=== PATIENT | female | born 1940 | race Caucasian/White ===

== ENCOUNTER 2016-11-07 08:58 | Inpatient (IN) ==
[~2016-11-07 08:58] MED LIST: ACETAMINOPHEN 500 MG TABLET PO ONE; CLINDAMYCIN PB 900 MG/50 ML BAG IV ONE; DEXAMETHASONE 4 MG/ML INJECTION IVP ONE; EPINEPHrine 0.25 MG, BUPIVACAINE 0.25% PF 30 ML, MORPHINE SULFATE 15 MG, KETOROLAC INJ ... OPSITE ONE; FAMOTIDINE PB 20 MG/50 ML BAG IV ONE; LIDOCAINE 1% (10mg/ml) 10mL MDV SQ ONE; MELOXICAM 15 MG TABLET PO ONE; METOCLOPRAMIDE 10mg/2ml INJECTION IVP ONE; NOZIN NASAL SWAB NAS ONE; ONDANSETRON 4 MG/2 ML INJECTION IVP ONE; TRANEXAMIC ACID 1,000 MG in NS 100 ML IV ONE; VANCOMYCIN 1,000 MG INJECTION ONE
[2016-11-07 09:12] VITALS: BMI 24.3
[2016-11-07] MEDS ORDERED: SALINE FLUSH 10ml SYRINGE IVF PRN (09:19)
[2016-11-07] MEDS: LR 1,000 ML IV SCH ×3 (09:25→12:29)
--- NOTE | 2016-11-07 09:36 | Anesthesia Preoperative Report ---
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 Proposed Procedure: right knee arthroplasty NPO Since Date: 11/06/16 NPO Since Time: 23:00 Allergies/Adverse Reactions: Allergies Allergy/AdvReac Type Severity Reaction Status Date / Time amoxicillin Allergy Unknown RASH,HIVES Verified 11/07/16 09:24 - Vital Signs Vital Signs: Temperature 97.8 F 11/07/16 09:12 Pulse Rate 61 11/07/16 09:29 Respiratory Rate 15 11/07/16 09:12 Blood Pressure 186/94 H 11/07/16 09:12 Pulse Oximetry 95 11/07/16 09:12 Oxygen Delivery Method Room Air Height and Weight: Height 1.7 m Weight 70.4 kg Body Mass Index 24.3 - Medications Inpatient Medications: Current Medications Lactated Ringer's (Lactated Ringers) 1,000 mls @ 50 mls/hr IV .Q20H KENN Last Admin: 11/07/16 09:25 Dose: 50 mls/hr Sodium Chloride (Iv Flush) 10 - 80 ml IVF PRN PRN PRN Reason: [place] Home Medications: Home Medications Medication Instructions Recorded Confirmed Type Albuterol Sulfate [Ventolin Hfa] 2 puff INH Q4-6H PRN #0 06/14/15 10/30/16 History Azelastine HCl 2 spray NS DAILY #0 06/14/15 10/30/16 History Fluticasone Nasal [place] [Flonase] 2 spray NS DAILY #0 06/14/15 11/07/16 History APAP/Diphenhydramine 500/25 1 tab PO HS 10/30/16 11/07/16 History [Tylenol Pm] DiphenhydrAMINE [Benadryl] 1 cap PO Q6H PRN 10/30/16 11/07/16 History Omeprazole [Prilosec] 1 cap PO ACB 10/30/16 11/07/16 History Melatonin/Pyridoxine HCl (B6) 1 - 2 tab PO HS PRN 11/06/16 11/06/16 History [Melatonin 10 mg Tablet] - Surgical History HEENT Surgeries: Reports: Eye Surgery (cataract surgery OU), Tonsillectomy, Other (Sinus surgery) GI Surgery/Treatments: Reports: Colonoscopy Musculoskeletal Surgery/Tx: Reports: Knee Arthroscopy, Total Knee Replacement ( left) Reproductive Surgery/Treatment: Reports: Hysterectomy Anesthesia Reactions: None Hx Family Anesthesia Reaction: No - Social History Smoking Status: Never smoker - Pertinent Findings EKG Rhythm: Normal Sinus Rhythm - Physical Exam Respiratory Exam: Present: lungs clear, bilateral breath sounds equal Cardiovascular Exam: Present: regular rate and rhythm, no murmur - Airway Assessment Mallampati Score: II TMD: 3 Fingerbreadths Neck Extension: good Overall Assessment: no airway concerns - ASA ASA Score: 2 - Plan Anesthesia: General Inhalation Gases Regional/Trunk Block: Spinal Peripheral Nerve Block: Saphenous-Right - Discussion Discussion: Discussed risks/options/alternatives of anesthesia and questions answered. Patient consents. Nursing pain assessment noted. Attestation Statement: Prior to the delivery of any anesthetic medication, I examined the patient, developed the plan, obtained the patient's consent and discussed the risk and benefits of the procedure with the patient/guardian.
[2016-11-07] MEDS ORDERED: VANCOMYCIN 1,000 MG INJECTION IAR ONE (09:37)
[2016-11-07] MEDS ORDERED: FentaNYL 100 MCG/2 ML INJECTION ONE (10:33)
[2016-11-07] MEDS ORDERED: MIDAZOLAM 2mg/2ml INJECTION ONE (10:34)
[2016-11-07] MEDS ORDERED: KETAMINE 500 MG/10 ML INJECTION ONE (10:45)
[2016-11-07] MEDS ORDERED: PROPOFOL 20 ML ONE (10:45)
--- NOTE | 2016-11-07 12:05 | Operative Note ---
- Procedure Date of Admission: 11/07/16 Side: right Preoperative Diagnosis: knee primary DJD Postoperative Diagnosis: Same as preoperative diagnosis. Operation: Procedures Total knee replacement (10/06/13) Operation: total knee arthroplasty Surgeon: Dk Dugan MD Palletizer: ROSI Crain Complications: None. Regional/Trunk Block: Spinal Peripheral Nerve Block: Saphenous-Right Estimated Blood Loss: See Anesthesia Record. Fluids: Please see Anesthesia Record. Description of Procedure: Mrs. Montalvo and the right knee were identified and marked in the preoperative holding area. She was brought back to the operating suite and placed supine on the operating table. Spinal anesthetic was administered. The operative lower extremity was prepped and draped in a sterile fashion. Timeout was performed. She had a fixed varus deformity. An anterior midline incision followed by a sub- vastus arthrotomy was performed. The tourniquet was not used until cementing. Hemostasis was obtained with electrocautery. The patella was resurfaced to a size 32. A distal femoral osteotomy was then performed in 5 of valgus using intramedullary guide. The femur was sized at a for and rotation set using the epicondylar axis. Distal femoral cuts were performed with a 4-in-1 cutting block. A proximal tibial cut was then made perpendicular to its long axis using an extramedullary guide. At this point remaining meniscus and osteophytes were removed and joint cocktail was injected throughout soft tissue. A medial release was performed. Trial components were placed with a 9 mm spacer. This allowed for full extension and flexion and the patella tracked well. The leg was then exsanguinated and the tourniquet inflated to 250 mmHg. The tibia was then stamped at a size 3 at the proper rotation. The bone was then prepared for cementing and [place] [employer] components were cemented into place and allowed to cure in extension. The tourniquet was then let down and hemostasis obtained with electrocautery. Betadine solution was used during the curing period for 3 minutes. 1 g of vancomycin powder was placed into the joint before the capsulotomy was repaired with #1 Vicryl. I then left my health care legal assistant close the subcutaneous tissue and skin with 2-0 Vicryl and Monocryl. Dermabond was used on the skin. The drapes were then removed and she was taken to recovery room under the care of anesthesia.
[2016-11-07] MEDS ORDERED: ROPIVACAINE 0.5% (5mg/ml) 30ml INJ ONE (12:06)
--- NOTE | 2016-11-07 12:19 | History & Physical Update ---
- History and Physical Update Date: 11/07/16 Update: I evaluated this patient and found no changes in the history and clinical exam findings. The treatment plan and recommendations are also unchanged from the previous documentation.
--- NOTE | 2016-11-07 12:41 | Anesthesia Procedure Note ---
Peripheral Nerve Blockade - Procedure Physician: Clement Dugan MD Date: 11/07/16 Surgical Procedure: right knee arthroplasty Discussion: Discussed risks/options/alternatives of anesthesia and questions answered. Patient consents. Nursing pain assessment noted. Block Start: 12:30 Block Stop: 12:35 Blocked Employed: Adductor Canal Indication: Post-Operative Pain Approach: Right Side Confirmed Position: Supine Patient: Consent, Risks/Benefits Discussed, Informed IV Sedation: No Initial Vital Signs: Temperature 97.8 F 11/07/16 09:12 Temperature Source Oral 11/07/16 09:12 Pulse Rate 65 11/07/16 09:12 Respiratory Rate 15 11/07/16 09:12 Blood Pressure 186/94 H 11/07/16 09:12 Blood Pressure Mean 124 11/07/16 09:12 Blood Pressure Position Sitting 11/07/16 09:12 Pulse Oximetry 95 11/07/16 09:12 Oxygen Delivery Method 11/07/16 09:12 Post Vital Signs: Temperature 97.8 F 11/07/16 09:12 Pulse Rate 61 11/07/16 09:29 Respiratory Rate 15 11/07/16 09:12 Blood Pressure 186/94 H 11/07/16 09:12 Pulse Oximetry 95 11/07/16 09:12 Oxygen Delivery Method Room Air Initial Pain Pain Score: 0 Post Block Pain Score: 0 Prep: Chlorhexadine/ETOH Ultrasound Used?: Yes - Injectate Ropivacaine (%): 0.5 Ropivacaine (mL): 20 Was Epi 1:200,000 Used?: No Injection: Injection made incrementally with constant monitoring and aspiration every ml
--- NOTE | 2016-11-07 12:42 | Anesthesia Postoperative Note ---
- Date and Time Date: 11/07/16 Time: 12:40 - Status Patient Participated in Evaluation: Patient Participated in Person Vital Signs: Temperature 97.8 F 11/07/16 09:12 Pulse Rate 61 11/07/16 09:29 Respiratory Rate 15 11/07/16 09:12 Blood Pressure 186/94 H 11/07/16 09:12 Pulse Oximetry 95 11/07/16 09:12 Oxygen Delivery Method Room Air Respiratory Function: Airway Patent Cardiovascular Function: Regular Pulse EKG Rhythm: Normal Sinus Rhythm Pain Intensity: 0 Hydration: IV Infusing Complications During Recover: None Apparent - Follow-Up Instructions Instructions: Per Surgeon
[2016-11-07] MEDS ORDERED: DiphenhydrAMINE 50 MG/ML INJECTION IVP PRN (13:15)
[2016-11-07] MEDS ORDERED: ONDANSETRON 4 MG/2 ML INJECTION IVP PRN (13:15)
[2016-11-07] MEDS ORDERED: NOZIN NASAL SWAB NAS ONE (13:15)
[2016-11-07] MEDS ORDERED: NAPROXEN 220 MG TABLET PO PRN (13:15)
[2016-11-07] MEDS ORDERED: ALBUTEROL 2.5mg/3ml (0.083%) NEB AEROSOL PRN (13:15)
[2016-11-07] MEDS ORDERED: LORazepam 1 MG TABLET PO PRN (13:15)
[2016-11-07] MEDS ORDERED: DiphenhydrAMINE 25 MG CAPSULE PO PRN (13:15)
--- NOTE | 2016-11-07 13:16 | XRay Report ---
Indication: postoperative image PROCEDURE: XR knee RT 2V: Encounter: Initial Comparison: None Findings: Postoperative changes of right total knee replacement are seen. There is expected postoperative subcutaneous gas. No evidence of hardware failure or acute fracture. No retained radiopaque surgical instruments or sponges. Overlying material causing artifact. Impression: New right total knee prosthesis without evidence of immediate complication. .
[2016-11-07] MEDS: NS 1,000 ML IV SCH (13:40)
[2016-11-07] MEDS: NOZIN NASAL SWAB NAS SCH ×2 (14:10→22:26)
[2016-11-07] MEDS: ACETAMINOPHEN 325 MG TABLET PO SCH ×3 (14:10→22:10)
[2016-11-07] MEDS: TRAMADOL 50 MG TABLET PO PRN (15:03)
[2016-11-07] MEDS: CLINDAMYCIN PB 900 MG/50 ML BAG IV SCH ×2 (16:19→22:26)
[2016-11-07] MEDS ORDERED: AZELASTINE 0.1% NASAL SPRAY EA NOSTRIL SCH (21:00)
[2016-11-07 21:03] VITALS: TEMP 97.6
[2016-11-07] MEDS ORDERED: SENNOSIDES 8.6 MG TABLET PO SCH (22:00)
[2016-11-07] MEDS: DOCUSATE SODIUM 100 MG CAPSULE PO SCH (22:13)
[2016-11-07] MEDS: ASPIRIN *EC* 325 MG TABLET PO SCH (22:14)
[2016-11-08] MEDS: NS 1,000 ML IV SCH (01:29)
[2016-11-08] MEDS: CLINDAMYCIN PB 900 MG/50 ML BAG IV SCH (04:13)
[2016-11-08 04:25] VITALS: RESP 16
[2016-11-08] MEDS: NOZIN NASAL SWAB NAS SCH (06:17)
[2016-11-08] MEDS ORDERED: OMEPRAZOLE 20 MG CAPSULE PO SCH (06:30)
[2016-11-08 07:50] VITALS: BP 152/71; PULSE 65; O2SAT 94
--- NOTE | 2016-11-08 08:17 | Orthopedic Progress Note ---
Date: Subjective/Severity of Illness: Daniela is doing great. She has minimal complaints. Night went okay. She is ready to get up with PT. No CV / Resp complaints. Orthopedic Objective PO Vital signs: Temperature 97.6 F 11/08/16 07:49 Pulse Rate 65 11/08/16 07:49 Respiratory Rate 16 11/08/16 07:49 Blood Pressure 152/71 H 11/08/16 07:49 Pulse Oximetry 94 11/08/16 07:49 Oxygen Delivery Method Room Air Height and Weight: Height 5 ft 7 in Weight 155 lb 3.287 oz Body Mass Index 24.3 - Constitutional General Appearance: Present: alert, cooperative, no acute distress - Respiratory Exam Present: non-labored - Extremities Exam Extremities: Present: pulses intact. Absent: calf tenderness - Surgical Site Incision: Mepilex dressing intact, no drainage - Neurological Exam Present: no deficits - Psychiatric Exam Present: alert, normal affect - Labs Result Diagrams: 11/08/16 04:42 11/08/16 04:42 Abnormal lab results 11/08/16 11/08/16 Range/Units 04:42 04:42 WBC 12.3 H (4.5-11.0) T/MM3 RBC 3.89 L (4.00-5.20) M/MM3 Creatinine 0.6 L (0.7-1.2) MG/DL Glucose 112 H (65-110) MG/DL H & H 11/08/16 Range/Units 04:42 Hgb 12.1 (12-16) GM/DL Hct 36.3 (36-46) % Orthopedic Assessment and Plan (1) Primary osteoarthritis of right knee Status: Acute Assessment and Plan: Current anti-coagulation protocol for VTE prophylaxis. SCD's. PT/OT services to improve independent function. Discharge Planning per Case Management. Hospital Course Summary Disclaimer: The visit summary below is not to be considered part of the above Progress Note.
--- NOTE | 2016-11-08 08:51 | Discharge Summary ---
Orthopedic Discharge Info Date of admission: 11/07/16 08:58 Anticipated date of discharge: 11/08/16 Primary care physician: Patt Farah MD Attending Physician: Clement Dugan MD Consults: 11/07/16 09:10 Consult to Anesthesiology [CONS] Routine Consulting Provider: ROSI Bland Reason For Exam: Preoperative Assessment 11/07/16 13:15 Case Management Consult [CONS] Routine Reason For Exam: Discharge Planning DME-Walker [CONS] Routine Height: 5 ft 7 in Weight: 155 lb 3.287 oz Comment: change dressing in 2 weeks Total Joint Outpatient Therapy [CONS] Routine Comment: change dressing in 2 weeks - Discharge Diagnosis (1) Primary osteoarthritis of right knee Status: Acute - Procedures Procedures: Procedures Lt Total knee replacement (10/06/13) Rt Total knee replacement (11/07/16) - Laboratory Result Diagrams: 11/08/16 04:42 11/08/16 04:42 Laboratory: Abnormal lab results 11/08/16 11/08/16 Range/Units 04:42 04:42 WBC 12.3 H (4.5-11.0) T/MM3 RBC 3.89 L (4.00-5.20) M/MM3 Creatinine 0.6 L (0.7-1.2) MG/DL Glucose 112 H (65-110) MG/DL H & H 11/08/16 Range/Units 04:42 Hgb 12.1 (12-16) GM/DL Hct 36.3 (36-46) % Orthopedic Discharge HPI - HPI Comments This patient was admitted for elective surgical tx of end stage degenerative joint disease that failed to respond to conservative treatment. Further details of this is found in the admission H&P. Orthopedic Hospital Course Hospital course: 11/08/16 08:48 After appropriate preoperative clearance and signing of operative consent, the patient was given IV antibiotics, according to orthopedic protocol. The patient was taken to the operating room and underwent elective right total knee arthroplasty. Following surgery, antibiotics were discontinued less than 24 hours according to joint protocol. Aspirin was initiated and SCDs added for DVT prevention. The dressing was clean, dry, and intact. Pain control was obtained via multimodal approach. Bowel motivation addressed with scheduled and PRN medications. Early mobilization was initiated through PT services. Discharge arrangements made by a collaborative effort between the patient and Case Management. Follow-up is scheduled in 2-3 weeks. Discharge instructions given by orthopedic providers and nursing staff at discharge. Discharge condition was good. Ongoing care required?: No Discharge Plan - Med Rec/Dispo Referrals/Follow Up: Clement Dugan MD [Physician] - 11/29/16 9:00 am Additional Instructions: [facility] ON 11/10/2016 AT 11:30AM FOR PHYSICAL THERAPY EVAL WITH EDUARDO. PHONE [phone] Prescriptions: New Acetaminophen [Tylenol] 650 mg PO QID tablet Milk of Magnesia [Mom] 30 ml PO DAILY udc Naproxen [Aleve] 440 mg PO BID PRN tablet PRN Reason: Pain PEG 3350 17gm PACKET [Miralax] 17 gm PO DAILY packet Aspirin *EC* [Ecotrin] 325 mg PO BID #84 tablet Tramadol [Ultram] 50 - 100 mg PO Q6H PRN #50 tablet PRN Reason: Pain Continue Azelastine HCl 2 spray NS DAILY #0 Albuterol Sulfate [Ventolin Hfa] 2 puff INH Q4-6H PRN #0 PRN Reason: Wheezing DiphenhydrAMINE [Benadryl] 1 cap PO Q6H PRN PRN Reason: Allergy Symptoms APAP/Diphenhydramine 500/25 [Tylenol Pm] 1 tab PO HS Omeprazole [Prilosec] 1 cap PO ACB Melatonin/Pyridoxine HCl (B6) [Melatonin 10 mg Tablet] 1 - 2 tab PO HS PRN PRN Reason: Sleep Fluticasone Nasal [place] [Flonase] 2 spray NS DAILY #0 - Disposition 01 Discharged Home, Self-Care
[2016-11-08] MEDS ORDERED: POLYETHYL GLYCOL 3350 17gm PACKET PO SCH (09:00)
[2016-11-08] MEDS ORDERED: FLUTICASONE NASAL SPRAY 50mcg EA NOSTRIL SCH (09:00)
[2016-11-08] MEDS: ACETAMINOPHEN 325 MG TABLET PO SCH (09:38)
[2016-11-08] MEDS: DOCUSATE SODIUM 100 MG CAPSULE PO SCH (09:38)
[2016-11-08] MEDS: ASPIRIN *EC* 325 MG TABLET PO SCH (09:38)
[2016-11-08] MEDS: TRAMADOL 50 MG TABLET PO PRN (09:44)
[2016-11-08] MEDS ORDERED: SENNOSIDES 8.6 MG TABLET PO PRN (12:21)
[2016-11-09] MEDS ORDERED: BISACODYL 10 MG SUPPOSITORY RECTALLY SCH (20:00)
== END 2016-11-08 14:30 | disposition home or self-care (01) | DRG 470 ==
LOC: SRG 08:58
PROVIDERS: ADMIT Orthopaedic Surgery; ATTEND Orthopaedic Surgery

== ENCOUNTER 2017-09-14 21:08 | Inpatient (IN) ==
[2017-09-14] MEDS ORDERED: NS 1,000 ML IV ONE ×2 (21:29→22:24)
--- NOTE | 2017-09-14 21:32 | Emergency Department Report ---
General Adult HPI - General Chief complaint: Weakness Stated complaint: weak aches not eating Time Seen by Provider: 09/14/17 21:29 - History of Present Illness HPI narrative: 77-year-old female with progressive weakness over the last 2-3 days. She was seen yesterday in clinic and told she most likely had a viral URI. Today she is continued to worsen. She did have a fever earlier today, but has taken Tylenol and now is afebrile. She feels like her heart is beating quickly and feels like she is lightheaded when she stands. No injury or other illness noted. - Related Data Home Medications Medication Instructions Recorded Confirmed Albuterol Sulfate [Ventolin Hfa] 2 puff INH Q4-6H PRN #0 06/14/15 09/14/17 Azelastine HCl 2 spray NS DAILY #0 06/14/15 09/14/17 Fluticasone Nasal [place] [Flonase] 2 spray NS DAILY #0 06/14/15 09/14/17 DiphenhydrAMINE [Benadryl] 1 cap PO Q6H PRN 10/30/16 09/14/17 Omeprazole [Prilosec] 1 cap PO ACB 10/30/16 09/14/17 Melatonin/Pyridoxine HCl (B6) 1 - 2 tab PO HS PRN 11/06/16 09/14/17 [Melatonin 10 mg Tablet] Previous Rx's Medication Instructions Recorded Acetaminophen [Tylenol] 650 mg PO QID tab 11/08/16 Aspirin *EC* [Ecotrin] 325 mg PO BID #84 tab 11/08/16 Allergies Allergy/AdvReac Type Severity Reaction Status Date / Time amoxicillin Allergy Unknown RASH,HIVES Verified 09/14/17 21:23 Review of Systems All systems: reviewed and negative except as stated PFSH Patient Stated Medical History Transient Ischemic Attacks ( Yes: patient states about 4-5 years ago, no TIA) deficits Sleep Apnea No Other Respiratory Yes: Seasonal allergies Gastroesophageal Reflux Yes Disease Hx Incontinence Yes Hx Urinary Tract Infection Yes Osteoarthritis Yes Clinic Medical History (Last Reviewed 12/18/16 @ 11:46 by ROSI Campo) Osteoarthritis (Acute Medical) Cataract (Chronic Medical) GERD (gastroesophageal reflux disease) (Chronic Medical) TIA (transient ischemic attack) (Resolved Medical) Surgical History: Rt TKA 7-11-17, Lt TKA, Sinus surg, hysterectomy Family History: Family History (Last Reviewed 12/18/16 @ 11:46 by ROSI Campo) Mother Congestive heart failure Arthritis Father Stroke Arthritis Paternal Grandmother Stomach cancer Paternal Grandfather Heart attack - Social History Smoking status: Never smoker Substance use type: does not use Alcohol intake frequency: does not drink Household members: spouse Current occupational status: retired Current residence: Apartment/Private Home Physical Exam - Limitations Limitations: no limitations - General General appearance: alert - Normal Exams: Head:: Normocephalic without trauma Neurological:: Patient is alert, and oriented, cranial nerves, motor/sensory/ cerebellar, exams w/o gross deficits, to observation Psychiatric:: Patient exhibits, appropriate attention, emotion and affect Course Vital Signs Pulse Rate 94 09/14/17 21:18 Pulse Oximetry 93 09/14/17 21:18 Temperature 98.7 F 09/16/17 13:00 Pulse Rate 101 H 09/16/17 12:00 Respiratory Rate 20 09/16/17 13:30 Blood Pressure 137/95 H 09/16/17 13:00 Pulse Oximetry 94 09/16/17 13:30 Medical Decision Making - Lab Data Result diagrams: 09/16/17 04:17 09/16/17 04:17 Lab Results 09/14/17 09/14/17 09/14/17 Range/Units 21:36 21:36 23:45 WBC 8.4 (4.5-11.0) T/MM3 RBC 5.19 (4.00-5.20) M/MM3 Hgb 16.1 H (12-16) GM/DL Hct 46.7 H (36-46) % MCV 90.0 (80-100) UM3 MCH 31.0 (26-34) UUG MCHC 34.5 (31-37) GM/DL RDW Std Deviation 45.3 (36.9-50.2) FL Plt Count 140 (130-400) T/MM3 MPV 11.2 (9.4-12.4) UM3 Immature Gran % (Auto) Not performed Neut % (Auto) Not performed Lymph % (Auto) Not performed [place] % (Auto) Not performed Eos % (Auto) Not performed Baso % (Auto) Not performed Neut # (Auto) Not performed Lymph # (Auto) Not performed [place] # (Auto) Not performed Eos # (Auto) Not performed Baso # (Auto) Not performed Abs Immat Gran (auto) Not performed Neutrophils % (Manual) 86.0 H (33-66) % Band Neutrophils % 3.0 (0-6) % Lymphocytes % (Manual) 8.0 L (23-45) % Monocytes % (Manual) 3.0 (0-9.0) % Eosinophils % (Manual) (0-4) % Neutrophils # (Manual) 7.2 (1.8-7.7) T/MM3 Band Neutrophils # 0.3 T/MM3 Lymphocytes # (Manual) 0.7 L (1-4.8) T/MM3 Monocytes # (Manual) 0.3 (0-0.8) T/MM3 Eosinophils # (Manual) (0-0.5) T/MM3 RBC Morph Comment Normal Turbidity < 20 (0-20) Sodium 138 (134-144) MEQ/L Potassium 3.7 (3.6-5) MEQ/L Chloride 99 (98-107) MEQ/L Carbon Dioxide 19 L (22-30) MEQ/L Anion Gap 20 H (5-15) meq/L BUN 29.0 H (7-17) MG/DL Creatinine 1.3 H (0.7-1.2) mg/dL GFR Calculation 40 BUN/Creatinine Ratio 22 (6-26) RATIO Glucose 127 H (65-110) MG/DL Calculated Osmolality 274 (261-280) MOSM/KG Calcium 8.5 (8.4-10.2) MG/DL Total Bilirubin 0.60 (0.20-1.30) MG/DL Icterus Index < 2 (0-7) AST 39 H (14-36) U/L ALT 33 (1-35) U/L Alkaline Phosphatase 79 (38-126) U/L Troponin I 0.835 H (0-0.12) ng/ml Total Protein 6.8 (6.3-8.2) g/dL Albumin 4.0 (3.5-5.0) g/dL Globulin 2.8 (2.4-3.6) G/DL Albumin/Globulin Ratio 1.4 (1.1-2.2) RATIO Plasma Lactate 1.3 (0.6-2.2) MMOL/L Specimen Hemolysis < 15 (0-25) Ur Collection Type Urine, void-cc/notcc Urine Color Yellow (YELLOW) Urine Clarity Sl cloudy Urine pH 6.0 (5.0-8.0) Ur Specific [place] 1.025 (1.015-1.025) Urine Protein 1+ A (NEGATIVE) Urine Glucose (UA) Negative (NEGATIVE) Urine Ketones Trace A (NEGATIVE) Urine Occult Blood 1+ A (NEGATIVE) Urine Nitrate Positive A (NEGATIVE) Urine Bilirubin 1+ A (NEGATIVE) Urine Urobilinogen 0.2 (NORMAL) EU/DL Ur Leukocyte Esterase Trace A (NEGATIVE) Urine RBC 3-5 H (0-3) /HPF Urine WBC 20-30 H (0-5) /HPF Urine Bacteria 2+ H (NEGATIVE) Hyaline Casts 1-3 /LPF Granular Casts 0-1 Ur Culture Indicated? Cult reflexed &setup 09/15/17 09/15/17 09/15/17 Range/Units 00:12 05:13 10:08 WBC (4.5-11.0) T/MM3 RBC (4.00-5.20) M/MM3 Hgb (12-16) GM/DL Hct (36-46) % MCV (80-100) UM3 MCH (26-34) UUG MCHC (31-37) GM/DL RDW Std Deviation (36.9-50.2) FL Plt Count (130-400) T/MM3 MPV (9.4-12.4) UM3 Immature Gran % (Auto) Neut % (Auto) Lymph % (Auto) [place] % (Auto) Eos % (Auto) Baso % (Auto) Neut # (Auto) Lymph # (Auto) [place] # (Auto) Eos # (Auto) Baso # (Auto) Abs Immat Gran (auto) Neutrophils % (Manual) (33-66) % Band Neutrophils % (0-6) % Lymphocytes % (Manual) (23-45) % Monocytes % (Manual) (0-9.0) % Eosinophils % (Manual) (0-4) % Neutrophils # (Manual) (1.8-7.7) T/MM3 Band Neutrophils # T/MM3 Lymphocytes # (Manual) (1-4.8) T/MM3 Monocytes # (Manual) (0-0.8) T/MM3 Eosinophils # (Manual) (0-0.5) T/MM3 RBC Morph Comment Turbidity < 20 (0-20) Sodium 138 (134-144) MEQ/L Potassium 3.7 (3.6-5) MEQ/L Chloride 107 D (98-107) MEQ/L Carbon Dioxide 17 L (22-30) MEQ/L Anion Gap 14 (5-15) meq/L BUN 27.0 H (7-17) MG/DL Creatinine 0.9 D (0.7-1.2) mg/dL GFR Calculation 61 BUN/Creatinine Ratio 30 H (6-26) RATIO Glucose 114 H (65-110) MG/DL Calculated Osmolality 272 (261-280) MOSM/KG Calcium 7.9 L (8.4-10.2) MG/DL Total Bilirubin (0.20-1.30) MG/DL Icterus Index < 2 (0-7) AST (14-36) U/L ALT (1-35) U/L Alkaline Phosphatase (38-126) U/L Troponin I 0.792 H 0.424 H (0-0.12) ng/ml Total Protein (6.3-8.2) g/dL Albumin (3.5-5.0) g/dL Globulin (2.4-3.6) G/DL Albumin/Globulin Ratio (1.1-2.2) RATIO Plasma Lactate 1.1 (0.6-2.2) MMOL/L Specimen Hemolysis < 15 < 15 < 15 (0-25) Ur Collection Type Urine Color (YELLOW) Urine Clarity Urine pH (5.0-8.0) Ur Specific [place] (1.015-1.025) Urine Protein (NEGATIVE) Urine Glucose (UA) (NEGATIVE) Urine Ketones (NEGATIVE) Urine Occult Blood (NEGATIVE) Urine Nitrate (NEGATIVE) Urine Bilirubin (NEGATIVE) Urine Urobilinogen (NORMAL) EU/DL Ur Leukocyte Esterase (NEGATIVE) Urine RBC (0-3) /HPF Urine WBC (0-5) /HPF Urine Bacteria (NEGATIVE) Hyaline Casts /LPF Granular Casts Ur Culture Indicated? 09/15/17 Range/Units 10:09 WBC 8.1 (4.5-11.0) T/MM3 RBC 4.40 (4.00-5.20) M/MM3 Hgb 13.7 D (12-16) GM/DL Hct 40.2 D (36-46) % MCV 91.4 (80-100) UM3 MCH 31.1 (26-34) UUG MCHC 34.1 (31-37) GM/DL RDW Std Deviation 46.7 (36.9-50.2) FL Plt Count 130 (130-400) T/MM3 MPV 11.1 (9.4-12.4) UM3 Immature Gran % (Auto) Not performed Neut % (Auto) Not performed Lymph % (Auto) Not performed [place] % (Auto) Not performed Eos % (Auto) Not performed Baso % (Auto) Not performed Neut # (Auto) Not performed Lymph # (Auto) Not performed [place] # (Auto) Not performed Eos # (Auto) Not performed Baso # (Auto) Not performed Abs Immat Gran (auto) Not performed Neutrophils % (Manual) 74.0 H (33-66) % Band Neutrophils % 4.0 (0-6) % Lymphocytes % (Manual) 12.0 L (23-45) % Monocytes % (Manual) 3.0 (0-9.0) % Eosinophils % (Manual) 7.0 H (0-4) % Neutrophils # (Manual) 6.0 (1.8-7.7) T/MM3 Band Neutrophils # 0.3 T/MM3 Lymphocytes # (Manual) 1.0 (1-4.8) T/MM3 Monocytes # (Manual) 0.2 (0-0.8) T/MM3 Eosinophils # (Manual) 0.6 H (0-0.5) T/MM3 RBC Morph Comment Normal Turbidity (0-20) Sodium (134-144) MEQ/L Potassium (3.6-5) MEQ/L Chloride (98-107) MEQ/L Carbon Dioxide (22-30) MEQ/L Anion Gap (5-15) meq/L BUN (7-17) MG/DL Creatinine (0.7-1.2) mg/dL GFR Calculation BUN/Creatinine Ratio (6-26) RATIO Glucose (65-110) MG/DL Calculated Osmolality (261-280) MOSM/KG Calcium (8.4-10.2) MG/DL Total Bilirubin (0.20-1.30) MG/DL Icterus Index (0-7) AST (14-36) U/L ALT (1-35) U/L Alkaline Phosphatase (38-126) U/L Troponin I (0-0.12) ng/ml Total Protein (6.3-8.2) g/dL Albumin (3.5-5.0) g/dL Globulin (2.4-3.6) G/DL Albumin/Globulin Ratio (1.1-2.2) RATIO Plasma Lactate (0.6-2.2) MMOL/L Specimen Hemolysis (0-25) Ur Collection Type Urine Color (YELLOW) Urine Clarity Urine pH (5.0-8.0) Ur Specific [place] (1.015-1.025) Urine Protein (NEGATIVE) Urine Glucose (UA) (NEGATIVE) Urine Ketones (NEGATIVE) Urine Occult Blood (NEGATIVE) Urine Nitrate (NEGATIVE) Urine Bilirubin (NEGATIVE) Urine Urobilinogen (NORMAL) EU/DL Ur Leukocyte Esterase (NEGATIVE) Urine RBC (0-3) /HPF Urine WBC (0-5) /HPF Urine Bacteria (NEGATIVE) Hyaline Casts /LPF Granular Casts Ur Culture Indicated? Disposition Clinical Impression: Dehydration Disposition: 02 To [facility] Acute Care Condition: Stable
[2017-09-14] MEDS: SALINE FLUSH 10ml SYRINGE IVF PRN (21:35)
--- OUTSIDE RECORDS SUMMARY | 2017-09-14 21:49 | External Medical Summary | Summary of Care ---
:1940 Author Name Feng Vaughan M.D. Address [address] [place], [place] [id number] Care Team Providers Name Role Phone Feng Vaughan M.D. Unavailable Unavailable Patt Farah Primary Care Provider Unavailable Unavailable Unavailable Unavailable Functional Status Functional Status Health Issues Name Dates Details Functional status health issues are not documented Status: Cognitive Status Health Issues Name Dates Details Cognitive status health issues are not documented Status: Problems Name Dates Details Actinic keratosis (702.0, L57.0) Status: Active Fatigue (780.79, R53.83) Status: Active Hypertension (401.9, I10) Status: Active Hypothyroidism (244.9, E03.9) Status: Active BPPV (benign paroxysmal positional vertigo), right (386.11, H81.11) Status: Active Acute sinusitis (461.9, J01.90) Status: Active Sinus congestion (478.19, R09.81) Status: Active Chronic sinusitis (473.9, J32.9) Status: Active Laryngopharyngeal reflux (LPR) (478.79, J38.7) Status: Active GERD (gastroesophageal reflux disease) (530.81, K21.9) Status: Active Medications Name Dates Details Ventolin HFA 108 (90 Base) MCG/ACT Inhalation Aerosol Solution INHALE 1 TO 2 PUFFS EVERY 4 TO 6 HOURS NEEDED. Refills: 0 Feng Vaughan M.D. Started 04-May-2015 ActiveFluticasone Propionate 50 MCG/ACT Nasal Suspension 2 squirts ea nostril once daily Quantity: 1 Refills: 3 Feng Vaughan M.D. Started 03-Jun-2015 [id number] GM Bottle Azelastine HCl - 0.1 % Nasal Solution INSTILL 2 SPRAYS IN EACH NOSTRIL ONCE DAILY Quantity: 1 Refills: 0 Feng Vaughan M.D. Started 03-Jun-2015 [id number] ML Bottle Carafate 1 GM Oral Tablet Refills: 0 Feng Vaughan M.D. Started 31-Aug-2015 ActiveOmeprazole 40 MG Oral Capsule Delayed Release TAKE 1 CAPSULE TWICE DAILY. Quantity: 60 Refills: 3 Feng Vaughan M.D. Started 31-Aug-2015 Active Allergies and Adverse Reactions Name Dates Details Amoxicillin CAPS Reaction: Hives (Severe) Status: Active Past Medical History Name Dates Details History of BPPV (benign paroxysmal positional vertigo), right (386.11, H81.11) Status: Resolved Procedures Procedure Dates Details History of Hysterectomy History of Tonsillectomy With Adenoidectomy History of Sinus Surgery Procedures not documented Immunization Name Dates Details Tdap (Adacel) Administered on:07-Dec-2004 Pneumo (Pneumovax) Administered on:Aug-2012 Fluzone Quadrivalent 0.5 ML Intramuscular Suspension Administered on:2014 Family History Mother Name Dates Details Family history of congestive heart failure (V17.49, Z82.49) Status: Active Social History Name Dates Details Smoking StatusNever smoker Vital Signs Date Test Result Details 31-Aug-2015 10:42 BP Systolic 139 mm[Hg] Status: BP Diastolic 84 mm[Hg] Status: Temperature 97.9 f Status: Heart Rate 59 /min Status: Results Date Description Value Details Results not documented Plan of Care Planned Observations Name Dates Details Planned Goals not documented Goal Planned Encounters Appointment; Provider: Feng Vaughan On 10:30 Instructions Instructions not documented Encounters Appointment; Feng Vaughan On 31-Aug-2015 Encounter Diagnosis: Problem not documented 10:45 Appointment; Feng Vaughan On 01-Jun-2015 Encounter Diagnosis: Problem not documented 10:30 Appointment; Feng Vaughan On 04-May-2015 Encounter Diagnosis: Problem not documented 09:30
--- OUTSIDE RECORDS SUMMARY | 2017-09-14 21:49 | External Medical Summary | Summary of Care ---
:1940 Author Name Feng Vaughan M.D. Address [address], [place] [id number] Care Team Providers Name Role Phone Feng [...] Active Chronic sinusitis (473.9, J32.9) Status: Active GERD (gastroesophageal reflux disease) (530.81, K21.9) Status: Active Medications Name Dates Details Cephalexin 500 MG Oral Capsule TAKE 1 CAPSULE 3 TIMES DAILY UNTIL GONE. Refills: 0 Feng Vaughan M.D. Started 04-May-2015 ActiveVentolin HFA 108 (90 Base) MCG/ACT Inhalation Aerosol Solution INHALE 1 TO 2 PUFFS EVERY 4 TO 6 HOURS NEEDED. Refills: 0 Feng Vaughan M.D. Started 04-May-2015 ActiveDymista 137-50 MCG/ACT Nasal Suspension instill one squirt each nostril twice daily Quantity: 1 Refills: 3 Feng Vaughan M.D. Started 01-Jun-2015 [id number] GM Bottle Allergies and Adverse Reactions Name Dates Details [...] smoker Vital Signs Date Test Result Details 01-Jun-2015 10:57 Temperature 98.6 f Status: Heart Rate 74 /min Status: Weight 148 lb Status: Body Mass Index Calculated 23.18 kg/m2 Status: Body Surface Area Calculated 1.78 m2 Status: 04-May-2015 09:08 BP Systolic 118 mm[Hg] Status: BP Diastolic 79 mm[Hg] Status: Temperature 98.2 f Status: Heart Rate 73 /min Status: Height 67 in Status: Weight 148.5 lb Status: Body Mass Index Calculated 23.26 kg/m2 Status: Body Surface Area Calculated 1.78 m2 Status: Results Date Description Value Details Results not documented Plan of Care Planned Observations Name Dates Details Planned Goals not documented Goal Planned Encounters Appointment; Provider: Feng Vaughan On 31-Aug-2015 10:45 Instructions Instructions not documented Encounters Appointment; Feng Vaughan On 01-Jun-2015 Encounter Diagnosis: Problem not documented 10:30 Appointment; Feng Vaughan On 04-May-2015 Encounter Diagnosis: Problem not documented 09:30
--- OUTSIDE RECORDS SUMMARY | 2017-09-14 21:49 | External Medical Summary | Summary of Care ---
:1940 Author Name Feng Vaughan M.D. Address [address] [place], [place] [id number] Care Team Providers Name Role Phone Feng [...] Refills: 3 Feng Vaughan M.D. Started 03-Jun-2015 [id number] GM Bottle Azelastine HCl - 0.1 % Nasal Solution INSTILL 2 SPRAYS IN EACH NOSTRIL ONCE DAILY Quantity: 1 Refills: 0 Feng Vaughan M.D. Started 03-Jun-2015 [id number] ML Bottle Carafate 1 GM Oral Tablet [...] smoker Vital Signs Date Test Result Details 10:32 BP Systolic 139 mm[Hg] Status: BP Diastolic 78 mm[Hg] Status: Temperature 97.9 f Status: Heart Rate 55 /min Status: Results Date Description Value Details Results not documented Plan of Care Planned Observations Name Dates Details Planned Goals not documented Goal Instructions Instructions not documented Encounters Appointment; Feng Vaughan On Encounter Diagnosis: Problem not documented 10:30 Appointment; Feng Vaughan On 31-Aug-2015 Encounter Diagnosis: Problem not documented 10:45 Appointment; Feng Vaughan On 01-Jun-2015 Encounter Diagnosis: Problem not documented 10:30 Appointment; Feng Vaughan On 04-May-2015 Encounter Diagnosis: Problem not documented 09:30
--- OUTSIDE RECORDS SUMMARY | 2017-09-14 21:49 | External Medical Summary | Summary of Care ---
:1940 Author Name Feng Vaughan M.D. Address [address] [place], [place] [id number] Care Team Providers Name Role Phone Feng Vaughan M.D. Unavailable Unavailable Patt Farah Primary Care Provider Unavailable Unavailable Unavailable Unavailable Functional Status Functional Status Health Issues Name Dates Details Functional status health issues are not documented Status: Cognitive Status Health Issues Name Dates Details Cognitive status health issues are not documented Status: Problems Name Dates Details Actinic keratosis (702.0, L57.0) Status: Active Sinus congestion (478.19, R09.81) Status: Active Fatigue (780.79, R53.83) Status: Active Hypertension (401.9, I10) Status: Active GERD (gastroesophageal reflux disease) (530.81, K21.9) Status: Active Hypothyroidism (244.9, E03.9) Status: Active Medications Name Dates Details Cephalexin 500 MG Oral Capsule TAKE 1 CAPSULE 3 TIMES DAILY UNTIL GONE. Refills: 0 Feng Vaughan M.D. Started 04-May-2015 ActiveVentolin HFA 108 (90 Base) MCG/ACT Inhalation Aerosol Solution INHALE 1 TO 2 PUFFS EVERY 4 TO 6 HOURS NEEDED. Refills: 0 Feng Vaughan M.D. Started 04-May-2015 ActiveAfrin 12 Hour 0.05 % Nasal Solution USE DIRECTED. Refills: 0 Feng Vaughan M.D. Started 04-May-2015 ActiveFlonase Allergy Relief 50 MCG/ACT Nasal Suspension USE 1 SPRAY IN EACH NOSTRIL ONCE DAILY. Refills: 0 Feng Vaughan M.D. Started 04-May-2015 Active Allergies and Adverse Reactions Name Dates Details Amoxicillin CAPS Reaction: Hives (Severe) Status: Active Procedures Procedure Dates Details History of Hysterectomy [...] smoker Vital Signs Date Test Result Details 04-May-2015 09:08 BP Systolic 118 mm[Hg] Status: [...] not documented Encounters Appointment; Feng Vaughan On 04-May-2015 Encounter Diagnosis: Problem not documented 09:30
--- OUTSIDE RECORDS SUMMARY | 2017-09-14 21:49 | External Medical Summary | Summary of Care ---
:1940 Author Name Feng Vaughan M.D. Address [address] [place], [place] [id number] Care Team Providers Name Role Phone Feng [...] Active Sinus congestion (478.19, R09.81) Status: Active Medications Name Dates Details Cephalexin [...] Refills: 0 Feng Vaughan M.D. Started 04-May-2015 ActivePredniSONE 10 MG Oral Tablet Take 4 pills for 3 days, then 3 pills for 3 days, then 2 pills for 3 days, then 1 pill for 3 days then stop Quantity: 30 Refills: 0 Feng Vaughan M.D. Started 04-May-2015 Ended 16-May-2015 Active Allergies and Adverse Reactions Name Dates [...]
[2017-09-14] MEDS ORDERED: IOHEXOL 350mg/ml 75ml INJECTION ONE (22:44)
[2017-09-14] MEDS ORDERED: SALINE FLUSH 10ml SYRINGE ONE (22:45)
[2017-09-15] MEDS ORDERED: CEFTRIAXONE (ER USE ONLY) 1 GM in NS 100 ML IV ONE
[2017-09-15] MEDS: NS 1,000 ML IV SCH ×5 (00:42→23:06)
[2017-09-15] MEDS ORDERED: ONDANSETRON 4 MG/2 ML INJECTION IVP PRN (02:11)
[2017-09-15 02:22] VITALS: BMI 24.0
--- NOTE | 2017-09-15 03:45 | History & Physical Report ---
History of Present Illness Date: 09/15/17 Chief complaint: Weakness HPI: 77 yo F with PMH of GERD and Knee replacement in 2017 presented to the ED with reports of increased weakness of the past 2-3 days. She reports it started on Sunday with generalized body aches and weakness, it progressively got worse. She also reports SOA and increased use of her albuterol inhaler. She was seen yesterday in clinic and told she most likely had a viral URI. Her symptoms continued to get worse so she came to the ED. She did have a fever earlier today , but has taken Tylenol and now is afebrile. She feels like her heart is beating quickly and feels like she is lightheaded when she stands. No injury or other illness noted. She was found to have a UTI and be dehydrated in the ED. She had a critical troponin, and EKG was NSR. Cardiology consulted, thought secondary to URI and dehydration. Recommended admission for fluids and monitoring. Review of Systems All systems PM: 10-point ROS was reviewed, no additional remarkable complaints except Past Medical History Medical History: Medical History (Last Reviewed 12/18/16 @ 11:46 by ROSI Campo) Osteoarthritis Cataract GERD (gastroesophageal reflux disease) TIA (transient ischemic attack) Surgical History: Rt TKA 11-07-16, Lt TKA, Sinus surg, hysterectomy Family History: Family History (Last Reviewed 12/18/16 @ 11:46 by ROSI Campo) Mother Congestive heart failure Arthritis Father Stroke Arthritis Paternal Grandmother Stomach cancer Paternal Grandfather Heart attack Family History: As Above - Social History Smoking status: Never smoker Medications Home Medications Medication Instructions Recorded Confirmed Type Albuterol Sulfate [Ventolin Hfa] 2 puff INH Q4-6H PRN #0 06/14/15 09/14/17 History Azelastine HCl 2 spray NS DAILY #0 06/14/15 09/14/17 History Fluticasone Nasal [place] [Flonase] 2 spray NS DAILY #0 06/14/15 09/14/17 History DiphenhydrAMINE [Benadryl] 1 cap PO Q6H PRN 10/30/16 09/14/17 History Omeprazole [Prilosec] 1 cap PO ACB 10/30/16 09/14/17 History Melatonin/Pyridoxine HCl (B6) 1 - 2 tab PO HS PRN 11/06/16 09/14/17 History [Melatonin 10 mg Tablet] Acetaminophen [Tylenol] 650 mg PO QID tab 11/08/16 09/14/17 Rx Aspirin *EC* [Ecotrin] 325 mg PO BID #84 tab 11/08/16 09/14/17 Rx Allergies Allergy/AdvReac Type Severity Reaction Status Date / Time amoxicillin Allergy Unknown RASH,HIVES Verified 09/14/17 21:23 Exam Vital Signs: Temperature 98.4 F 09/14/17 21:20 Pulse Rate 81 09/15/17 03:00 Respiratory Rate 27 H 09/15/17 03:00 Blood Pressure 94/62 09/15/17 03:00 Pulse Oximetry 93 09/15/17 03:00 Telemetry Rhythm: Sinus Rhythm Height/Weight/BMI: Height 1.7 m Weight 69.5 kg Body Mass Index 24.0 - Constitutional Present: no acute distress - Routine Respiratory Exam Present: CTA bilaterally. Absent: wheezes - Routine Cardiovascular Exam Present: RRR. Absent: murmur - Routine Abdominal Exam Present: soft, normoactive bowel sounds, non distended. Absent: tenderness - Routine Extremities Exam Present: normal capillary refill - Routine Neurological Exam Present: alert, oriented X3 - Routine Psychiatric Exam Present: normal affect Results - Labs CBC & Chem 7: 09/14/17 21:36 09/14/17 21:36 Assessment and Plan (1) UTI (urinary tract infection) Current visit: Yes Status: Acute (2) NSTEMI (non-ST elevated myocardial infarction) Current visit: Yes Status: Acute (3) Dehydration Current visit: Yes Status: Acute Assessment and Plan: Patient admitted. Given IV ceftriaxone for her UTI, started on aggressive IVF with NS at 150 cc/hr. virginie has type 2 NSTEMI due to stress of dehydration and UTI. Monitor on tele overnight, repeat troponin at 04:00. DVT Prophylaxis: SCD's Resuscitation Status: Full Code - Physician Narrative Narrative: Date: 09/15/17 Time: 0341 Hospital Course Summary Disclaimer: The visit summary below is not to be considered part of the above Progress Note.
[2017-09-15] MEDS: ACETAMINOPHEN 325 MG TABLET PO PRN ×3 (07:45→19:03)
[2017-09-15] MEDS ORDERED: MENTHOL COUGH DROPS (RICOLA) MM PRN (10:33)
[2017-09-15] MEDS: CEFTRIAXONE 1 G in NS 100 ML IV SCH (11:44)
[2017-09-15] MEDS: MAG-AL + SIM ORAL LIQUID 30ml PO PRN ×2 (13:31→22:14)
--- NOTE | 2017-09-15 17:02 | Cardiology Consult Note ---
<SoniAmanda Jen - Last Filed: 09/15/17 17:14> History of Present Illness Consult date: 09/15/17 Chief complaint: elevated troponin History of present illness: Patient is a 77yo female with history of TIA, GERD, osteoarthritis, and recent URI that complains of falling sick after water aerobics on Sunday09-10-17 with all over body aches, fatigue, non productive cough, and fever. Denies cardiac chest pain, n/v, diaphoresis, syncope, shortness of air, or palpitations. Troponin on admission 0.8, ECG negative for ischemic changes, SBP 80-90's, and positive for UTI. No other significant physical findings or lab abnormalities noted. Review of Systems - Constitutional Constitutional: Present: fatigue, weakness - Cardiovascular Cardiovascular: Absent: chest pain, palpitations, syncope, dyspnea on exertion, orthopnea, edema, heart murmur Vascular: Absent: pedal edema - Respiratory Respiratory: Present: cough. Absent: dyspnea, wheezing, pain on inspiration - Gastrointestinal Gastrointestinal: Absent: abdominal pain, dyspepsia, nausea, vomiting - Musculoskeletal Musculoskeletal: Present: myalgias. Absent: abnormal gait, joint swelling - Integumentary/Breasts Integumentary: Absent: non-healing lesions, swelling, wounds - Neurological Neurological: Absent: abnormal speech, loss of vision, restless legs - Psychiatric Psychiatric: Absent: abnormal sleep pattern, anxiety, depression - Endocrine Endocrine: Absent: heat intolerance, palpitations [facility] Clinic Medical History (Last Reviewed 12/18/16 @ 11:46 by ROSI Campo) Osteoarthritis (Acute Medical) Cataract (Chronic Medical) GERD (gastroesophageal reflux disease) (Chronic Medical) TIA (transient ischemic attack) (Resolved Medical) Surgical History: Rt TKA 11-07-16, Lt TKA, Sinus surg, hysterectomy Family History: Family History (Last Reviewed 12/18/16 @ 11:46 by ROSI Campo) Mother Congestive heart failure Arthritis Father Stroke Arthritis Paternal Grandmother Stomach cancer Paternal Grandfather Heart attack - Social History Smoking status: Never smoker Substance use type: does not use Alcohol intake frequency: does not drink Household members: spouse Current occupational status: retired Current residence: Apartment/Private Home Medications Home Medications Medication Instructions Recorded Confirmed Type Albuterol Sulfate [Ventolin Hfa] 2 puff INH Q4-6H PRN #0 06/14/15 09/21/17 History Azelastine HCl 2 spray NS DAILY #0 06/14/15 09/21/17 History Fluticasone Nasal [place] [Flonase] 2 spray NS DAILY #0 06/14/15 09/21/17 History DiphenhydrAMINE [Benadryl] 1 cap PO Q6H PRN 10/30/16 09/21/17 History Omeprazole [Prilosec] 1 cap PO ACB 10/30/16 09/21/17 History Melatonin/Pyridoxine HCl (B6) 1 - 2 tab PO HS PRN 11/06/16 09/21/17 History [Melatonin 10 mg Tablet] Acetaminophen [Tylenol] 650 mg PO QID tab 11/08/16 09/21/17 Rx Allergies Allergy/AdvReac Type Severity Reaction Status Date / Time amoxicillin Allergy Unknown RASH,HIVES Verified 09/14/17 21:23 Exam Vital signs: Temperature 97.6 F 09/15/17 11:39 Pulse Rate 83 09/15/17 16:00 Respiratory Rate 22 09/15/17 16:00 Blood Pressure 119/69 09/15/17 16:00 Pulse Oximetry 94 09/15/17 16:00 - Constitutional mild distress - Routine HEENT Exam Head: Present: normocephalic Eye: Present: EOMI ENT: Present: mucous membranes moist - Routine Neck Exam Present: JVD. Absent: carotid bruit - Routine Respiratory Exam Present: CTA bilaterally. Absent: dyspnea, wheezes - Routine Cardiovascular Exam Present: RRR, S1, S2 - Routine Abdominal Exam Present: soft, normoactive bowel sounds - Routine Extremities Exam Absent: cyanosis, clubbing, edema - Routine Skin Exam Present: intact, dry - Routine Neurological Exam Present: alert, oriented X3 - Routine Psychiatric Exam Present: normal affect Results 09/15/17 10:09 09/15/17 10:08 Intake and Output 09/15/17 09/15/17 09/15/17 06:59 14:59 22:59 Intake Total 1095.0 / 1302.5 Output Total 300 / 300 Balance 795.0 / 1002.5 Intake: IV 1095.0 / 1302.5 Ceftriaxone 1 g In Ns 100 ml @ 100 / 100 200 mls/hr IV Q24H [facility] Rx#: [id number] Ns 1,000 ml @ 150 mls/hr IV . 995.0 / 1202.5 Q6H40M [facility] Rx#:[id number] Output: Urine 300 / 300 Other: Urine Color Dark Yellow Size of Bowel Movement Small # Bowel Movements 1 - Imaging and Cardiology Echo: pending - EKG Interpretation EKG: sinus rhythm EKG interpretations - Dysrhythmias Sinus rhythms and dysrhythmias: sinus rhythm Assessment and Plan - Assessment and Plan (1) NSTEMI (non-ST elevated myocardial infarction) Start date: 09/14/17 Status: Acute Likely r/t acute infection Echo pending Trop peak at 0.8, no ischemia noted on ECG No complaints of chest pain Thank you for the consult. Will continue to follow with you (2) Hypotension Start date: 09/14/17 Status: Acute Fluid bolus as needed Consider pressor support to keep MAP <65 (3) UTI (urinary tract infection) Start date: 09/14/17 Status: Acute ABX per attending Hospital Course Summary Disclaimer: The visit summary below is not to be considered part of the above Progress Note. <Fernando Brady - Last Filed: 09/25/17 11:35> [facility] Patient Stated Medical History Sleep Apnea No Clinic Medical History (Last Reviewed 09/22/17 @ 20:05 by Adela Downs MD ) Osteoarthritis (Acute Medical) Cataract (Chronic Medical) GERD (gastroesophageal reflux disease) (Chronic Medical) TIA (transient ischemic attack) (Resolved Medical) Family History: Family History (Last Reviewed 12/18/16 @ 11:46 by ROSI Campo) Mother Congestive heart failure Arthritis Father Stroke Arthritis Paternal Grandmother Stomach cancer Paternal Grandfather Heart attack Exam Vital signs: Temperature 97.8 F 09/21/17 12:00 Pulse Rate 80 09/21/17 12:00 Respiratory Rate 12 09/21/17 12:00 Blood Pressure 148/83 H 09/21/17 12:00 Pulse Oximetry 94 09/21/17 12:00 Results 09/21/17 04:31 09/21/17 04:31 Assessment and Plan - Attestation Attestation Narrative: 09/25/17 11:35 Recommendation After examining the patient I agree with the above assessment. I am involved in the formulation of the patient's plan of care. - Assessment and Plan (1) UTI (urinary tract infection) Status: Resolved (2) NSTEMI (non-ST elevated myocardial infarction) Status: Resolved (3) Hypotension Status: Acute Hospital Course Summary Disclaimer: The visit summary below is not to be considered part of the above Progress Note.
[2017-09-15] MEDS: HYDROCODONE/APAP 5mg/325mg TABLET PO PRN (22:15)
[2017-09-15] MEDS: ALBUTEROL 2.5mg/3ml (0.083%) NEB AEROSOL PRN (22:49)
[2017-09-16] MEDS: HYDROCODONE/APAP 5mg/325mg TABLET PO PRN ×3 (03:29→23:23)
[2017-09-16] MEDS: MAG-AL + SIM ORAL LIQUID 30ml PO PRN ×3 (03:29→17:33)
[2017-09-16] MEDS: NS 1,000 ML IV SCH ×2 (05:47→21:15)
[2017-09-16] MEDS: ALBUTEROL 2.5mg/3ml (0.083%) NEB AEROSOL PRN ×3 (05:56→17:53)
[2017-09-16] MEDS: ACETAMINOPHEN 325 MG TABLET PO PRN (08:39)
--- NOTE | 2017-09-16 10:27 | Progress Note ---
- Date 09/16/17 Subjective: F/U: Severe sepsis secondary to UTI, UTI with E coli, Type II NSTEMI secondary to sepsis Feeling slightly better. Still very weak, tired, and achy. No appetite-will take sips but not able to have much intake. Mild nausea. Ab discomfort decreasing. Passing flatus. Breathing fair-did have Neb treatment which helped breathing. No chest pressure or pain. Not feeling increase swelling to arms or legs. Objective Vital signs: Temperature 98.4 F 09/16/17 07:56 Pulse Rate 89 09/16/17 07:56 Respiratory Rate 18 09/16/17 07:56 Blood Pressure 126/69 09/16/17 07:56 Pulse Oximetry 94 09/16/17 07:56 Height/Weight/BMI: Weight 73.5 kg - Constitutional Present: well nourished, well developed, average body habitus, cooperative, other (Appear tire and weak) - Routine HEENT Exam Head: Present: normocephalic, atraumatic Eye: Present: EOMI, PERRL, normal accommodation. Absent: conjunctival icterus ENT: Present: mucous membranes moist - Routine Respiratory Exam Present: decreased breath sounds, distant breath sounds. Absent: respiratory distress, wheezes, crackles - Routine Cardiovascular Exam Present: no murmur, tachycardia (Regular ) - Routine Abdominal Exam Present: soft, non distended, non tender. Absent: normoactive bowel sounds ( decreased), guarding - Routine Extremities Exam Present: no edema, pulses intact. Absent: cyanosis, clubbing Comments: SCD in place - Routine Musculoskeletal Exam Musculoskeletal: Present: no clubbing or cyanosis - Routine Skin Exam Present: dry, warm - Routine Neurological Exam Present: alert, oriented X3, CN II-XII intact, moving all extremities, vision grossly intact, hearing grossly intact, normal speech. Absent: motor deficit, altered mental status - Routine Psychiatric Exam Present: normal affect, normal thought process, cooperative. Absent: anxious, agitated Results - Labs CBC & Chem 7: 09/16/17 04:17 09/16/17 04:17 Assessment and Plan (1) Severe sepsis Current visit: Yes Status: Acute (2) UTI (urinary tract infection) Current visit: Yes Status: Acute (3) NSTEMI (non-ST elevated myocardial infarction) Current visit: Yes Status: Acute (4) Dehydration Current visit: Yes Status: Acute Assessment and Plan: Assessment Severe sepsis secondary to UTI Manifestations: encephalopathy, elevated troponin, acute kidney injury UTI - E coli NSTEMI - suspect Type II secondary to sepsis Acute Kidney injury - baseline creatinine 0.6 Metabolic acidosis Dehydration - hemoconcentration noted on presentation Encephalopathy - resolved Generalized debility secondary to acute illness Asthma/Allergies OA GERD Plan Urine culture growing E coli - will continue ceftriaxone and continue to check C /S. Continue with IVF of NS at 100c/hr as oral drive decreased. Creatinine improving with IVF - YURIY resolving. Advance diet at able - still with decreased oral drive. Cardiology ordered ECHO due to NSTEMI - results pending. As medically improving, will transfer to medical floor on tele for continuation of care. Recheck CBC in am secondary to resolving sepsis. Check BMP in am due to IVF use. Case discussed with CCU nursing. Time spent with patient care 25 minutes. DVT Prophylaxis: SCD's Resuscitation Status: Full Code - Time spent with patient Time with patient PN: 25 minutes - Physician Narrative Physician: Yuan Lara MD Narrative: Date: 09/16/17 Time: 1023 Hospital Course Summary Disclaimer: The visit summary below is not to be considered part of the above Progress Note. Hospital Course: 09/15/17 Admit to inpatient secondary to severe sepsis secondary to UTI - anticipate greater than 2 midnights of care needed. Ceftriaxone for urinary coverage - checking urine culture/sensitivities. IVF initiated at 150 cc/hr. Will recheck BMP to assess renal function. BP showing improvement from ED. Will decrease IVF to 100cc/hr. Consult with Dr Brady due to elevated troponin - suspect Type II NSTEMI. Tele secondary to NSTEMI. Zofran and Compazine prn nausea. Clear liquid diet due to decreased oral drive, advance as able. SCD for DVT prevention. Monitor lab. Full code as per patient request. Care to return to Dr Farah [place] [facility] [place] 09/16/17 Urine culture growing E coli - will continue ceftriaxone and continue to check C /S. Continue with IVF of NS at 100c/hr as oral drive decreased. Creatinine improving with IVF - YURIY resolving. Advance diet at able - still with decreased oral drive. Cardiology ordered ECHO due to NSTEMI - results pending. As medically improving, will transfer to medical floor on tele for continuation of care.
[2017-09-16] MEDS ORDERED: DiphenhydrAMINE 25 MG CAPSULE PO PRN (10:37)
[2017-09-16] MEDS: CEFTRIAXONE 1 G in NS 100 ML IV SCH (11:22)
--- NOTE | 2017-09-16 12:13 | CT Scan Report ---
Indication: dyspnea, PROCEDURE: CT angio pulm emboli: Encounter: Initial Comparison: None Technique: Axial CT pulmonary angiographic phase images were performed through the chest after the administration of intravenous contrast. Coronal and Sagittal MIP reconstructed images were created and reviewed. Automated Exposure Control and Iterative Reconstruction dose reducing techniques were utilized. Contrast: Omnipaque 350 65 mL Findings: Pulmonary arteries: Exam is diagnostic to the subsegmental pulmonary arterial level. No filling defects identified to suggest a pulmonary embolus. Other findings: Lungs are clear. No pleural effusion or pneumothorax. Central airways are patent. No axillary or mediastinal adenopathy by CT criteria. Heart size is normal. Trace pericardial effusion. The upper abdomen shows no acute findings. Impression: No pulmonary embolus or acute intrathoracic disease process seen. There is a preliminary report by [employer]. .
--- NOTE | 2017-09-16 12:14 | XRay Report ---
INDICATION: weakness PROCEDURE: CHEST 2-VIEWS UPRIGHT (PA & LAT) Encounter: Initial COMPARISON: CTA chest from the same date and chest x-ray dated June 14, 2015 FINDINGS: Small area of atelectasis or scarring in the left base. Lungs are otherwise clear. There is no pleural effusion or pneumothorax. The heart size, mediastinal contours and pulmonary vascularity are within normal limits. There is no significant skeletal abnormality. IMPRESSION: No pneumonia. .
[2017-09-16] MEDS: ACETAMINOPHEN 325 MG TABLET PO SCH ×3 (15:07→21:20)
[2017-09-16] MEDS ORDERED: VANCOMYCIN - PHARMACY CONSULT MC ONE (20:03)
[2017-09-16] MEDS: MORPHINE SULFATE 2mg INJ IVP PRN ×2 (20:30→23:21)
--- NOTE | 2017-09-16 20:30 | Progress Note ---
Progress Note: Nursing staff reported concerns to me at 1900 of pt running a temp up to 101.9 and c/o more wheezing and abdominal pain. Patient c/o neck pain 8/10, headache 7/10, abdominal pain 10/10. She states her abdomen feels "hard and full." She' s only had very small BM's but feels she is passing gas. reports she has only eaten 2 pieces of toast in the past 6 days. SHe has no appetite and will only eat ice chips. SHe has been feeling more wheezy and SOA and wanted another breathing tx w/in 30 min of her previous tx. Exam: slight rales in LLL, conversational dyspnea, mildly tachycardic, diffuse abd pain most prominent in the lower abdomen, no guarding, no meningeal signs. She meets sepsis criteria with SIRS (temp and tachycardia and tachypnea and suspected source of infection in the abdomen. Her liver enzymes were elevated today.) Sepsis w-u initiated - BCx2, lactate, CBC, BMP/liver, repeat UA, CT abd/pelvis for abd pain. CXR for increased wheezing/SOA. (CTA chest neg on admission.) EKG and troponin added as nurse reported pt c/o some CP with her SOA. (Had NSTEMI on admission. Cardiology is on board.) DC Rocephin and start vanc and cefipime (allergy to amoxicillin so no Zosyn.) Case discussed with Dr Acosta and nursing.
[2017-09-16] MEDS: ASPIRIN *EC* 325 MG TABLET PO SCH (21:19)
[2017-09-16] MEDS: ALBUTEROL/IPRATROPIUM 2.5mg-0.5mg/3ml NEB AEROSOL SCH (21:45)
[2017-09-16] MEDS: CEFEPIME 1 GM in NS 100 ML IV SCH (22:15)
[2017-09-16] MEDS: ENOXAPARIN 80 MG/0.8 ML INJECTION SQ SCH (23:40)
[2017-09-16] MEDS: LORazepam 0.5 MG TABLET PO PRN (23:56)
[2017-09-17] MEDS: NS 1,000 ML IV SCH ×5 (01:06→15:44)
[2017-09-17] MEDS: CEFEPIME 1 GM in NS 100 ML IV SCH ×2 (03:30→09:09)
[2017-09-17] MEDS: PROCHLORPERAZINE 10 MG/2 ML INJECTION IVP PRN ×2 (04:14→19:44)
[2017-09-17] MEDS: MORPHINE SULFATE 2mg INJ IVP PRN (04:19)
[2017-09-17] MEDS: ALBUTEROL/IPRATROPIUM 2.5mg-0.5mg/3ml NEB AEROSOL SCH ×4 (04:31→20:19)
[2017-09-17] MEDS: OMEPRAZOLE 20 MG CAPSULE PO SCH (06:49)
--- NOTE | 2017-09-17 08:42 | CT Scan Report ---
Indication: abd pain, fever PROCEDURE: CT abdomen pelvis wo con: Encounter: Initial Comparison: None. Findings: There are small bilateral pleural effusions with probably passive dependent atelectasis. Overall heart size is normal. There is a small pericardial effusion or pericardial thickening. The liver and spleen are unremarkable in contour. Gallbladder is mildly distended with some hyperdense debris or sludge. Adrenal glands are normal. The pancreas is uniform in contour. Adrenal glands are symmetric in size without hydronephrosis or perinephric collection. Abdominal aorta is nonaneurysmal with a few scattered calcific atherosclerotic plaques. No retroperitoneal or mesenteric adenopathy. No definite bowel distention or bowel wall thickening. Pelvis: The urinary bladder is not distended. There is moderate edema in the presacral space. There is a small amount of free fluid in the pelvic cul-de-sac. The uterus is surgically absent. No definite bony destructive process. There is moderate degenerative disc disease of the lower lumbar spine with vacuum phenomenon. Impression: Moderate perirectal edema including presacral edema with a small amount of ascites in the pelvic cul-de-sac. A postcontrast CT is recommended if symptoms persist. Hyperdense material in the gallbladder suggesting stones or sludge. .
--- NOTE | 2017-09-17 08:43 | XRay Report ---
Indication: SOA, wheeze PROCEDURE: XR chest 2V: Encounter: Initial Comparison: 09/14/2017 Findings: There are bibasilar somewhat discoid linear changes of atelectasis and/or scarring with possible small bilateral pleural effusions. There is prominence of the cardiac silhouette which may be accentuated by the AP portable technique. No definite mediastinal or hilar adenopathy. The trachea is midline. No subdiaphragmatic free air. No significant tortuosity of the descending thoracic aorta. Impression: Bibasilar nonspecific linear and discoid changes of atelectasis and/or scarring. Follow-up to resolution is recommended. .
[2017-09-17] MEDS: ALBUTEROL/IPRATROPIUM 2.5mg-0.5mg/3ml NEB AEROSOL PRN (08:59)
[2017-09-17] MEDS: ACETAMINOPHEN 325 MG TABLET PO SCH ×4 (09:09→21:21)
[2017-09-17] MEDS: ENOXAPARIN 80 MG/0.8 ML INJECTION SQ SCH (09:09)
[2017-09-17] MEDS: ASPIRIN *EC* 325 MG TABLET PO SCH ×2 (09:10→21:22)
[2017-09-17] MEDS ORDERED: BISACODYL 10 MG SUPPOSITORY RECTALLY PRN (10:20)
--- NOTE | 2017-09-17 10:32 | Progress Note ---
- Date 09/17/17 Subjective: F/U: Severe sepsis secondary to UTI, UTI with E coli, Type II NSTEMI secondary to sepsis Rough. Feels more weak/tired-taxing to move around. Confusion but not with agitation. No appetite, having nausea. Ab feels more full. Feels slightly SOA but not having cough or congestion. Urinating well. Not having muscle cramps. Objective Vital signs: Temperature 99.3 F 09/17/17 04:00 Pulse Rate 92 09/17/17 04:00 Respiratory Rate 28 H 09/17/17 08:59 Blood Pressure 153/89 H 09/17/17 04:00 Pulse Oximetry 95 09/17/17 08:59 Height/Weight/BMI: Weight 73.5 kg - Constitutional Present: mild distress, well nourished, well developed, other (Appears weak. ) - Routine HEENT Exam Head: Present: normocephalic, atraumatic Eye: Present: EOMI, PERRL ENT: Present: mucous membranes moist - Routine Respiratory Exam Present: decreased breath sounds. Absent: respiratory distress, wheezes, crackles - Routine Cardiovascular Exam Present: RRR, no murmur - Routine Abdominal Exam Present: soft, non distended, non tender. Absent: normoactive bowel sounds ( decreased) - Routine Extremities Exam Present: edema (Trace BLE ), pulses intact. Absent: cyanosis, clubbing - Routine Musculoskeletal Exam Musculoskeletal: Present: no clubbing or cyanosis - Routine Skin Exam Present: dry, warm - Routine Neurological Exam Present: CN II-XII intact, moving all extremities, vision grossly intact, hearing grossly intact. Absent: motor deficit - Routine Psychiatric Exam Present: cooperative Comments: Psychomotor slowing Results - Labs CBC & Chem 7: 09/17/17 03:44 09/17/17 03:44 Microbiology Results: Microbiology 09/16/17 20:37 Peripheral/Iv Start Blood Culture - Preliminary Culture Initiated - Results Pending 09/16/17 20:30 Peripheral/Iv Start Blood Culture - Preliminary Culture Initiated - Results Pending Assessment and Plan (1) Severe sepsis Current visit: Yes Status: Acute (2) UTI (urinary tract infection) Current visit: Yes Status: Acute (3) NSTEMI (non-ST elevated myocardial infarction) Current visit: Yes Status: Acute (4) Dehydration Current visit: Yes Status: Acute Assessment and Plan: Assessment Severe sepsis secondary to UTI Manifestations: encephalopathy, elevated troponin, acute kidney injury UTI - E coli NSTEMI - suspect Type II secondary to sepsis Acute Kidney injury - baseline creatinine 0.6 Metabolic acidosis Dehydration - hemoconcentration noted on presentation Encephalopathy - resolved Generalized debility secondary to acute illness Asthma/Allergies OA GERD Plan Urine culture growing E coli - will continue ceftriaxone as showing sensitivity. Cefepime started yesterday evening as pt had temp elevation. Do not feel this will add more than. CT ab/pelvis showing GB sludge - will check US GB. Decrease with IVF of NS to 75cc/hr. Advance diet at able - still with decreased oral drive. PT/OT to help improve functional status. Cardiology ordered ECHO due to NSTEMI - results pending. Recheck CBC in am secondary to resolving sepsis. Check CMP in am due to IVF use. Case discussed with nursing and pt's . Time spent with patient care 25 minutes. DVT Prophylaxis: Lovenox Resuscitation Status: Full Code - Time spent with patient Time with patient PN: 25 minutes - Physician Narrative Physician: Yuan Lara MD Narrative: Date: 09/17/17 Time: 1028 Hospital Course Summary Disclaimer: The visit summary below is not to be considered part of the above Progress Note. Hospital Course: 09/15/17 Admit to inpatient secondary to severe sepsis secondary to UTI - anticipate greater than 2 midnights of care needed. Ceftriaxone for urinary coverage - checking urine culture/sensitivities. IVF initiated at 150 cc/hr. Will recheck BMP to assess renal function. BP showing improvement from ED. Will decrease IVF to 100cc/hr. Consult with Dr Brady due to elevated troponin - suspect Type II NSTEMI. Tele secondary to NSTEMI. Zofran and Compazine prn nausea. Clear liquid diet due to decreased oral drive, advance as able. SCD for DVT prevention. Monitor lab. Full code as per patient request. Care to return to Dr Farah at time of discharge from [facility] [place]. 09/16/17 Urine culture growing E coli - will continue ceftriaxone and continue to check C /S. Continue with IVF of NS at 100c/hr as oral drive decreased. Creatinine improving with IVF - YURIY resolving. Advance diet at able - still with decreased oral drive. Cardiology ordered ECHO due to NSTEMI - results pending. As medically improving, will transfer to medical floor on tele for continuation of care. 09/17/17 Urine culture growing E coli - will continue ceftriaxone as showing sensitivity. Cefepime started yesterday evening as pt had temp elevation. Do not feel this will add more than. CT ab/pelvis showing GB sludge - will check US GB. Decrease with IVF of NS to 75cc/hr. Advance diet at able - still with decreased oral drive. PT/OT to help improve functional status.
[2017-09-17] MEDS: FLUTICASONE NASAL SPRAY 50mcg EA NOSTRIL SCH (10:36)
--- NOTE | 2017-09-17 11:04 | XRay Report ---
Indication: Dyspnea PROCEDURE: XR chest 1V: Encounter: Initial Comparison: 09/16/2017 Findings: There is bibasilar pulmonary opacity with obliteration of the left diaphragm suggesting bibasilar atelectasis and/or pleural effusion. There is prominence of the cardiac silhouette which may be accentuated by the AP portable technique. Trachea is midline. No subdiaphragmatic free air. There is moderate overlying EKG lead artifact. Impression: Bibasilar atelectasis and/or pleural effusion, similar to prior exam. .
--- NOTE | 2017-09-17 13:28 | Pharmacy Consult-Antibiotics ---
Pharmacy Consult-Vancomycin - Laboratory Information WBC 7.3 T/MM3 (4.5-11.0) 09/17/17 03:44 BUN 11.0 MG/DL (7-17) 09/17/17 03:44 Creatinine 0.6 mg/dL (0.7-1.2) L 09/17/17 03:44 Procalcitonin 1.54 NG/ML 09/16/17 20:38 - Consult Information VANCOMYCIN CONSULT: Dx: Severe Sepsis 2ndary to UTI (E. Coli) GISELL is a 77 yo female with PMH of GERD and Knee replacement in 2016 presented to the ED with reports of increased weakness of the past 2-3 days. She reports it started on Sunday with generalized body aches and weakness, it progressively got worse. She also reports SOA and increased use of her albuterol inhaler. She was seen yesterday in clinic and told she most likely had a viral URI. Her symptoms continued to get worse so she came to the ED. She did have a fever earlier today, but has taken Tylenol and now is afebrile. She was found to have a UTI and be dehydrated in the ED. She had a critical troponin , and EKG was NSR. Cardiology consulted, thought secondary to URI and dehydration. Recommended admission for fluids and monitoring. Renal Function: S Cr = 0.6 mg/dl Estimated Cr Cl = 50 mL/min WBC's 7.3 T/mm3 PCT = 1.54 ng/mL (elevated) 24-hr Tmax = 99.4 degrees F Patient was started on Vancomycin 1,250 mg iv every 12 hours, but computer model indicates that the Vancomycin would be best at 1,375 mg iv every 18 hours. The Pharmacy will continue to monitor and adjust regimen to maintain therapeutic levels. Thank you for the Vancomycin Protocol, Ilan Campbell, Pharmacist.
--- NOTE | 2017-09-17 13:59 | Cardiology Progress Note ---
<Gabi Dawn - Last Filed: 09/17/17 13:54> Subjective Principal diagnosis: weakness Interval history: Daniela is seen in follow up for UTI, NSTEMI and hypotension. She is alert in her bed, in no acute distress. She denies chest pain or pressure, dyspnea, palpitations or complaints. Exam Vital signs: Temperature 98.7 F 09/17/17 11:37 Pulse Rate 106 H 09/17/17 11:37 Respiratory Rate 16 09/17/17 11:37 Blood Pressure 115/65 09/17/17 11:37 Pulse Oximetry 93 09/17/17 11:37 Inpatient Medications: Generic Name Dose Route Start Last Admin Trade Name Freq PRN Reason Stop Dose Admin Acetaminophen 325 - 650 mg 09/15/17 07:43 09/16/17 08:39 Tylenol PO 650 mg Q5H PRN Administration Discomfort Acetaminophen 650 mg 09/16/17 13:00 09/17/17 12:48 Tylenol PO 650 mg QID KENN Administration Hydrocodone Bitart/Acetaminophen 1 tab 09/15/17 02:11 09/16/17 23:23 Garber 5/325 PO 1 tab Q6H PRN Administration Pain Al Hydroxide/Mg Hydroxide 30 ml 09/15/17 13:27 09/16/17 17:33 Maalox Plus PO 30 ml Q3H PRN Administration Indigestion Albuterol/Ipratropium 3 ml 09/16/17 21:00 09/17/17 11:04 Duoneb AEROSOL 3 ml RTQID KENN Administration Albuterol/Ipratropium 3 ml 09/17/17 08:53 09/17/17 08:59 Duoneb AEROSOL 3 ml Q4HR PRN Administration Aspirin 325 mg 09/16/17 21:00 09/17/17 09:10 Ecotrin PO 325 mg BID KENN Administration Bisacodyl 10 mg 09/17/17 10:20 09/17/17 10:57 Dulcolax RECTALLY 10 mg DAILY PRN Administration Constipation Diphenhydramine HCl 25 mg 09/16/17 10:37 Benadryl PO Q6H PRN Allergy symptoms Enoxaparin Sodium 70 mg 09/16/17 23:30 09/17/17 09:09 Lovenox SQ 70 mg DAILY KENN Administration Fluticasone Propionate 2 spray 09/17/17 09:00 09/17/17 10:36 Flonase EA NOSTRIL 2 spray DAILY KENN Administration Sodium Chloride 1,000 mls @ 75 mls/hr 09/16/17 22:35 09/17/17 12:54 Normal Saline IV Not Given .[id number] [facility] Ceftriaxone Sodium 1 g/ Sodium 100 mls @ 200 mls/hr 09/17/17 15:00 Chloride IV Q24H [facility] Vancomycin HCl 1,375 mg/ 500 mls @ 250 mls/hr 09/18/17 04:45 Sodium Chloride IV Q18H [facility] Lorazepam 0.25 mg 09/16/17 23:28 09/16/17 23:56 Ativan PO 0.25 mg HS PRN Administration Magnesium Hydroxide 30 ml 09/17/17 10:20 Mom PO DAILY PRN Constipation Melatonin 10 mg 09/16/17 10:38 Melatonin PO HS PRN Sleep Menthol 1 lozenge 09/15/17 10:33 09/15/17 13:19 Ricola Sf MM 1 lozenge PRN PRN Administration Cough Morphine Sulfate 1 - 2 mg 09/15/17 02:11 09/17/17 04:19 Morphine Sulf 2 Mg Inj IVP 2 mg Q2H PRN Administration Pain Omeprazole 20 mg 09/17/17 06:30 09/17/17 06:49 Prilosec PO 20 mg ACB KENN Administration Ondansetron HCl 4 mg 09/15/17 02:11 09/15/17 05:07 Zofran IVP 4 mg Q6H PRN Administration Nausea &/or vomiting Prochlorperazine Edisylate 10 mg 09/15/17 10:33 09/17/17 04:14 Compazine Iv IVP 10 mg Q6H PRN Administration Nausea &/or vomiting Sodium Chloride 10 - 80 ml 09/14/17 21:29 09/14/17 21:35 Iv Flush IVF 10 ml PRN PRN Administration Flushing Discontinued Medications Generic Name Dose Route Start Last Admin Trade Name Freq PRN Reason Stop Dose Admin Albuterol Sulfate 2.5 mg 09/15/17 22:43 09/16/17 17:53 Proventil Neb (0.083%) AEROSOL 2.5 mg Q4H PRN Administration Sodium Chloride 1,000 mls @ 1,000 mls/hr 09/14/17 21:29 09/14/17 22:08 Normal Saline IV 09/14/17 22:28 Infused .Q1H ONE Infusion Sodium Chloride 1,000 mls @ 999.9 mls/hr 09/14/17 22:24 09/14/17 23:00 Normal Saline IV 09/14/17 23:23 Infused .Q1H [facility] Infusion Ceftriaxone Sodium 1 gm/ 100 mls @ 200 mls/hr 09/15/17 00:00 09/15/17 00:32 Sodium Chloride IV 09/15/17 00:29 Infused O ONE Infusion Sodium Chloride 1,000 mls @ 150 mls/hr 09/15/17 00:15 09/15/17 23:00 Normal Saline IV Infused .Q6H40M [facility] Infusion Ceftriaxone Sodium 1 g/ Sodium 100 mls @ 200 mls/hr 09/15/17 12:00 09/16/17 12:00 Chloride IV Infused Q24H [facility] Infusion Sodium Chloride 1,000 mls @ 100 mls/hr 09/15/17 16:15 09/17/17 10:11 Normal Saline IV Not Given .Q10H [facility] Cefepime HCl 1 gm/ Sodium 100 mls @ 200 mls/hr 09/16/17 20:15 09/17/17 10:05 Chloride IV Infused Q6H [facility] In[facility] Vancomycin HCl 1,250 mg/ 250 mls @ 200 mls/hr 09/16/17 20:45 09/17/17 11:32 Sodium Chloride IV Infused Q12H [facility] In[facility] Vancomycin HCl 1 each 09/16/17 20:03 09/16/17 20:30 Pharmacy Consult - Vancomycin 09/16/17 20:04 1 each O ONE Administration - Constitutional no acute distress, well nourished, cooperative - Routine HEENT Exam Head: Present: normocephalic ENT: Present: mucous membranes moist - Routine Neck Exam Absent: JVD, carotid bruit - Routine Chest/Breast/Axilla Exam Chest wall: Absent: tenderness - Routine Respiratory Exam Present: decreased breath sounds. Absent: dyspnea, rales, wheezes - Routine Cardiovascular Exam Present: RRR, no murmur - Routine Abdominal Exam Present: soft, non tender - Routine Extremities Exam Present: edema (trace) - Routine Skin Exam Present: intact, warm, rash - Routine Neurological Exam Present: alert, oriented X3 - Routine Psychiatric Exam Present: normal affect, normal thought process Results 09/17/17 03:44 09/17/17 03:44 Cardiac Enzymes 09/16/17 Range/Units 20:37 AST 27 (14-36) U/L Troponin I 0.141 H D (0-0.12) ng/ml CBC 09/16/17 09/17/17 Range/Units 20:31 03:44 WBC 7.2 7.3 (4.5-11.0) T/MM3 RBC 4.20 4.29 (4.00-5.20) M/MM3 Hgb 12.8 13.2 (12-16) GM/DL Hct 38.6 39.7 (36-46) % Plt Count 133 145 (130-400) T/MM3 Neut # (Auto) 6.0 5.7 (1.8-7.7) T/MM3 Lymph # (Auto) 0.3 L 0.5 L (1-4.8) T/MM3 [place] # (Auto) 0.2 0.2 (0-0.8) T/MM3 Eos # (Auto) 0.5 0.8 H (0-0.5) T/MM3 Baso # (Auto) 0.0 0.0 (0-0.2) T/MM3 Comprehensive Metabolic Panel 09/16/17 09/17/17 Range/Units 20:37 03:44 Sodium 139 141 (134-144) MEQ/L Potassium 3.4 L 3.4 L (3.6-5) MEQ/L Chloride 108 H 106 (98-107) MEQ/L Carbon Dioxide 21 L 24 (22-30) MEQ/L BUN 13.0 11.0 (7-17) MG/DL Creatinine 0.6 L 0.6 L (0.7-1.2) mg/dL Glucose 121 H 101 (65-110) MG/DL Calcium 7.9 L 7.9 L (8.4-10.2) MG/DL Unconjugated Bilirubin 0.00 (0.00-1.1) mg/dL AST 27 (14-36) U/L ALT 58 H (1-35) U/L Alkaline Phosphatase 66 (38-126) U/L Total Protein 5.2 L (6.3-8.2) g/dL Albumin 2.8 L (3.5-5.0) g/dL Intake and Output 09/16/17 09/17/17 09/17/17 22:59 06:59 14:59 Intake Total 350 / 350 100 / 100 350 / 350 Output Total 150 / 150 400 / 400 Balance 200 / 200 100 / 100 -50 / -50 Intake: IV 350 / 350 100 / 100 350 / 350 Cefepime 1 gm In Ns 100 ml @ 100 / 100 100 / 100 100 / 100 200 mls/hr IV Q6H [facility] Rx#: [id number] Vancomycin 1,250 mg In NS 250ml 250 / 250 250 / 250 250 ml @ 200 mls/hr IV Q12H [facility] Rx#:[id number] Output: Urine 150 / 150 400 / 400 Other: Urine Appearance Clear Clear Urine Color Dark Yellow Yellow Stool Color Brown Brown Stool Consistency Soft Soft Formed Size of Bowel Movement Smear Moderate # Bowel Movements 1 - Imaging and Cardiology Imaging & Cardiology Narrative: Date of Exam: 09/17/17 Ordering Provider: Yuan Lara MD Type of Exam(s): XR chest 1V Reason for Exam(s): Dyspnea Indication: Dyspnea PROCEDURE: XR chest 1V: Encounter: Initial Comparison: 09/16/2017 Findings: There is bibasilar pulmonary opacity with obliteration of the left diaphragm suggesting bibasilar atelectasis and/or pleural effusion. There is prominence of the cardiac silhouette which may be accentuated by the AP portable technique. Trachea is midline. No subdiaphragmatic free air. There is moderate overlying EKG lead artifact. Impression: Bibasilar atelectasis and/or pleural effusion, similar to prior exam. 09/17/17 13:57 Assessment and Plan - Assessment and Plan (1) UTI (urinary tract infection) Status: Acute (2) NSTEMI (non-ST elevated myocardial infarction) Status: Acute (3) Hypotension Status: Acute - Assessment and Plan 09/15/17 NSTEMI (non-ST elevated myocardial infarction) Start date: 09/14/17 Current visit: Yes Status: Acute - Likely r/t acute infection - Echo pending - Trop peak at 0.8, no ischemia noted on ECG - No complaints of chest pain Hypotension Start date: 09/14/17 Current visit: Yes Status: Acute - Fluid bolus as needed - Consider pressor support to keep MAP <65 UTI (urinary tract infection) Start date: 09/14/17 Current visit: Yes Status: Acute - ABX per attending Thank you for the consult. Will continue to follow with you 09/17/17 Will plan outpatient stress test when recovers from current illness. Hospital Course Summary Disclaimer: The visit summary below is not to be considered part of the above Progress Note. Hospital Course: 09/15/17 Admit to inpatient secondary to severe sepsis secondary to UTI - anticipate greater than 2 midnights of care needed. Ceftriaxone for urinary coverage - checking urine culture/sensitivities. IVF initiated at 150 cc/hr. Will recheck BMP to assess renal function. BP showing improvement from ED. Will decrease IVF to 100cc/hr. Consult with Dr Brady due to elevated troponin - suspect Type II NSTEMI. Tele secondary to NSTEMI. Zofran and Compazine prn nausea. Clear liquid diet due to decreased oral drive, advance as able. SCD for DVT prevention. Monitor lab. Full code as per patient request. Care to return to Dr Farah at time of discharge from [facility] [place]. 09/16/17 Urine culture growing E coli - will continue ceftriaxone and continue to check C /S. Continue with IVF of NS at 100c/hr as oral drive decreased. Creatinine improving with IVF - YURIY resolving. Advance diet at able - still with decreased oral drive. Cardiology ordered ECHO due to NSTEMI - results pending. As medically improving, will transfer to medical floor on tele for continuation of care. 09/17/17 Urine culture growing E coli - will continue ceftriaxone as showing sensitivity. Cefepime started yesterday evening as pt had temp elevation. Do not feel this will add more than. CT ab/pelvis showing GB sludge - will check US GB. Decrease with IVF of NS to 75cc/hr. Advance diet at able - still with decreased oral drive. PT/OT to help improve functional status. <Fernando Brady - Last Filed: 09/25/17 11:48> Exam Vital signs: Temperature 97.8 F 09/21/17 12:00 Pulse Rate 80 09/21/17 12:00 Respiratory Rate 12 09/21/17 12:00 Blood Pressure 148/83 H 09/21/17 12:00 Pulse Oximetry 94 09/21/17 12:00 Inpatient Medications: Discontinued Medications Generic Name Dose Route Start Last Admin Trade Name Freq PRN Reason Stop Dose Admin Acetaminophen 325 - 650 mg 09/15/17 07:43 09/16/17 08:39 Tylenol PO 650 mg Q5H PRN Administration Discomfort Acetaminophen 650 mg 09/16/17 13:00 09/21/17 09:09 Tylenol PO 650 mg QID KENN Administration Acetaminophen 650 mg 09/18/17 10:13 Tylenol PO Q5H PRN Discomfort Hydrocodone Bitart/Acetaminophen 1 tab 09/15/17 02:11 09/18/17 21:01 Garber 5/325 PO 1 tab Q6H PRN Administration Pain Al Hydroxide/Mg Hydroxide 30 ml 09/15/17 13:27 09/16/17 17:33 Maalox Plus PO 30 ml Q3H PRN Administration Indigestion Albuterol Sulfate 2.5 mg 09/15/17 22:43 09/16/17 17:53 Proventil Neb (0.083%) AEROSOL 2.5 mg Q4H PRN Administration Albuterol/Ipratropium 3 ml 09/16/17 21:00 09/21/17 10:41 Duoneb AEROSOL 3 ml RTQID KENN Administration Albuterol/Ipratropium 3 ml 09/17/17 08:53 09/21/17 04:02 Duoneb AEROSOL 3 ml Q4HR PRN Administration Amiodarone HCl 200 mg 09/20/17 18:15 09/21/17 09:10 Pacerone PO 200 mg DAILY KENN Administration Aspirin 325 mg 09/16/17 21:00 09/21/17 09:10 Ecotrin PO 325 mg BID KENN Administration Bisacodyl 10 mg 09/17/17 10:20 09/17/17 10:57 Dulcolax RECTALLY 10 mg DAILY PRN Administration Constipation Diltiazem HCl 20 mg 09/19/17 10:57 09/19/17 11:36 Cardizem 25 Mg Inj IVP 09/19/17 10:58 20 mg O ONE Administration Diphenhydramine HCl 25 mg 09/16/17 10:37 Benadryl PO Q6H PRN Allergy symptoms Enoxaparin Sodium 70 mg 09/16/17 23:30 09/18/17 11:16 Lovenox SQ 70 mg DAILY KENN Administration Enoxaparin Sodium 80 mg 09/19/17 09:00 09/20/17 08:01 Lovenox SQ 80 mg BID KENN Administration Fluticasone Propionate 2 spray 09/17/17 09:00 09/21/17 09:10 Flonase EA NOSTRIL 2 spray DAILY KENN Administration Furosemide 40 mg 09/20/17 18:15 09/21/17 09:10 Lasix 40 Mg Tab PO 40 mg DAILY KENN Administration Sodium Chloride 1,000 mls @ 1,000 mls/hr 09/14/17 21:29 09/14/17 22:08 Normal Saline IV 09/14/17 22:28 Infused .Q1H ONE Infusion Sodium Chloride 1,000 mls @ 999.9 mls/hr 09/14/17 22:24 09/14/17 23:00 Normal Saline IV 09/14/17 23:23 Infused .Q1H ONE Infusion Ceftriaxone Sodium 1 gm/ 100 mls @ 200 mls/hr 09/15/17 00:00 09/15/17 00:32 Sodium Chloride IV 09/15/17 00:29 Infused O ONE Infusion Sodium Chloride 1,000 mls @ 150 mls/hr 09/15/17 00:15 09/15/17 23:00 Normal Saline IV Infused .Q6H40M [facility] Infusion Ceftriaxone Sodium 1 g/ Sodium 100 mls @ 200 mls/hr 09/15/17 12:00 09/16/17 12:00 Chloride IV Infused Q24H [facility] Infusion Sodium Chloride 1,000 mls @ 100 mls/hr 09/15/17 16:15 09/17/17 10:11 Normal Saline IV Not Given .Q10H [facility] Cefepime HCl 1 gm/ Sodium 100 mls @ 200 mls/hr 09/16/17 20:15 09/17/17 10:05 Chloride IV Infused Q6H [facility] In[facility] Vancomycin HCl 1,250 mg/ 250 mls @ 200 mls/hr 09/16/17 20:45 09/17/17 11:32 Sodium Chloride IV Infused Q12H [facility] Infusion Sodium Chloride 1,000 mls @ 75 mls/hr 09/16/17 22:35 09/18/17 13:35 Normal Saline IV Not Given .[id number] [facility] Ceftriaxone Sodium 1 g/ Sodium 100 mls @ 200 mls/hr 09/17/17 15:00 09/20/17 16:00 Chloride IV Infused Q24H [facility] In[facility] Vancomycin HCl 1,375 mg/ 500 mls @ 250 mls/hr 09/18/17 04:45 09/18/17 06:46 Sodium Chloride IV Infused Q18H [facility] Potassium Chloride 10 meq in 100 mls @ 100 mls/hr 09/18/17 06:21 09/18/17 09: 06 Potassium Chloride Premix IV 09/18/17 07:20 Infused O ONE Infusion Potassium Chloride/Sodium Chloride 1,000 mls @ 75 mls/hr 09/18/17 06:30 09/18 10:56 1/2 Ns With Kcl 20meq Premix IV Infused .[id number] [facility] Infusion Potassium Chloride/Sodium Chloride 1,000 mls @ 50 mls/hr 09/18/17 11:00 09/20 12:07 1/2 Ns With Kcl 20meq Premix IV Infused .Q20H [facility] In[facility] Potassium Chloride 10 meq in 100 mls @ 75 mls/hr 09/19/17 09:04 Potassium Chloride Premix IV 09/19/17 10:23 O ONE Potassium Chloride 10 meq in 100 mls @ 100 mls/hr 09/19/17 09:52 Potassium Chloride Premix IV 09/19/17 12:51 Q1H [facility] Lidocaine HCl 10 mg/ Potassium 100 mls @ 100 mls/hr 09/19/17 10:00 09/19/17 16:03 Chloride 10 meq/ Sodium IV 09/19/17 14:13 Infused Chloride .Q1H [facility] In[facility] Amiodarone HCl 150 mg/ Sodium 103 mls @ 618 mls/hr 09/19/17 10:55 09/19/17 12 :15 Chloride IV 09/19/17 11:04 Infused O ONE Infusion Amiodarone HCl 450 mg/ Sodium 250 mls @ 33.33 mls/hr 09/19/17 11:00 09/19/17 19:53 Chloride IV 09/19/17 17:00 Infused .Q7H31M [facility] Infusion 1 MG/MIN Amiodarone HCl 900 mg/ Sodium 500 mls @ 16.66 mls/hr 09/19/17 11:00 09/20/17 18:19 Chloride IV Infused .Q24H [facility] Infusion 0.5 MG/MIN Amiodarone HCl 150 mg/ Sodium 103 mls @ 618 mls/hr 09/19/17 14:21 09/19/17 15 :53 Chloride IV 09/19/17 14:30 Infused O ONE Infusion Lorazepam 0.25 mg 09/16/17 23:28 09/19/17 21:57 Ativan PO 0.25 mg HS PRN Administration Magnesium Hydroxide 30 ml 09/17/17 10:20 09/21/17 11:24 Mom PO 30 ml DAILY PRN Administration Constipation Magnesium Oxide 400 mg 09/20/17 17:30 09/20/17 17:42 Magox PO 09/20/17 17:31 400 mg O ONE Administration Melatonin 10 mg 09/16/17 10:38 09/19/17 21:56 Melatonin PO 10 mg HS PRN Administration Sleep Menthol 1 lozenge 09/15/17 10:33 09/15/17 13:19 Ricola Sf MM 1 lozenge PRN PRN Administration Cough Metoprolol Tartrate 25 mg 09/19/17 17:30 09/21/17 09:09 Lopressor PO 25 mg BIDWM KENN Administration Morphine Sulfate 1 - 2 mg 09/15/17 02:11 09/17/17 04:19 Morphine Sulf 2 Mg Inj IVP 2 mg Q2H PRN Administration Pain Omeprazole 20 mg 09/17/17 06:30 09/18/17 08:07 Prilosec PO 20 mg ACB KENN Administration Ondansetron HCl 4 mg 09/15/17 02:11 09/15/17 05:07 Zofran IVP 4 mg Q6H PRN Administration Nausea &/or vomiting Pantoprazole Sodium 40 mg 09/18/17 21:00 09/21/17 09:11 Protonix Iv IVP 40 mg BID KENN Administration Pantoprazole Sodium 40 mg 09/21/17 17:00 Protonix Tab PO ACBID KENN Potassium Chloride 20 meq 09/19/17 08:00 K-Dur 20 Meq Tablet PO BIDWM KENN Potassium Chloride 20 meq 09/19/17 08:45 09/19/17 10:12 K-Dur 20 Meq Tablet PO 09/19/17 08:46 20 meq O ONE Administration Potassium Chloride 40 meq 09/19/17 08:51 09/19/17 09:00 K-Dur 20 Meq Tablet PO 40 meq BIDWM KENN Administration Potassium Chloride 40 meq 09/19/17 21:00 09/21/17 09:11 K-Dur 20 Meq Tablet PO 40 meq BID KENN Administration Prochlorperazine Edisylate 10 mg 09/15/17 10:33 09/20/17 01:18 Compazine Iv IVP 10 mg Q6H PRN Administration Nausea &/or vomiting Rivaroxaban 20 mg 09/20/17 17:30 09/20/17 17:42 Xarelto PO 20 mg WS KENN Administration Senna/Docusate Sodium 2 tab 09/21/17 21:00 Senna Plus Tablet PO BID KENN Sodium Chloride 10 - 80 ml 09/14/17 21:29 09/21/17 09:12 Iv Flush IVF 20 ml PRN PRN Administration Flushing Vancomycin HCl 1 each 09/16/17 20:03 09/16/17 20:30 Pharmacy Consult - Vancomycin MC 09/16/17 20:04 1 each O ONE Administration Results 09/21/17 04:31 09/21/17 04:31 Assessment and Plan - Assessment and Plan (1) UTI (urinary tract infection) Status: Resolved (2) NSTEMI (non-ST elevated myocardial infarction) Status: Resolved (3) Hypotension Status: Acute - Attestation Attestation Narrative: 09/25/17 11:48 Recommendation After examining the patient I agree with the above assessment. I am involved in the formulation of the patient's plan of care. Hospital Course Summary Disclaimer: The visit summary below is not to be considered part of the above Progress Note.
[2017-09-17] MEDS: CEFTRIAXONE 1 G in NS 100 ML IV SCH (15:44)
[2017-09-17] MEDS: HYDROCODONE/APAP 5mg/325mg TABLET PO PRN (23:16)
[2017-09-18] MEDS: LORazepam 0.5 MG TABLET PO PRN (00:23)
[2017-09-18] MEDS: MELATONIN 5 MG TABLET PO PRN (00:25)
[2017-09-18] MEDS: ALBUTEROL/IPRATROPIUM 2.5mg-0.5mg/3ml NEB AEROSOL PRN (00:29)
[2017-09-18] MEDS ORDERED: NS IV SCH (04:45)
[2017-09-18] MEDS ORDERED: VANCOMYCIN IV SCH (04:45)
[2017-09-18] MEDS ORDERED: POTASSIUM CHLORIDE PREMIX 10 MEQ/100 ML BAG IV ONE (06:21)
[2017-09-18] MEDS ORDERED: 1/2 NS with KCL 20mEq 1,000 ML IV SCH (06:30)
[2017-09-18] MEDS: ALBUTEROL/IPRATROPIUM 2.5mg-0.5mg/3ml NEB AEROSOL SCH ×4 (06:34→19:09)
[2017-09-18] MEDS: OMEPRAZOLE 20 MG CAPSULE PO SCH (08:07)
--- NOTE | 2017-09-18 09:43 | Ultrasound Report ---
Indication: Gallbladder sludge, ? Inflammation of GB PROCEDURE: US gall bladder: Encounter: Initial Comparison: CT abdomen dated September 16, 2017 Technique: Grayscale and color Doppler sonographic imaging of the right upper quadrant of the abdomen was performed. Findings: Hepatic parenchyma is homogeneous without evidence for focal mass. The gallbladder shows echogenic sludge without shadowing stones. Normal wall thickness. Sonographic Cox sign was negative. Both the intra and extrahepatic biliary system are of normal caliber with the common duct measuring 3 mm in dimension. Visualized portions of the head and body of the pancreas are unremarkable. The right kidney is present without collecting system dilatation. The right kidney measures 11.1 cm in length. Small amount of ascites. Impression: Gallbladder sludge without findings of cholelithiasis or acute cholecystitis. .
[2017-09-18] MEDS: ASPIRIN *EC* 325 MG TABLET PO SCH ×2 (10:04→21:02)
[2017-09-18] MEDS: HYDROCODONE/APAP 5mg/325mg TABLET PO PRN ×2 (10:05→21:01)
[2017-09-18] MEDS: ACETAMINOPHEN 325 MG TABLET PO SCH ×5 (10:06→20:00)
[2017-09-18] MEDS ORDERED: ACETAMINOPHEN 325 MG TABLET PO PRN (10:13)
--- NOTE | 2017-09-18 11:00 | Cardiology Progress Note ---
<Gabi Dawn - Last Filed: 09/19/17 10:23> Subjective Principal diagnosis: weakness Interval history: Daniela is seen in follow up for UTI, NSTEMI and hypotension. She is alert in her bed, in no acute distress. She has a poor appetitie but denies chest pain, dyspnea, palpitations or complaints. Exam Vital signs: Temperature 98.2 F 09/18/17 08:00 Pulse Rate 92 09/18/17 08:00 Respiratory Rate 22 09/18/17 08:00 Blood Pressure 136/83 09/18/17 08:00 Pulse Oximetry 94 09/18/17 08:00 Inpatient Medications: Generic Name Dose Route Start Last Admin Trade Name Freq PRN Reason Stop Dose Admin Acetaminophen 650 mg 09/16/17 13:00 09/18/17 10:07 Tylenol PO Not Given QID KENN Acetaminophen 650 mg 09/18/17 10:13 Tylenol PO Q5H PRN Discomfort Hydrocodone Bitart/Acetaminophen 1 tab 09/15/17 02:11 09/18/17 10:05 Bullard 5/325 PO 1 tab Q6H PRN Administration Pain Al Hydroxide/Mg Hydroxide 30 ml 09/15/17 13:27 09/16/17 17:33 Maalox Plus PO 30 ml Q3H PRN Administration Indigestion Albuterol/Ipratropium 3 ml 09/16/17 21:00 09/18/17 06:34 Duoneb AEROSOL 3 ml RTQID KENN Administration Albuterol/Ipratropium 3 ml 09/17/17 08:53 09/18/17 00:29 Duoneb AEROSOL 3 ml Q4HR PRN Administration Aspirin 325 mg 09/16/17 21:00 09/18/17 10:04 Ecotrin PO 325 mg BID KENN Administration Bisacodyl 10 mg 09/17/17 10:20 09/17/17 10:57 Dulcolax RECTALLY 10 mg DAILY PRN Administration Constipation Diphenhydramine HCl 25 mg 09/16/17 10:37 Benadryl PO Q6H PRN Allergy symptoms Enoxaparin Sodium 70 mg 09/16/17 23:30 09/17/17 09:09 Lovenox SQ 70 mg DAILY KENN Administration Fluticasone Propionate 2 spray 09/17/17 09:00 09/17/17 10:36 Flonase EA NOSTRIL 2 spray DAILY KENN Administration Ceftriaxone Sodium 1 g/ Sodium 100 mls @ 200 mls/hr 09/17/17 15:00 09/17/17 16:18 Chloride IV Infused Q24H KENN Infusion Vancomycin HCl 1,375 mg/ 500 mls @ 250 mls/hr 09/18/17 04:45 09/18/17 06:46 Sodium Chloride IV Infused Q18H KENN Infusion Potassium Chloride/Sodium Chloride 1,000 mls @ 75 mls/hr 09/18/17 06:30 09/18 06:46 1/2 Ns With Kcl 20meq Premix IV 75 mls/hr .[id number] KENN Infusion Lorazepam 0.25 mg 09/16/17 23:28 09/18/17 00:23 Ativan PO 0.25 mg HS PRN Administration Magnesium Hydroxide 30 ml 09/17/17 10:20 Mom PO DAILY PRN Constipation Melatonin 10 mg 09/16/17 10:38 09/18/17 00:25 Melatonin PO 10 mg HS PRN Administration Sleep Menthol 1 lozenge 09/15/17 10:33 09/15/17 13:19 Ricola Sf MM 1 lozenge PRN PRN Administration Cough Morphine Sulfate 1 - 2 mg 09/15/17 02:11 09/17/17 04:19 Morphine Sulf 2 Mg Inj IVP 2 mg Q2H PRN Administration Pain Omeprazole 20 mg 09/17/17 06:30 09/18/17 08:07 Prilosec PO 20 mg ACB KENN Administration Ondansetron HCl 4 mg 09/15/17 02:11 09/15/17 05:07 Zofran IVP 4 mg Q6H PRN Administration Nausea &/or vomiting Prochlorperazine Edisylate 10 mg 09/15/17 10:33 09/17/17 19:44 Compazine Iv IVP 10 mg Q6H PRN Administration Nausea &/or vomiting Sodium Chloride 10 - 80 ml 09/14/17 21:29 09/14/17 21:35 Iv Flush IVF 10 ml PRN PRN Administration Flushing Discontinued Medications Generic Name Dose Route Start Last Admin Trade Name Freq PRN Reason Stop Dose Admin Acetaminophen 325 - 650 mg 09/15/17 07:43 09/16/17 08:39 Tylenol PO 650 mg Q5H PRN Administration Discomfort Albuterol Sulfate 2.5 mg 09/15/17 22:43 09/16/17 17:53 Proventil Neb (0.083%) AEROSOL 2.5 mg Q4H PRN Administration Sodium Chloride 1,000 mls @ 1,000 mls/hr 09/14/17 21:29 09/14/17 22:08 Normal Saline IV 09/14/17 22:28 Infused .Q1H ONE Infusion Sodium Chloride 1,000 mls @ 999.9 mls/hr 09/14/17 22:24 09/14/17 23:00 Normal Saline IV 09/14/17 23:23 Infused .Q1H ONE Infusion Ceftriaxone Sodium 1 gm/ 100 mls @ 200 mls/hr 09/15/17 00:00 09/15/17 00:32 Sodium Chloride IV 09/15/17 00:29 Infused O ONE Infusion Sodium Chloride 1,000 mls @ 150 mls/hr 09/15/17 00:15 09/15/17 23:00 Normal Saline IV Infused .Q6H40M KENN Infusion Ceftriaxone Sodium 1 g/ Sodium 100 mls @ 200 mls/hr 09/15/17 12:00 09/16/17 12:00 Chloride IV Infused Q24H KENN Infusion Sodium Chloride 1,000 mls @ 100 mls/hr 09/15/17 16:15 09/17/17 10:11 Normal Saline IV Not Given .Q10H KENN Cefepime HCl 1 gm/ Sodium 100 mls @ 200 mls/hr 09/16/17 20:15 09/17/17 10:05 Chloride IV Infused Q6H KENN Infusion Vancomycin HCl 1,250 mg/ 250 mls @ 200 mls/hr 09/16/17 20:45 09/17/17 11:32 Sodium Chloride IV Infused Q12H KENN Infusion Sodium Chloride 1,000 mls @ 75 mls/hr 09/16/17 22:35 09/18/17 04:43 Normal Saline IV 0 mls/hr .[id number] KENN Infusion Potassium Chloride 10 meq in 100 mls @ 100 mls/hr 09/18/17 06:21 09/18/17 08: 06 Potassium Chloride Premix IV 09/18/17 07:20 100 mls/hr O ONE Administration Vancomycin HCl 1 each 09/16/17 20:03 09/16/17 20:30 Pharmacy Consult - Vancomycin 09/16/17 20:04 1 each O ONE Administration - Constitutional no acute distress, well nourished, cooperative - Routine HEENT Exam Head: Present: normocephalic ENT: Present: mucous membranes moist - Routine Neck Exam Absent: JVD, carotid bruit - Routine Chest/Breast/Axilla Exam Chest wall: Absent: tenderness - Routine Respiratory Exam Present: decreased breath sounds, CTA bilaterally. Absent: dyspnea - Routine Cardiovascular Exam Present: RRR, no murmur - Routine Abdominal Exam Present: soft, non tender - Routine Extremities Exam Present: no edema - Routine Skin Exam Present: intact, dry, warm - Routine Neurological Exam Present: alert - Routine Psychiatric Exam Present: normal affect Results 09/19/17 04:42 09/19/17 04:42 Cardiac Enzymes 09/18/17 Range/Units 04:42 AST 43 H D (14-36) U/L CBC 09/18/17 Range/Units 04:42 WBC 6.8 (4.5-11.0) T/MM3 RBC 4.03 (4.00-5.20) M/MM3 Hgb 12.3 (12-16) GM/DL Hct 36.5 (36-46) % Plt Count 173 (130-400) T/MM3 Neut # (Auto) 5.4 (1.8-7.7) T/MM3 Lymph # (Auto) 0.4 L (1-4.8) T/MM3 [place] # (Auto) 0.3 (0-0.8) T/MM3 Eos # (Auto) 0.7 H (0-0.5) T/MM3 Baso # (Auto) 0.0 (0-0.2) T/MM3 Comprehensive Metabolic Panel 09/18/17 Range/Units 04:42 Sodium 143 (134-144) MEQ/L Potassium 2.8 L* (3.6-5) MEQ/L Chloride 109 H (98-107) MEQ/L Carbon Dioxide 25 (22-30) MEQ/L BUN 8.0 (7-17) MG/DL Creatinine 0.5 L (0.7-1.2) mg/dL Glucose 118 H (65-110) MG/DL Calcium 7.8 L (8.4-10.2) MG/DL AST 43 H D (14-36) U/L ALT 58 H (1-35) U/L Alkaline Phosphatase 61 (38-126) U/L Total Protein 5.0 L (6.3-8.2) g/dL Albumin 2.6 L (3.5-5.0) g/dL Intake and Output 09/17/17 09/18/17 09/18/17 22:59 06:59 14:59 Intake Total 650 / 650 1473.750 / 1473.750 Output Total 1250 / 1250 Balance -600 / -600 1473.750 / 1473.750 Intake: IV 100 / 100 1473.750 / 1473.750 1/2 NS with KCL 20mEq 1,000 ml 0 / 0 @ 75 mls/hr IV .[id number] KENN Rx# :[id number] Ceftriaxone 1 g In Ns 100 ml @ 100 / 100 200 mls/hr IV Q24H KENN Rx#: [id number] Ns 1,000 ml @ 75 mls/hr IV . 973.75 / 973.75 [id number] KENN Rx#:[id number] Vancomycin 1,375 mg In NS 500ml 500.000 / 500.000 500 ml @ 250 mls/hr IV Q18H KENN Rx#:[id number] Oral 550 / 550 Output: Urine 1250 / 1250 Other: Urine Appearance Clear Urine Color Yellow Urine Odor Normal Stool Color Brown Stool Consistency Soft Loose Size of Bowel Movement Small # Bowel Movements 1 - Imaging and Cardiology Imaging & Cardiology Narrative: Date of Exam: 09/18/17 Ordering Provider: Yuan Lara MD Type of Exam(s): US gall bladder Reason for Exam(s): Gallbladder sludge, ? inflammation of GB Indication: Gallbladder sludge, ? Inflammation of GB PROCEDURE: US gall bladder: Encounter: Initial Comparison: CT abdomen dated September 16, 2017 Technique: Grayscale and color Doppler sonographic imaging of the right upper quadrant of the abdomen was performed. Findings: Hepatic parenchyma is homogeneous without evidence for focal mass. The gallbladder shows echogenic sludge without shadowing stones. Normal wall thickness. Sonographic Cox sign was negative. Both the intra and extrahepatic biliary system are of normal caliber with the common duct measuring 3 mm in dimension. Visualized portions of the head and body of the pancreas are unremarkable. The right kidney is present without collecting system dilatation. The right kidney measures 11.1 cm in length. Small amount of ascites. Impression: Gallbladder sludge without findings of cholelithiasis or acute cholecystitis. 09/18/17 10:58 Assessment and Plan - Assessment and Plan (1) UTI (urinary tract infection) Status: Acute (2) NSTEMI (non-ST elevated myocardial infarction) Status: Acute (3) Hypotension Status: Acute - Assessment and Plan 09/15/17 NSTEMI (non-ST elevated myocardial infarction) Start date: 09/14/17 Current visit: Yes Status: Acute - Likely r/t acute infection - Echo pending - Trop peak at 0.8, no ischemia noted on ECG - No complaints of chest pain Hypotension Start date: 09/14/17 Current visit: Yes Status: Acute - Fluid bolus as needed - Consider pressor support to keep MAP <65 UTI (urinary tract infection) Start date: 09/14/17 Current visit: Yes Status: Acute - ABX per attending Thank you for the consult. Will continue to follow with you 09/17/17 Will plan outpatient stress test when recovers from current illness. - continue to monitor telemetry 09/18/17 K+ 2.8, replaced per hospitalist - Monitor renal and electrolytes - Echo pending Hospital Course Summary Disclaimer: The visit summary below is not to be considered part of the above Progress Note. Hospital Course: 09/15/17 Admit to inpatient secondary to severe sepsis secondary to UTI - anticipate greater than 2 midnights of care needed. Ceftriaxone for urinary coverage - checking urine culture/sensitivities. IVF initiated at 150 cc/hr. Will recheck BMP to assess renal function. BP showing improvement from ED. Will decrease IVF to 100cc/hr. Consult with Dr Brady due to elevated troponin - suspect Type II NSTEMI. Tele secondary to NSTEMI. Zofran and Compazine prn nausea. Clear liquid diet due to decreased oral drive, advance as able. SCD for DVT prevention. Monitor lab. Full code as per patient request. Care to return to Dr Farah at time of discharge from [facility] [place]. 09/16/17 Urine culture growing E coli - will continue ceftriaxone and continue to check C /S. Continue with IVF of NS at 100c/hr as oral drive decreased. Creatinine improving with IVF - YURIY resolving. Advance diet at able - still with decreased oral drive. Cardiology ordered ECHO due to NSTEMI - results pending. As medically improving, will transfer to medical floor on tele for continuation of care. 09/17/17 Urine culture growing E coli - will continue ceftriaxone as showing sensitivity. Cefepime started yesterday evening as pt had temp elevation. Do not feel this will add more than. CT ab/pelvis showing GB sludge - will check US GB. Decrease with IVF of NS to 75cc/hr. Advance diet at able - still with decreased oral drive. PT/OT to help improve functional status. <Fernando Brady - Last Filed: 09/25/17 11:53> Exam Vital signs: Temperature 97.8 F 09/21/17 12:00 Pulse Rate 80 09/21/17 12:00 Respiratory Rate 12 09/21/17 12:00 Blood Pressure 148/83 H 09/21/17 12:00 Pulse Oximetry 94 09/21/17 12:00 Inpatient Medications: Discontinued Medications Generic Name Dose Route Start Last Admin Trade Name Freq PRN Reason Stop Dose Admin Acetaminophen 325 - 650 mg 09/15/17 07:43 09/16/17 08:39 Tylenol PO 650 mg Q5H PRN Administration Discomfort Acetaminophen 650 mg 09/16/17 13:00 09/21/17 09:09 Tylenol PO 650 mg QID KENN Administration Acetaminophen 650 mg 09/18/17 10:13 Tylenol PO Q5H PRN Discomfort Hydrocodone Bitart/Acetaminophen 1 tab 09/15/17 02:11 09/18/17 21:01 Bullard 5/325 PO 1 tab Q6H PRN Administration Pain Al Hydroxide/Mg Hydroxide 30 ml 09/15/17 13:27 09/16/17 17:33 Maalox Plus PO 30 ml Q3H PRN Administration Indigestion Albuterol Sulfate 2.5 mg 09/15/17 22:43 09/16/17 17:53 Proventil Neb (0.083%) AEROSOL 2.5 mg Q4H PRN Administration Albuterol/Ipratropium 3 ml 09/16/17 21:00 09/21/17 10:41 Duoneb AEROSOL 3 ml RTQID KENN Administration Albuterol/Ipratropium 3 ml 09/17/17 08:53 09/21/17 04:02 Duoneb AEROSOL 3 ml Q4HR PRN Administration Amiodarone HCl 200 mg 09/20/17 18:15 09/21/17 09:10 Pacerone PO 200 mg DAILY KENN Administration Aspirin 325 mg 09/16/17 21:00 09/21/17 09:10 Ecotrin PO 325 mg BID KENN Administration Bisacodyl 10 mg 09/17/17 10:20 09/17/17 10:57 Dulcolax RECTALLY 10 mg DAILY PRN Administration Constipation Diltiazem HCl 20 mg 09/19/17 10:57 09/19/17 11:36 Cardizem 25 Mg Inj IVP 09/19/17 10:58 20 mg O ONE Administration Diphenhydramine HCl 25 mg 09/16/17 10:37 Benadryl PO Q6H PRN Allergy symptoms Enoxaparin Sodium 70 mg 09/16/17 23:30 09/18/17 11:16 Lovenox SQ 70 mg DAILY KENN Administration Enoxaparin Sodium 80 mg 09/19/17 09:00 09/20/17 08:01 Lovenox SQ 80 mg BID KENN Administration Fluticasone Propionate 2 spray 09/17/17 09:00 09/21/17 09:10 Flonase EA NOSTRIL 2 spray DAILY KENN Administration Furosemide 40 mg 09/20/17 18:15 09/21/17 09:10 Lasix 40 Mg Tab PO 40 mg DAILY KENN Administration Sodium Chloride 1,000 mls @ 1,000 mls/hr 09/14/17 21:29 09/14/17 22:08 Normal Saline IV 09/14/17 22:28 Infused .Q1H ONE Infusion Sodium Chloride 1,000 mls @ 999.9 mls/hr 09/14/17 22:24 09/14/17 23:00 Normal Saline IV 09/14/17 23:23 Infused .Q1H ONE Infusion Ceftriaxone Sodium 1 gm/ 100 mls @ 200 mls/hr 09/15/17 00:00 09/15/17 00:32 Sodium Chloride IV 09/15/17 00:29 Infused O ONE Infusion Sodium Chloride 1,000 mls @ 150 mls/hr 09/15/17 00:15 09/15/17 23:00 Normal Saline IV Infused .Q6H40M KENN Infusion Ceftriaxone Sodium 1 g/ Sodium 100 mls @ 200 mls/hr 09/15/17 12:00 09/16/17 12:00 Chloride IV Infused Q24H KENN Infusion Sodium Chloride 1,000 mls @ 100 mls/hr 09/15/17 16:15 09/17/17 10:11 Normal Saline IV Not Given .Q10H KENN Cefepime HCl 1 gm/ Sodium 100 mls @ 200 mls/hr 09/16/17 20:15 09/17/17 10:05 Chloride IV Infused Q6H KENN Infusion Vancomycin HCl 1,250 mg/ 250 mls @ 200 mls/hr 09/16/17 20:45 09/17/17 11:32 Sodium Chloride IV Infused Q12H KENN Infusion Sodium Chloride 1,000 mls @ 75 mls/hr 09/16/17 22:35 09/18/17 13:35 Normal Saline IV Not Given .[id number] KENN Ceftriaxone Sodium 1 g/ Sodium 100 mls @ 200 mls/hr 09/17/17 15:00 09/20/17 16:00 Chloride IV Infused Q24H KENN Infusion Vancomycin HCl 1,375 mg/ 500 mls @ 250 mls/hr 09/18/17 04:45 09/18/17 06:46 Sodium Chloride IV Infused Q18H KENN Infusion Potassium Chloride 10 meq in 100 mls @ 100 mls/hr 09/18/17 06:21 09/18/17 09: 06 Potassium Chloride Premix IV 09/18/17 07:20 Infused O ONE Infusion Potassium Chloride/Sodium Chloride 1,000 mls @ 75 mls/hr 09/18/17 06:30 09/18 10:56 1/2 Ns With Kcl 20meq Premix IV Infused .[id number] KENN Infusion Potassium Chloride/Sodium Chloride 1,000 mls @ 50 mls/hr 09/18/17 11:00 09/20 12:07 1/2 Ns With Kcl 20meq Premix IV Infused .Q20H KENN Infusion Potassium Chloride 10 meq in 100 mls @ 75 mls/hr 09/19/17 09:04 Potassium Chloride Premix IV 09/19/17 10:23 O ONE Potassium Chloride 10 meq in 100 mls @ 100 mls/hr 09/19/17 09:52 Potassium Chloride Premix IV 09/19/17 12:51 Q1H KENN Lidocaine HCl 10 mg/ Potassium 100 mls @ 100 mls/hr 09/19/17 10:00 09/19/17 16:03 Chloride 10 meq/ Sodium IV 09/19/17 14:13 Infused Chloride .Q1H KENN Infusion Amiodarone HCl 150 mg/ Sodium 103 mls @ 618 mls/hr 09/19/17 10:55 09/19/17 12 :15 Chloride IV 09/19/17 11:04 Infused O ONE Infusion Amiodarone HCl 450 mg/ Sodium 250 mls @ 33.33 mls/hr 09/19/17 11:00 09/19/17 19:53 Chloride IV 09/19/17 17:00 Infused .Q7H31M KENN Infusion 1 MG/MIN Amiodarone HCl 900 mg/ Sodium 500 mls @ 16.66 mls/hr 09/19/17 11:00 09/20/17 18:19 Chloride IV Infused .Q24H KENN Infusion 0.5 MG/MIN Amiodarone HCl 150 mg/ Sodium 103 mls @ 618 mls/hr 09/19/17 14:21 09/19/17 15 :53 Chloride IV 09/19/17 14:30 Infused O ONE Infusion Lorazepam 0.25 mg 09/16/17 23:28 09/19/17 21:57 Ativan PO 0.25 mg HS PRN Administration Magnesium Hydroxide 30 ml 09/17/17 10:20 09/21/17 11:24 Mom PO 30 ml DAILY PRN Administration Constipation Magnesium Oxide 400 mg 09/20/17 17:30 09/20/17 17:42 Magox PO 09/20/17 17:31 400 mg O ONE Administration Melatonin 10 mg 09/16/17 10:38 09/19/17 21:56 Melatonin PO 10 mg HS PRN Administration Sleep Menthol 1 lozenge 09/15/17 10:33 09/15/17 13:19 Ricola Sf MM 1 lozenge PRN PRN Administration Cough Metoprolol Tartrate 25 mg 09/19/17 17:30 09/21/17 09:09 Lopressor PO 25 mg BIDWM KENN Administration Morphine Sulfate 1 - 2 mg 09/15/17 02:11 09/17/17 04:19 Morphine Sulf 2 Mg Inj IVP 2 mg Q2H PRN Administration Pain Omeprazole 20 mg 09/17/17 06:30 09/18/17 08:07 Prilosec PO 20 mg ACB KENN Administration Ondansetron HCl 4 mg 09/15/17 02:11 09/15/17 05:07 Zofran IVP 4 mg Q6H PRN Administration Nausea &/or vomiting Pantoprazole Sodium 40 mg 09/18/17 21:00 09/21/17 09:11 Protonix Iv IVP 40 mg BID KENN Administration Pantoprazole Sodium 40 mg 09/21/17 17:00 Protonix Tab PO ACBID KENN Potassium Chloride 20 meq 09/19/17 08:00 K-Dur 20 Meq Tablet PO BIDWM KENN Potassium Chloride 20 meq 09/19/17 08:45 09/19/17 10:12 K-Dur 20 Meq Tablet PO 09/19/17 08:46 20 meq O ONE Administration Potassium Chloride 40 meq 09/19/17 08:51 09/19/17 09:00 K-Dur 20 Meq Tablet PO 40 meq BIDWM KENN Administration Potassium Chloride 40 meq 09/19/17 21:00 09/21/17 09:11 K-Dur 20 Meq Tablet PO 40 meq BID KENN Administration Prochlorperazine Edisylate 10 mg 09/15/17 10:33 09/20/17 01:18 Compazine Iv IVP 10 mg Q6H PRN Administration Nausea &/or vomiting Rivaroxaban 20 mg 09/20/17 17:30 09/20/17 17:42 Xarelto PO 20 mg WS KENN Administration Senna/Docusate Sodium 2 tab 09/21/17 21:00 Senna Plus Tablet PO BID KENN Sodium Chloride 10 - 80 ml 09/14/17 21:29 09/21/17 09:12 Iv Flush IVF 20 ml PRN PRN Administration Flushing Vancomycin HCl 1 each 09/16/17 20:03 09/16/17 20:30 Pharmacy Consult - Vancomycin MC 09/16/17 20:04 1 each O ONE Administration Results 09/21/17 04:31 09/21/17 04:31 Assessment and Plan - Assessment and Plan (1) UTI (urinary tract infection) Status: Resolved (2) NSTEMI (non-ST elevated myocardial infarction) Status: Resolved (3) Hypotension Status: Acute - Attestation Attestation Narrative: 09/25/17 11:53 Recommendation After examining the patient I agree with the above assessment. I am involved in the formulation of the patient's plan of care. Hospital Course Summary Disclaimer: The visit summary below is not to be considered part of the above Progress Note.
[2017-09-18] MEDS: ENOXAPARIN 80 MG/0.8 ML INJECTION SQ SCH (11:16)
[2017-09-18] MEDS: 1/2 NS with KCL 20mEq 1,000 ML IV SCH (11:17)
[2017-09-18] MEDS: FLUTICASONE NASAL SPRAY 50mcg EA NOSTRIL SCH (11:22)
[2017-09-18] MEDS: NS 1,000 ML IV SCH (13:35)
--- NOTE | 2017-09-18 13:46 | Progress Note ---
- Date 09/18/17 Subjective: F/U: Severe sepsis secondary to UTI, UTI with E coli, Type II NSTEMI secondary to sepsis Feeling slightly better. Still with mild, diffuse discomfort to abdomen. Oral drive decrease, not taking much liquids in. Less stool output. Bloated to ab. Breathing feels short as hard to take deep breath due to ab fullness. Rare cough. Strength decreased; tiring to get to bathroom. No f/c. Objective Vital signs: Temperature 98.5 F 09/18/17 12:00 Pulse Rate 93 09/18/17 12:00 Respiratory Rate 20 09/18/17 12:00 Blood Pressure 158/67 H 09/18/17 12:00 Pulse Oximetry 96 09/18/17 12:00 Height/Weight/BMI: Weight 73.5 kg - Constitutional Present: mild distress, well nourished, well developed, average body habitus, cooperative, other (Still looks very weak and ill) - Routine HEENT Exam Head: Present: normocephalic, atraumatic Eye: Present: EOMI, PERRL ENT: Present: mucous membranes moist (No thrush) - Routine Respiratory Exam Present: decreased breath sounds. Absent: respiratory distress, rhonchi, wheezes - Routine Cardiovascular Exam Present: RRR, no murmur - Routine Abdominal Exam Present: soft, distended (Slight). Absent: normoactive bowel sounds (Not present), non distended - Routine Extremities Exam Present: no edema, pulses intact. Absent: cyanosis, clubbing Comments: SCD present - Routine Skin Exam Present: intact, dry, warm - Routine Neurological Exam Present: alert, oriented X3, CN II-XII intact, vision grossly intact, hearing grossly intact, normal speech. Absent: motor deficit, altered mental status - Routine Psychiatric Exam Present: normal affect, normal thought process, cooperative Results - Labs CBC & Chem 7: 09/18/17 04:42 09/18/17 04:42 Microbiology Results: Microbiology 09/16/17 20:37 Peripheral/Iv Start Blood Culture - Preliminary No Growth After 1 Day 09/16/17 20:30 Peripheral/Iv Start Blood Culture - Preliminary No Growth After 1 Day Assessment and Plan (1) Severe sepsis Current visit: Yes Status: Acute (2) UTI (urinary tract infection) Current visit: Yes Status: Acute (3) NSTEMI (non-ST elevated myocardial infarction) Current visit: Yes Status: Acute (4) Dehydration Current visit: Yes Status: Acute Assessment and Plan: Assessment Severe sepsis secondary to UTI Manifestations: encephalopathy, elevated troponin, acute kidney injury UTI - E coli NSTEMI - suspect Type II secondary to sepsis Acute Kidney injury - baseline creatinine 0.6 Metabolic acidosis - resolved Dehydration - hemoconcentration noted on presentation Encephalopathy - resolved Generalized debility secondary to acute illness Hypokalemia (Not POA) Asthma/Allergies OA GERD Plan Continue ceftriaxone for urinary coverage. US gallbladder showing sludge, but no inflammation. Will change Protonix to IV BID to help stomach protection. Encourage use of Dulcolax as worry developing ileus. Replace potassium. Encourage activities as able to help strength. Recheck CBC in am secondary to resolving sepsis. Check CMP in am due to IVF use and slight elevation of LFT. Case discussed with CM and pt's son. Time spent with patient care 25 minutes. DVT Prophylaxis: SCD's, Lovenox GI Prophylaxis: Protonix Resuscitation Status: Full Code - Time spent with patient Time with patient PN: 25 minutes - Physician Narrative Physician: Yuan Lara MD Narrative: Date: 09/18/17 Time: 1343 Hospital Course Summary Disclaimer: The visit summary below is not to be considered part of the above Progress Note. Hospital Course: 09/15/17 Admit to inpatient secondary to severe sepsis secondary to UTI - anticipate greater than 2 midnights of care needed. Ceftriaxone for urinary coverage - checking urine culture/sensitivities. IVF initiated at 150 cc/hr. Will recheck BMP to assess renal function. BP showing improvement from ED. Will decrease IVF to 100cc/hr. Consult with Dr Brady due to elevated troponin - suspect Type II NSTEMI. Tele secondary to NSTEMI. Zofran and Compazine prn nausea. Clear liquid diet due to decreased oral drive, advance as able. SCD for DVT prevention. Monitor lab. Full code as per patient request. Care to return to Dr Farah at time of discharge from [facility] [place]. 09/16/17 Urine culture growing E coli - will continue ceftriaxone and continue to check C /S. Continue with IVF of NS at 100c/hr as oral drive decreased. Creatinine improving with IVF - YURIY resolving. Advance diet at able - still with decreased oral drive. Cardiology ordered ECHO due to NSTEMI - results pending. As medically improving, will transfer to medical floor on tele for continuation of care. 09/17/17 Urine culture growing E coli - will continue ceftriaxone as showing sensitivity. Cefepime started yesterday evening as pt had temp elevation. Do not feel this will add more than. CT ab/pelvis showing GB sludge - will check US GB. Decrease with IVF of NS to 75cc/hr. Advance diet at able - still with decreased oral drive. PT/OT to help improve functional status. 09/18/17 Continue ceftriaxone for urinary coverage. US gallbladder showing sludge, but no inflammation. Will change Protonix to IV BID to help stomach protection. Encourage use of Dulcolax as worry developing ileus. Replace potassium. Encourage activities as able to help strength.
[2017-09-18] MEDS: CEFTRIAXONE 1 G in NS 100 ML IV SCH (15:06)
[2017-09-18] MEDS: PANTOPRAZOLE 40 MG INJECTION IVP SCH (21:02)
[2017-09-19] MEDS: ALBUTEROL/IPRATROPIUM 2.5mg-0.5mg/3ml NEB AEROSOL PRN (02:51)
[2017-09-19] MEDS: 1/2 NS with KCL 20mEq 1,000 ML IV SCH ×2 (04:50→15:59)
[2017-09-19] MEDS: ALBUTEROL/IPRATROPIUM 2.5mg-0.5mg/3ml NEB AEROSOL SCH ×4 (08:05→20:05)
[2017-09-19] MEDS: PANTOPRAZOLE 40 MG INJECTION IVP SCH ×2 (09:02→20:42)
[2017-09-19] MEDS: ASPIRIN *EC* 325 MG TABLET PO SCH ×2 (09:02→20:41)
[2017-09-19] MEDS: ACETAMINOPHEN 325 MG TABLET PO SCH ×4 (09:02→20:42)
--- NOTE | 2017-09-19 09:02 | Progress Note ---
- Date 09/19/17 Subjective: Daniela is seen today following call from nursing staff reporting telemetry reveled A-fibrillation 100-130's. Daniela is up in the chair today and initially denies having any symptoms of atrial fibrillation. However, upon further questioning, she reports she has had some substernal chest discomfort that she attributed to her breathing. She also reports that she thought this pain in her chest was related to her urinary tract infection. Mild nausea, remains on clear liquids. Objective Vital signs: Temperature 98.2 F 09/19/17 07:41 Pulse Rate 95 09/19/17 07:41 Respiratory Rate 16 09/19/17 08:05 Blood Pressure 175/92 H 09/19/17 07:44 Pulse Oximetry 96 09/19/17 08:05 Rhythm: Atrial Fibrillation with RVR Height/Weight/BMI: Weight 77.8 kg - Constitutional Present: no acute distress, well nourished, well developed - Routine HEENT Exam Eye: Present: EOMI ENT: Present: mucous membranes moist, dentition normal - Routine Respiratory Exam Present: CTA bilaterally. Absent: wheezes - Routine Cardiovascular Exam Present: S1, S2, irregular rhythm. Absent: murmur - Routine Abdominal Exam Present: soft, normoactive bowel sounds, non distended. Absent: tenderness - Routine Extremities Exam Present: full ROM - Routine Back/Spine/Pelvis Exam Back/Spine: Present: full ROM - Routine Skin Exam Present: intact, dry, warm - Routine Neurological Exam Present: alert, oriented X3, CN II-XII intact - Routine Lymphatic Exam Lymphatic: Absent: adenopathy - Routine Psychiatric Exam Present: normal affect, normal thought process, cooperative Results - Labs CBC & Chem 7: 09/19/17 04:42 09/19/17 16:11 Microbiology Results: Microbiology 09/16/17 20:37 Peripheral/Iv Start Blood Culture - Preliminary No Growth After 2 Days 09/16/17 20:30 Peripheral/Iv Start Blood Culture - Preliminary No Growth After 2 Days Assessment and Plan (1) Severe sepsis Current visit: Yes Status: Acute (2) UTI (urinary tract infection) Current visit: Yes Status: Acute (3) NSTEMI (non-ST elevated myocardial infarction) Current visit: Yes Status: Acute (4) Dehydration Current visit: Yes Status: Acute Assessment and Plan: Assessment Severe sepsis secondary to UTI Manifestations: encephalopathy, elevated troponin, acute kidney injury UTI - E coli New onset A-fib (Not POA) NSTEMI - suspect Type II secondary to sepsis Acute Kidney injury - baseline creatinine 0.6 Metabolic acidosis - resolved Dehydration - hemoconcentration noted on presentation Encephalopathy - resolved Generalized debility secondary to acute illness Hypokalemia (Not POA) Asthma/Allergies Mild pulmonary hypertension OA GERD Plan Obtain Stat EKG and Tronopin given new onset A-fib aggressive potassium placement- 40 Meq BID plus IV K boluses x4 Cardiology team notified of new onset A-fib Continue on Rocephin IV for treatment of E-coli UTI Continue BID Protonix for GI protection. Encourage bowel motivation with Dulcolax. Remains on liquids Po DVT Prophylaxis: SCD's Resuscitation Status: Full Code - Time spent with patient Time with patient PN: 25 minutes - Physician Narrative Physician: Yuan Lara MD Narrative: Date: 09/19/17 Time: 1834 Have independently interviewed and examined pt. Chart reviewed. 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 Care plan developed with my supervision; agree with above. Doing better this evening. While still very weak, is getting appetite back. Able to eat real foods without nausea. Did develop afib with RVR this am. Cardiology attempted cardioversion-returned to NSR, but returned to afib. Amiodarone drip started; planning repeat cardioversion in am. Notes some cough. No chest pain. Leaning towards skilled care to help her recovery. Lungs: decreased, no crackles/wheezes CV: irregularly irregular AB; soft nt MSE: awake alert Gen: looks less tire, more sparkle to eyes. Plan: Continue with ceftriaxone for urinary coverage. With oral drive improving , IVF able to decrease. Potassium replaced oral and IV - recheck showing improvement to 3.8. Encourage diet as able. Recheck lab in am. Anticipate repeat cardioversion tomorrow. Hospital Course Summary Disclaimer: The visit summary below is not to be considered part of the above Progress Note. Hospital Course: 09/15/17 Admit to inpatient secondary to severe sepsis secondary to UTI - anticipate greater than 2 midnights of care needed. Ceftriaxone for urinary coverage - checking urine culture/sensitivities. IVF initiated at 150 cc/hr. Will recheck BMP to assess renal function. BP showing improvement from ED. Will decrease IVF to 100cc/hr. Consult with Dr Brady due to elevated troponin - suspect Type II NSTEMI. Tele secondary to NSTEMI. Zofran and Compazine prn nausea. Clear liquid diet due to decreased oral drive, advance as able. SCD for DVT prevention. Monitor lab. Full code as per patient request. Care to return to Dr Farah at time of discharge from [facility] [place] 09/16/17 Urine culture growing E coli - will continue ceftriaxone and continue to check C /S. Continue with IVF of NS at 100c/hr as oral drive decreased. Creatinine improving with IVF - YURIY resolving. Advance diet at able - still with decreased oral drive. Cardiology ordered ECHO due to NSTEMI - results pending. As medically improving, will transfer to medical floor on tele for continuation of care. 09/17/17 Urine culture growing E coli - will continue ceftriaxone as showing sensitivity. Cefepime started yesterday evening as pt had temp elevation. Do not feel this will add more than ceftriaxone. CT ab/pelvis showing GB sludge - will check US GB. Decrease with IVF of NS to 75cc/hr. Advance diet at able - still with decreased oral drive. PT/OT to help improve functional status. 09/18/17 Continue ceftriaxone for urinary coverage. US gallbladder showing sludge, but no inflammation. Will change Protonix to IV BID to help stomach protection. Encourage use of Dulcolax as worry developing ileus. Replace potassium. Encourage activities as able to help strength. 09/19/17 Obtain Stat EKG and Tronopin given new onset A-fib Aggressive potassium placement- 40 Meq BID plus IV K boluses x4 Cardiology team notified of new onset A-fib Lovenox increased to 80mg BID. Attempted cardioversion. Initially did convert to NSR, but returned to Afib. Loading with amiodarone and planning repeat cardioversion tomorrow. Continue on Rocephin IV for treatment of E-coli UTI Continue BID Protonix for GI protection. Encourage bowel motivation with Dulcolax. Remains on liquids Po
[2017-09-19] MEDS: ENOXAPARIN 80 MG/0.8 ML INJECTION SQ SCH ×2 (09:04→20:39)
[2017-09-19] MEDS ORDERED: POTASSIUM CHLORIDE PREMIX 10 MEQ/100 ML BAG IV ONE (09:04)
[2017-09-19] MEDS: FLUTICASONE NASAL SPRAY 50mcg EA NOSTRIL SCH (09:04)
[2017-09-19] MEDS ORDERED: POTASSIUM CHLORIDE PREMIX 10 MEQ/100 ML BAG IV SCH (09:52)
[2017-09-19] MEDS ORDERED: AMIODARONE 150 MG in NS 100 ML IV ONE ×2 (10:55→14:21)
[2017-09-19] MEDS ORDERED: DiltiaZEM 25 MG/5 ML INJECTION IVP ONE (10:57)
[2017-09-19] MEDS ORDERED: AMIODARONE 450 MG in NS 250ml 250 ML IV SCH (11:00)
[2017-09-19] MEDS ORDERED: AMIODARONE 900 MG in NS 500ml 500 ML IV SCH (11:00)
[2017-09-19] MEDS: LIDOCAINE 1% INJ 10 MG, POTASSIUM CHLORIDE INJ 10 MEQ in NS 100 ML IV SCH ×4 (11:24→15:03)
--- NOTE | 2017-09-19 14:08 | Echocardiogram ---
DATE OF PROCEDURE September 15, 2017 REFERRING PHYSICIAN Thea Abad MD This is a two-dimensional echo with spectral Doppler, color-flow and M-mode. It was obtained in a patient with elevated troponin. Left atrial dimension is normal. Left ventricle end-diastolic dimension is normal. Left ventricle wall thickness is increased. LV systolic function is normal with ejection fraction of 64%. Right atrium is normal. Right ventricle is normal. Aortic root dimension is normal. Mitral valve is morphologically normal with mild mitral regurgitation. Aortic valve is a trileaflet structure with no stenosis. Mild aortic insufficiency is present. Tricuspid valve shows mild tricuspid regurgitation with mild pulmonary hypertension with estimated pulmonary artery systolic pressure of 37. Pulmonary valve shows no pulmonary insufficiency. There is trace to small pericardial effusion with no echocardiographic evidence of tamponade. IMPRESSION 1. Normal LV systolic function with ejection fraction of 64%. 2. Concentric left ventricular hypertrophy. 3. Mild mitral regurgitation. 4. Mild aortic insufficiency. 5. Mild tricuspid regurgitation with mild pulmonary hypertension with estimated pulmonary artery systolic pressure of 37. 6. Trace to small pericardial effusion with no echocardiographic evidence of tamponade. [employer]
[2017-09-19] MEDS: CEFTRIAXONE 1 G in NS 100 ML IV SCH (16:25)
[2017-09-19] MEDS ORDERED: SALINE FLUSH 10ml SYRINGE IV ONE (17:12)
[2017-09-19] MEDS ORDERED: MIDAZOLAM 2mg/2ml INJECTION IVP ONE (17:12)
[2017-09-19] MEDS ORDERED: FentaNYL 100 MCG/2 ML INJECTION IVP ONE (17:12)
[2017-09-19] MEDS: MELATONIN 5 MG TABLET PO PRN (21:56)
[2017-09-19] MEDS: LORazepam 0.5 MG TABLET PO PRN (21:57)
[2017-09-20] MEDS: ALBUTEROL/IPRATROPIUM 2.5mg-0.5mg/3ml NEB AEROSOL PRN (00:52)
[2017-09-20] MEDS: PROCHLORPERAZINE 10 MG/2 ML INJECTION IVP PRN (01:18)
[2017-09-20] MEDS: 1/2 NS with KCL 20mEq 1,000 ML IV SCH (07:31)
[2017-09-20] MEDS: ENOXAPARIN 80 MG/0.8 ML INJECTION SQ SCH (08:01)
[2017-09-20] MEDS: ASPIRIN *EC* 325 MG TABLET PO SCH ×2 (08:02→22:05)
[2017-09-20] MEDS: ACETAMINOPHEN 325 MG TABLET PO SCH ×4 (08:02→22:12)
[2017-09-20] MEDS: FLUTICASONE NASAL SPRAY 50mcg EA NOSTRIL SCH (08:03)
[2017-09-20] MEDS: PANTOPRAZOLE 40 MG INJECTION IVP SCH ×2 (08:03→22:05)
[2017-09-20] MEDS: ALBUTEROL/IPRATROPIUM 2.5mg-0.5mg/3ml NEB AEROSOL SCH ×3 (08:48→19:53)
--- NOTE | 2017-09-20 10:23 | DC Cardioversion ---
DATE OF PROCEDURE September 19, 2017 REFERRING PHYSICIAN Yuan Lara MD INDICATIONS Patient is a 77-year lady who was admitted with urinary tract infection and developed atrial fibrillation this morning and was referred for cardioversion. INFORMED CONSENT Informed consent was obtained after explaining the procedure and the potential risks to the patient and who agreed to proceed with the procedure. PROCEDURE 1. DC cardioversion. Conscious sedation was performed using Versed and fentanyl. Anterior-posterior Zoll pads were applied. 360 joules of energy was delivered in synchronized manner and patient converted from atrial fibrillation to sinus rhythm. She tolerated the procedure well with no complications. IMPRESSION 1. Successful DC cardioversion of atrial fibrillation to sinus rhythm. PLAN Will keep her on antiarrhythmics to maintain sinus and start her on anticoagulation. [facility]
--- NOTE | 2017-09-20 11:45 | Progress Note ---
- Date 09/20/17 Subjective: Daniela is feeling a little short of breath. She denies palpitations or chest pain, and she knows that she's back in A-fib. She reports an "awful" cough which is not new - occ it's productive. After she coughs she occ gets nauseated. She denies dizziness but does feel unsteady on her feet and is afraid of falling. She's noticed increased swelling to her arms and legs, and they feel a little tight. Objective Vital signs: Temperature 96.3 F L 09/20/17 04:00 Pulse Rate 77 09/20/17 08:00 Respiratory Rate 20 09/20/17 08:51 Blood Pressure 147/75 H 09/20/17 07:49 Pulse Oximetry 97 09/20/17 08:51 Rhythm: Atrial Fibrillation with Normal Ventricular Rate Height/Weight/BMI: Weight 78.9 kg - Constitutional Present: no acute distress, well nourished, well developed - Routine HEENT Exam Head: Present: normocephalic Eye: Present: PERRL. Absent: conjunctival icterus, scleral injection ENT: Present: mucous membranes moist, oropharynx clear - Routine Respiratory Exam Present: decreased breath sounds (b/l bases, L>R) - Routine Cardiovascular Exam Present: irregularly irregular - Routine Abdominal Exam Present: soft, normoactive bowel sounds, non distended, non tender - Routine Extremities Exam Present: edema (trace b/l), pulses intact - Routine Skin Exam Present: intact, dry, warm - Routine Neurological Exam Present: alert, oriented X3, CN II-XII intact, moving all extremities, normal speech - Routine Psychiatric Exam Present: normal affect, normal thought process, cooperative Results - Labs CBC & Chem 7: 09/20/17 04:16 09/20/17 04:16 Microbiology Results: Microbiology 09/16/17 20:37 Peripheral/Iv Start Blood Culture - Preliminary No Growth After 3 Days 09/16/17 20:30 Peripheral/Iv Start Blood Culture - Preliminary No Growth After 3 Days Assessment and Plan (1) Severe sepsis Current visit: Yes Status: Acute (2) UTI (urinary tract infection) Current visit: Yes Status: Acute (3) NSTEMI (non-ST elevated myocardial infarction) Current visit: Yes Status: Acute (4) Dehydration Current visit: Yes Status: Acute Assessment and Plan: Assessment Severe sepsis secondary to UTI Manifestations: encephalopathy, elevated troponin, acute kidney injury UTI - E coli New onset A-fib (Not POA) NSTEMI - suspect Type II secondary to sepsis Acute Kidney injury - baseline creatinine 0.6 Metabolic acidosis - resolved Dehydration - hemoconcentration noted on presentation Encephalopathy - resolved Generalized debility secondary to acute illness Hypokalemia (Not POA) Asthma/Allergies Mild pulmonary hypertension OA GERD Plan Weight trending up (+8kg), + fluid balance, increased SOA, increased O2 needs, decreased air movement b/l bases -- CXR ordered. Stop IVF. Converted to NSR overnight with amiodarone drip - Cardiology keeping pt NPO today incase of return to afib/need for cardioversion. K normal at 3.6. Cont KDur. Cont ceftriaxone day #4 for UTI. WBC 6.7; afebrile. D/W Dr. Lara. DVT Prophylaxis: Xarelto GI Prophylaxis: Protonix Resuscitation Status: Full Code - Time spent with patient Time with patient PN: 25 minutes - Physician Narrative Physician: Yuan Lara MD Narrative: Date: 09/20/17 Time: 1410 Have independently interviewed and examined pt. Chart reviewed. 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 Care plan developed with my supervision; agree with above. Doing okay today. Worked well with therapy, strength improving gradually. Did eat well with evening meal last night (had to stop as started to feel full-didn' t want to stop as was tasting so well). Passing flatus-stools slow. Notes some SOA and cough; no sputum. No f/c. Lungs: decreased, no crackles or wheeze. CV: regular AB: soft nt/nd BS decreased MSE: awake alert Plan: Cardiology keeping pt NPO incase of need for cardioversion-did convert spontaneously this am. Continue with activities and therapy. Can stop IVF. Continue Rocephin for coverage. Planning skill at discharge to help strength. Hospital Course Summary Disclaimer: The visit summary below is not to be considered part of the above Progress Note. Hospital Course: 09/15/17 Admit to inpatient secondary to severe sepsis secondary to UTI - anticipate greater than 2 midnights of care needed. Ceftriaxone for urinary coverage - checking urine culture/sensitivities. IVF initiated at 150 cc/hr. Will recheck BMP to assess renal function. BP showing improvement from ED. Will decrease IVF to 100cc/hr. Consult with Dr Brady due to elevated troponin - suspect Type II NSTEMI. Tele secondary to NSTEMI. Zofran and Compazine prn nausea. Clear liquid diet due to decreased oral drive, advance as able. SCD for DVT prevention. Monitor lab. Full code as per patient request. Care to return to Dr Farah [place] [facility] [place] 09/16/17 Urine culture growing E coli - will continue ceftriaxone and continue to check C /S. Continue with IVF of NS at 100c/hr as oral drive decreased. Creatinine improving with IVF - YURIY resolving. Advance diet at able - still with decreased oral drive. Cardiology ordered ECHO due to NSTEMI - results pending. As medically improving, will transfer to medical floor on tele for continuation of care. 09/17/17 Urine culture growing E coli - will continue ceftriaxone as showing sensitivity. Cefepime started yesterday evening as pt had temp elevation. Do not feel this will add more than ceftriaxone. CT ab/pelvis showing GB sludge - will check US GB. Decrease with IVF of NS to 75cc/hr. Advance diet at able - still with decreased oral drive. PT/OT to help improve functional status. 09/18/17 Continue ceftriaxone for urinary coverage. US gallbladder showing sludge, but no inflammation. Will change Protonix to IV BID to help stomach protection. Encourage use of Dulcolax as worry developing ileus. Replace potassium. Encourage activities as able to help strength. 09/19/17 Obtain Stat EKG and Tronopin given new onset A-fib Aggressive potassium placement- 40 Meq BID plus IV K boluses x4. Repeat BMP after treatment showing increase of potassium to 3.8. Cardiology team notified of new onset A-fib. Lovenox increased to 80mg BID. Attempted cardioversion. Initially did convert to NSR, but returned to Afib. Loading with amiodarone and planning repeat cardioversion tomorrow. Continue on Rocephin IV for treatment of E-coli UTI. Continue BID Protonix for GI protection. Encourage bowel motivation with Dulcolax. Remains on liquids Po. 09/20/17 Weight trending up (+8kg), + fluid balance, increased SOA, increased O2 needs, decreased air movement b/l bases -- CXR ordered. Stop IVF. Converted to NSR overnight with amiodarone drip - Cardiology keeping pt NPO today incase of return to afib/need for cardioversion. K normal at 3.6. Cont KDur. Cont ceftriaxone day #4 for UTI. WBC 6.7; afebrile.
--- NOTE | 2017-09-20 12:38 | XRay Report ---
INDICATION: short of breath, increased oxygen needs PROCEDURE: CHEST 2-VIEWS UPRIGHT (PA & LAT) Encounter: Initial COMPARISON: September 17, 2017 FINDINGS: Stable small pleural effusions with lower lobe airspace disease. No new or worsening airspace consolidation. No pneumothorax. Heart size and mediastinal contours are stable. Mild pulmonary vascular congestion persists. Impression: Stable small effusions and mild edema. .
--- NOTE | 2017-09-20 13:19 | Cardiology Progress Note ---
<Gabi Dawn - Last Filed: 09/21/17 11:48> Subjective Principal diagnosis: weakness Interval history: Daniela is seen in follow up for New onset A Fib, UTI, NSTEMI and hypotension. She is in SR and states she is feeling somewhat better than yesterday. She denies chest pain, dyspnea, palpitations or complaints. Exam Vital signs: Temperature 96.6 F L 09/20/17 11:49 Pulse Rate 65 09/20/17 11:49 Respiratory Rate 18 09/20/17 13:09 Blood Pressure 157/84 H 09/20/17 11:49 Pulse Oximetry 96 09/20/17 11:49 Inpatient Medications: Generic Name Dose Route Start Last Admin Trade Name Freq PRN Reason Stop Dose Admin Acetaminophen 650 mg 09/16/17 13:00 09/20/17 08:02 Tylenol PO 650 mg QID KENN Administration Acetaminophen 650 mg 09/18/17 10:13 Tylenol PO Q5H PRN Discomfort Hydrocodone Bitart/Acetaminophen 1 tab 09/15/17 02:11 09/18/17 21:01 [place] 5/325 PO 1 tab Q6H PRN Administration Pain Al Hydroxide/Mg Hydroxide 30 ml 09/15/17 13:27 09/16/17 17:33 Maalox Plus PO 30 ml Q3H PRN Administration Indigestion Albuterol/Ipratropium 3 ml 09/16/17 21:00 09/20/17 13:09 Duoneb AEROSOL 3 ml RTQID KENN Administration Albuterol/Ipratropium 3 ml 09/17/17 08:53 09/20/17 00:52 Duoneb AEROSOL 3 ml Q4HR PRN Administration Aspirin 325 mg 09/16/17 21:00 09/20/17 08:02 Ecotrin PO 325 mg BID KENN Administration Bisacodyl 10 mg 09/17/17 10:20 09/17/17 10:57 Dulcolax RECTALLY 10 mg DAILY PRN Administration Constipation Diphenhydramine HCl 25 mg 09/16/17 10:37 Benadryl PO Q6H PRN Allergy symptoms Fluticasone Propionate 2 spray 09/17/17 09:00 09/20/17 08:03 Flonase EA NOSTRIL 2 spray DAILY KENN Administration Ceftriaxone Sodium 1 g/ Sodium 100 mls @ 200 mls/hr 09/17/17 15:00 09/19/17 16:55 Chloride IV Infused Q24H KENN Infusion Amiodarone HCl 900 mg/ Sodium 500 mls @ 16.66 mls/hr 09/19/17 11:00 09/19/17 18:54 Chloride IV 0.5 mg/min .Q24H KENN 16.66 mls/hr 0.5 MG/MIN Administration Lorazepam 0.25 mg 09/16/17 23:28 09/19/17 21:57 Ativan PO 0.25 mg HS PRN Administration Magnesium Hydroxide 30 ml 09/17/17 10:20 Mom PO DAILY PRN Constipation Magnesium Oxide 400 mg 09/20/17 17:30 Magox PO 09/20/17 17:31 O ONE Melatonin 10 mg 09/16/17 10:38 09/19/17 21:56 Melatonin PO 10 mg HS PRN Administration Sleep Menthol 1 lozenge 09/15/17 10:33 09/15/17 13:19 Ricola Sf MM 1 lozenge PRN PRN Administration Cough Metoprolol Tartrate 25 mg 09/19/17 17:30 09/20/17 08:03 Lopressor PO 25 mg BIDWM KENN Administration Morphine Sulfate 1 - 2 mg 09/15/17 02:11 09/17/17 04:19 Morphine Sulf 2 Mg Inj IVP 2 mg Q2H PRN Administration Pain Ondansetron HCl 4 mg 09/15/17 02:11 09/15/17 05:07 Zofran IVP 4 mg Q6H PRN Administration Nausea &/or vomiting Pantoprazole Sodium 40 mg 09/18/17 21:00 09/20/17 08:03 Protonix Iv IVP 40 mg BID KENN Administration Potassium Chloride 40 meq 09/19/17 21:00 09/20/17 08:02 K-Dur 20 Meq Tablet PO 40 meq BID KENN Administration Prochlorperazine Edisylate 10 mg 09/15/17 10:33 09/20/17 01:18 Compazine Iv IVP 10 mg Q6H PRN Administration Nausea &/or vomiting Rivaroxaban 20 mg 09/20/17 17:30 Xarelto PO WS KENN Sodium Chloride 10 - 80 ml 09/14/17 21:29 09/14/17 21:35 Iv Flush IVF 10 ml PRN PRN Administration Flushing Discontinued Medications Generic Name Dose Route Start Last Admin Trade Name Bonita PRN Reason Stop Dose Admin Acetaminophen 325 - 650 mg 09/15/17 07:43 09/16/17 08:39 Tylenol PO 650 mg Q5H PRN Administration Discomfort Albuterol Sulfate 2.5 mg 09/15/17 22:43 09/16/17 17:53 Proventil Neb (0.083%) AEROSOL 2.5 mg Q4H PRN Administration Diltiazem HCl 20 mg 09/19/17 10:57 09/19/17 11:36 Cardizem 25 Mg Inj IVP 09/19/17 10:58 20 mg O ONE Administration Enoxaparin Sodium 70 mg 09/16/17 23:30 09/18/17 11:16 Lovenox SQ 70 mg DAILY KENN Administration Enoxaparin Sodium 80 mg 09/19/17 09:00 09/20/17 08:01 Lovenox SQ 80 mg BID KENN Administration Sodium Chloride 1,000 mls @ 1,000 mls/hr 09/14/17 21:29 09/14/17 22:08 Normal Saline IV 09/14/17 22:28 Infused .Q1H ONE Infusion Sodium Chloride 1,000 mls @ 999.9 mls/hr 09/14/17 22:24 09/14/17 23:00 Normal Saline IV 09/14/17 23:23 Infused .Q1H ONE Infusion Ceftriaxone Sodium 1 gm/ 100 mls @ 200 mls/hr 09/15/17 00:00 09/15/17 00:32 Sodium Chloride IV 09/15/17 00:29 Infused O ONE Infusion Sodium Chloride 1,000 mls @ 150 mls/hr 09/15/17 00:15 09/15/17 23:00 Normal Saline IV Infused .Q6H40M KENN Infusion Ceftriaxone Sodium 1 g/ Sodium 100 mls @ 200 mls/hr 09/15/17 12:00 09/16/17 12:00 Chloride IV Infused Q24H KENN Infusion Sodium Chloride 1,000 mls @ 100 mls/hr 09/15/17 16:15 09/17/17 10:11 Normal Saline IV Not Given .Q10H KENN Cefepime HCl 1 gm/ Sodium 100 mls @ 200 mls/hr 09/16/17 20:15 09/17/17 10:05 Chloride IV Infused Q6H KENN Infusion Vancomycin HCl 1,250 mg/ 250 mls @ 200 mls/hr 09/16/17 20:45 09/17/17 11:32 Sodium Chloride IV Infused Q12H KENN Infusion Sodium Chloride 1,000 mls @ 75 mls/hr 09/16/17 22:35 09/18/17 13:35 Normal Saline IV Not Given .[id number] KENN Vancomycin HCl 1,375 mg/ 500 mls @ 250 mls/hr 09/18/17 04:45 09/18/17 06:46 Sodium Chloride IV Infused Q18H KENN Infusion Potassium Chloride 10 meq in 100 mls @ 100 mls/hr 09/18/17 06:21 09/18/17 09: 06 Potassium Chloride Premix IV 09/18/17 07:20 Infused O ONE Infusion Potassium Chloride/Sodium Chloride 1,000 mls @ 75 mls/hr 09/18/17 06:30 09/18 10:56 1/2 Ns With Kcl 20meq Premix IV Infused .[id number] KENN Infusion Potassium Chloride/Sodium Chloride 1,000 mls @ 50 mls/hr 09/18/17 11:00 09/20 12:07 1/2 Ns With Kcl 20meq Premix IV Infused .Q20H KENN Infusion Potassium Chloride 10 meq in 100 mls @ 75 mls/hr 09/19/17 09:04 Potassium Chloride Premix IV 09/19/17 10:23 O ONE Potassium Chloride 10 meq in 100 mls @ 100 mls/hr 09/19/17 09:52 Potassium Chloride Premix IV 09/19/17 12:51 Q1H KENN Lidocaine HCl 10 mg/ Potassium 100 mls @ 100 mls/hr 09/19/17 10:00 09/19/17 16:03 Chloride 10 meq/ Sodium IV 09/19/17 14:13 Infused Chloride .Q1H KENN Infusion Amiodarone HCl 150 mg/ Sodium 103 mls @ 618 mls/hr 09/19/17 10:55 09/19/17 12 :15 Chloride IV 09/19/17 11:04 Infused O ONE Infusion Amiodarone HCl 450 mg/ Sodium 250 mls @ 33.33 mls/hr 09/19/17 11:00 09/19/17 19:53 Chloride IV 09/19/17 17:00 Infused .Q7H31M KENN Infusion 1 MG/MIN Amiodarone HCl 150 mg/ Sodium 103 mls @ 618 mls/hr 09/19/17 14:21 09/19/17 15 :53 Chloride IV 09/19/17 14:30 Infused O ONE Infusion Omeprazole 20 mg 09/17/17 06:30 09/18/17 08:07 Prilosec PO 20 mg ACB KENN Administration Potassium Chloride 20 meq 09/19/17 08:00 K-Dur 20 Meq Tablet PO BIDWM KENN Potassium Chloride 20 meq 09/19/17 08:45 09/19/17 10:12 K-Dur 20 Meq Tablet PO 09/19/17 08:46 20 meq O ONE Administration Potassium Chloride 40 meq 09/19/17 08:51 09/19/17 09:00 K-Dur 20 Meq Tablet PO 40 meq BIDWM KENN Administration Vancomycin HCl 1 each 09/16/17 20:03 09/16/17 20:30 Pharmacy Consult - Vancomycin 09/16/17 20:04 1 each O ONE Administration - Constitutional mild distress, well nourished, cooperative - Routine HEENT Exam Head: Present: normocephalic ENT: Present: mucous membranes moist - Routine Neck Exam Absent: carotid bruit - Routine Chest/Breast/Axilla Exam Chest wall: Absent: tenderness - Routine Respiratory Exam Present: dyspnea, diminished air movement (bases) - Routine Cardiovascular Exam Present: RRR, no murmur - Routine Abdominal Exam Present: soft, non tender - Routine Extremities Exam Present: edema - Routine Skin Exam Present: intact, dry, warm - Routine Neurological Exam Present: alert, oriented X3 - Routine Psychiatric Exam Present: normal affect, normal thought process Results 09/21/17 04:31 09/21/17 04:31 Cardiac Enzymes 09/20/17 Range/Units 04:14 AST 47 H D (14-36) U/L CBC 09/20/17 Range/Units 04:16 WBC 6.7 (4.5-11.0) T/MM3 RBC 4.12 (4.00-5.20) M/MM3 Hgb 12.5 (12-16) GM/DL Hct 37.3 (36-46) % Plt Count 289 (130-400) T/MM3 Neut # (Auto) Not performed Lymph # (Auto) Not performed [place] # (Auto) Not performed Eos # (Auto) Not performed Baso # (Auto) Not performed Comprehensive Metabolic Panel 09/19/17 09/20/17 09/20/17 Range/Units 16:11 04:14 04:16 Sodium 146 H 144 (134-144) MEQ/L Potassium 3.8 D 3.6 (3.6-5) MEQ/L Chloride 110 H 108 H (98-107) MEQ/L Carbon Dioxide 26 25 (22-30) MEQ/L BUN 4.0 L 6.0 L D (7-17) MG/DL Creatinine 0.5 L 0.5 L (0.7-1.2) mg/dL Glucose 117 H 106 (65-110) MG/DL Calcium 7.8 L 8.0 L (8.4-10.2) MG/DL Unconjugated Bilirubin 0.00 (0.00-1.1) mg/dL AST 47 H D (14-36) U/L ALT 52 H (1-35) U/L Alkaline Phosphatase 82 (38-126) U/L Total Protein 5.2 L (6.3-8.2) g/dL Albumin 2.7 L (3.5-5.0) g/dL Intake and Output 09/19/17 09/20/17 09/20/17 22:59 06:59 14:59 Intake Total 1353 / 1353 671.667 / 671.667 230 / 230 Output Total 300 / 300 350 / 350 550 / 550 Balance 1053 / 1053 321.667 / 321.667 -320 / -320 Intake: IV 553 / 553 671.667 / 671.667 230 / 230 1/2 NS with KCL 20mEq 1,000 ml 0 / 0 671.667 / 671.667 230 / 230 @ 50 mls/hr IV .Q20H [facility] Rx#: [id number] Amiodarone 150 mg In Ns 100 ml 103 / 103 @ 618 mls/hr IV O ONE Rx#: [id number] Amiodarone 450 mg In NS 250ml 250 / 250 250 ml @ 1 MG/MIN 33.33 mls/hr IV .Q7H31M [facility] Rx#:[id number] Ceftriaxone 1 g In Ns 100 ml @ 100 / 100 200 mls/hr IV Q24H KENN Rx#: [id number] Lidocaine 1% Inj 10 mg 100 / 100 Potassium Chloride Inj 10 meq In Ns 100 ml @ 100 mls/hr IV . Q1H KENN Rx#:[id number] Oral 800 / 800 Output: Urine 300 / 300 350 / 350 550 / 550 Other: Urine Appearance Clear Clear Clear Urine Color Yellow Yellow Yellow Urine Odor Normal Normal Stool Color Brown Brown Stool Consistency Loose Soft Size of Bowel Movement Small # Bowel Movements 1 # Incontinent Bowel Movements 1 # Unmeasured Emesis Episodes 1 Weight 173 lb 15.115 oz - Imaging and Cardiology Imaging & Cardiology Narrative: Date of Exam: 09/20/17 Ordering Provider: Charlene Oconnor APRN Type of Exam(s): XR chest 2V Reason for Exam(s): short of breath, increased oxygen needs INDICATION: short of breath, increased oxygen needs PROCEDURE: CHEST 2-VIEWS UPRIGHT (PA & LAT) Encounter: Initial COMPARISON: September 17, 2017 FINDINGS: Stable small pleural effusions with lower lobe airspace disease. No new or worsening airspace consolidation. No pneumothorax. Heart size and mediastinal contours are stable. Mild pulmonary vascular congestion persists. Impression: Stable small effusions and mild edema. . 09/20/17 13:17 09/20/17 13:17 DATE OF PROCEDURE September 19, 2017 REFERRING PHYSICIAN Yuan Lara MD INDICATIONS Patient is a 77-year lady who was admitted with urinary tract infection and developed atrial fibrillation this morning and was referred for cardioversion. INFORMED CONSENT Informed consent was obtained after explaining the procedure and the potential risks to the patient and who agreed to proceed with the procedure. PROCEDURE 1. DC cardioversion. Conscious sedation was performed using Versed and fentanyl. Anterior-posterior Zoll pads were applied. 360 joules of energy was delivered in synchronized manner and patient converted from atrial fibrillation to sinus rhythm. She tolerated the procedure well with no complications. IMPRESSION 1. Successful DC cardioversion of atrial fibrillation to sinus rhythm. PLAN Will keep her on antiarrhythmics to maintain sinus and start her on anticoagulation. 09/21/17 11:52 Date of Exam: 09/15/17 Type of Exam(s): US echo doppler complete DATE OF PROCEDURE September 15, 2017 REFERRING PHYSICIAN Thea Abad MD This is a two-dimensional echo with spectral Doppler, color-flow and M-mode. It was obtained in a patient with elevated troponin. Left atrial dimension is normal. Left ventricle end-diastolic dimension is normal. Left ventricle wall thickness is increased. LV systolic function is normal with ejection fraction of 64%. Right atrium is normal. Right ventricle is normal. Aortic root dimension is normal. Mitral valve is morphologically normal with mild mitral regurgitation. Aortic valve is a trileaflet structure with no stenosis. Mild aortic insufficiency is present. Tricuspid valve shows mild tricuspid regurgitation with mild pulmonary hypertension with estimated pulmonary artery systolic pressure of 37. Pulmonary valve shows no pulmonary insufficiency. There is trace to small pericardial effusion with no echocardiographic evidence of tamponade. IMPRESSION 1. Normal LV systolic function with ejection fraction of 64%. 2. Concentric left ventricular hypertrophy. 3. Mild mitral regurgitation. 4. Mild aortic insufficiency. 5. Mild tricuspid regurgitation with mild pulmonary hypertension with estimated pulmonary artery systolic pressure of 37. 6. Trace to small pericardial effusion with no echocardiographic evidence of tamponade. Assessment and Plan - Assessment and Plan (1) UTI (urinary tract infection) Status: Acute (2) NSTEMI (non-ST elevated myocardial infarction) Status: Acute (3) Hypotension Status: Acute - Assessment and Plan 09/15/17 NSTEMI (non-ST elevated myocardial infarction) Start date: 09/14/17 Current visit: Yes Status: Acute - Likely r/t acute infection - Echo pending - Trop peak at 0.8, no ischemia noted on ECG - No complaints of chest pain Hypotension Start date: 09/14/17 Current visit: Yes Status: Acute - Fluid bolus as needed - Consider pressor support to keep MAP <65 UTI (urinary tract infection) Start date: 09/14/17 Current visit: Yes Status: Acute - ABX per attending Thank you for the consult. Will continue to follow with you 09/17/17 Will plan outpatient stress test when recovers from current illness. - Follow up with Dr. Brady 2 weeks after discharge - continue to monitor telemetry 09/18/17 K+ 2.8, replaced per hospitalist - Monitor renal and electrolytes - Echo pending 09/19/17 Successful DC cardioversion of atrial fibrillation to sinus rhythm. Will keep her on antiarrhythmics to maintain sinus and start her on anticoagulation. 09/20/17 In SR, change Amiodarone drip to 200mg po daily - Xarelto 20mg po daily for stroke prevention - CXR: Stable small effusions and mild edema. - Lasix 40mg now and then daily for pulmonary edema - Monitor renal and electrolytes Hospital Course Summary Disclaimer: The visit summary below is not to be considered part of the above Progress Note. Hospital Course: 09/15/17 Admit to inpatient secondary to severe sepsis secondary to UTI - anticipate greater than 2 midnights of care needed. Ceftriaxone for urinary coverage - checking urine culture/sensitivities. IVF initiated at 150 cc/hr. Will recheck BMP to assess renal function. BP showing improvement from ED. Will decrease IVF to 100cc/hr. Consult with Dr Brady due to elevated troponin - suspect Type II NSTEMI. Tele secondary to NSTEMI. Zofran and Compazine prn nausea. Clear liquid diet due to decreased oral drive, advance as able. SCD for DVT prevention. Monitor lab. Full code as per patient request. Care to return to Dr Farah at time of [place] [facility] [place] 09/16/17 Urine culture growing E coli - will continue ceftriaxone and continue to check C /S. Continue with IVF of NS at 100c/hr as oral drive decreased. Creatinine improving with IVF - YURIY resolving. Advance diet at able - still with decreased oral drive. Cardiology ordered ECHO due to NSTEMI - results pending. As medically improving, will transfer to medical floor on tele for continuation of care. 09/17/17 Urine culture growing E coli - will continue ceftriaxone as showing sensitivity. Cefepime started yesterday evening as pt had temp elevation. Do not feel this will add more than ceftriaxone. CT ab/pelvis showing GB sludge - will check US GB. Decrease with IVF of NS to 75cc/hr. Advance diet at able - still with decreased oral drive. PT/OT to help improve functional status. 09/18/17 Continue ceftriaxone for urinary coverage. US gallbladder showing sludge, but no inflammation. Will change Protonix to IV BID to help stomach protection. Encourage use of Dulcolax as worry developing ileus. Replace potassium. Encourage activities as able to help strength. 09/19/17 Obtain Stat EKG and Tronopin given new onset A-fib Aggressive potassium placement- 40 Meq BID plus IV K boluses x4 Cardiology team notified of new onset A-fib Lovenox increased to 80mg BID. Attempted cardioversion. Initially did convert to NSR, but returned to Afib. Loading with amiodarone and planning repeat cardioversion tomorrow. Continue on Rocephin IV for treatment of E-coli UTI Continue BID Protonix for GI protection. Encourage bowel motivation with Dulcolax. Remains on liquids Po 09/20/17 Weight trending up (+8kg), + fluid balance, increased SOA, increased O2 needs, decreased air movement b/l bases -- CXR ordered. Stop IVF. Back in A-fib (rate controlled) this am s/p cardioversion. Per cardiology. Cont Amiodarone K normal at 3.6. Cont KDur. Cont ceftriaxone day #4 for UTI. WBC 6.7; afebrile. <Fernando Brady - Last Filed: 09/26/17 09:41> Exam Vital signs: Temperature 97.8 F 09/21/17 12:00 Pulse Rate 80 09/21/17 12:00 Respiratory Rate 12 09/21/17 12:00 Blood Pressure 148/83 H 09/21/17 12:00 Pulse Oximetry 94 09/21/17 12:00 Inpatient Medications: Discontinued Medications Generic Name Dose Route Start Last Admin Trade Name Freq PRN Reason Stop Dose Admin Acetaminophen 325 - 650 mg 09/15/17 07:43 09/16/17 08:39 Tylenol PO 650 mg Q5H PRN Administration Discomfort Acetaminophen 650 mg 09/16/17 13:00 09/21/17 09:09 Tylenol PO 650 mg QID KENN Administration Acetaminophen 650 mg 09/18/17 10:13 Tylenol PO Q5H PRN Discomfort Hydrocodone Bitart/Acetaminophen 1 tab 09/15/17 02:11 09/18/17 21:01 [place] 5/325 PO 1 tab Q6H PRN Administration Pain Al Hydroxide/Mg Hydroxide 30 ml 09/15/17 13:27 09/16/17 17:33 Maalox Plus PO 30 ml Q3H PRN Administration Indigestion Albuterol Sulfate 2.5 mg 09/15/17 22:43 09/16/17 17:53 Proventil Neb (0.083%) AEROSOL 2.5 mg Q4H PRN Administration Albuterol/Ipratropium 3 ml 09/16/17 21:00 09/21/17 10:41 Duoneb AEROSOL 3 ml RTQID KENN Administration Albuterol/Ipratropium 3 ml 09/17/17 08:53 09/21/17 04:02 Duoneb AEROSOL 3 ml Q4HR PRN Administration Amiodarone HCl 200 mg 09/20/17 18:15 09/21/17 09:10 Pacerone PO 200 mg DAILY KENN Administration Aspirin 325 mg 09/16/17 21:00 09/21/17 09:10 Ecotrin PO 325 mg BID KENN Administration Bisacodyl 10 mg 09/17/17 10:20 09/17/17 10:57 Dulcolax RECTALLY 10 mg DAILY PRN Administration Constipation Diltiazem HCl 20 mg 09/19/17 10:57 09/19/17 11:36 Cardizem 25 Mg Inj IVP 09/19/17 10:58 20 mg O ONE Administration Diphenhydramine HCl 25 mg 09/16/17 10:37 Benadryl PO Q6H PRN Allergy symptoms Enoxaparin Sodium 70 mg 09/16/17 23:30 09/18/17 11:16 Lovenox SQ 70 mg DAILY KENN Administration Enoxaparin Sodium 80 mg 09/19/17 09:00 09/20/17 08:01 Lovenox SQ 80 mg BID KENN Administration Fluticasone Propionate 2 spray 09/17/17 09:00 09/21/17 09:10 Flonase EA NOSTRIL 2 spray DAILY KENN Administration Furosemide 40 mg 09/20/17 18:15 09/21/17 09:10 Lasix 40 Mg Tab PO 40 mg DAILY KENN Administration Sodium Chloride 1,000 mls @ 1,000 mls/hr 09/14/17 21:29 09/14/17 22:08 Normal Saline IV 09/14/17 22:28 Infused .Q1H ONE Infusion Sodium Chloride 1,000 mls @ 999.9 mls/hr 09/14/17 22:24 09/14/17 23:00 Normal Saline IV 09/14/17 23:23 Infused .Q1H ONE Infusion Ceftriaxone Sodium 1 gm/ 100 mls @ 200 mls/hr 09/15/17 00:00 09/15/17 00:32 Sodium Chloride IV 09/15/17 00:29 Infused O ONE Infusion Sodium Chloride 1,000 mls @ 150 mls/hr 09/15/17 00:15 09/15/17 23:00 Normal Saline IV Infused .Q6H40M KENN Infusion Ceftriaxone Sodium 1 g/ Sodium 100 mls @ 200 mls/hr 09/15/17 12:00 09/16/17 12:00 Chloride IV Infused Q24H KENN Infusion Sodium Chloride 1,000 mls @ 100 mls/hr 09/15/17 16:15 09/17/17 10:11 Normal Saline IV Not Given .Q10H KENN Cefepime HCl 1 gm/ Sodium 100 mls @ 200 mls/hr 09/16/17 20:15 09/17/17 10:05 Chloride IV Infused Q6H KENN Infusion Vancomycin HCl 1,250 mg/ 250 mls @ 200 mls/hr 09/16/17 20:45 09/17/17 11:32 Sodium Chloride IV Infused Q12H KENN Infusion Sodium Chloride 1,000 mls @ 75 mls/hr 09/16/17 22:35 09/18/17 13:35 Normal Saline IV Not Given .[id number] KENN Ceftriaxone Sodium 1 g/ Sodium 100 mls @ 200 mls/hr 09/17/17 15:00 09/20/17 16:00 Chloride IV Infused Q24H KENN Infusion Vancomycin HCl 1,375 mg/ 500 mls @ 250 mls/hr 09/18/17 04:45 09/18/17 06:46 Sodium Chloride IV Infused Q18H KENN Infusion Potassium Chloride 10 meq in 100 mls @ 100 mls/hr 09/18/17 06:21 09/18/17 09: 06 Potassium Chloride Premix IV 09/18/17 07:20 Infused O ONE Infusion Potassium Chloride/Sodium Chloride 1,000 mls @ 75 mls/hr 09/18/17 06:30 09/18 10:56 1/2 Ns With Kcl 20meq Premix IV Infused .[id number] KENN Infusion Potassium Chloride/Sodium Chloride 1,000 mls @ 50 mls/hr 09/18/17 11:00 09/20 12:07 1/2 Ns With Kcl 20meq Premix IV Infused .Q20H KENN Infusion Potassium Chloride 10 meq in 100 mls @ 75 mls/hr 09/19/17 09:04 Potassium Chloride Premix IV 09/19/17 10:23 O ONE Potassium Chloride 10 meq in 100 mls @ 100 mls/hr 09/19/17 09:52 Potassium Chloride Premix IV 09/19/17 12:51 Q1H KENN Lidocaine HCl 10 mg/ Potassium 100 mls @ 100 mls/hr 09/19/17 10:00 09/19/17 16:03 Chloride 10 meq/ Sodium IV 09/19/17 14:13 Infused Chloride .Q1H KENN Infusion Amiodarone HCl 150 mg/ Sodium 103 mls @ 618 mls/hr 09/19/17 10:55 09/19/17 12 :15 Chloride IV 09/19/17 11:04 Infused O ONE Infusion Amiodarone HCl 450 mg/ Sodium 250 mls @ 33.33 mls/hr 09/19/17 11:00 09/19/17 19:53 Chloride IV 09/19/17 17:00 Infused .Q7H31M KENN Infusion 1 MG/MIN Amiodarone HCl 900 mg/ Sodium 500 mls @ 16.66 mls/hr 09/19/17 11:00 09/20/17 18:19 Chloride IV Infused .Q24H KENN Infusion 0.5 MG/MIN Amiodarone HCl 150 mg/ Sodium 103 mls @ 618 mls/hr 09/19/17 14:21 09/19/17 15 :53 Chloride IV 09/19/17 14:30 Infused O ONE Infusion Lorazepam 0.25 mg 09/16/17 23:28 09/19/17 21:57 Ativan PO 0.25 mg HS PRN Administration Magnesium Hydroxide 30 ml 09/17/17 10:20 09/21/17 11:24 Mom PO 30 ml DAILY PRN Administration Constipation Magnesium Oxide 400 mg 09/20/17 17:30 09/20/17 17:42 Magox PO 09/20/17 17:31 400 mg O ONE Administration Melatonin 10 mg 09/16/17 10:38 09/19/17 21:56 Melatonin PO 10 mg HS PRN Administration Sleep Menthol 1 lozenge 09/15/17 10:33 09/15/17 13:19 Ricola Sf MM 1 lozenge PRN PRN Administration Cough Metoprolol Tartrate 25 mg 09/19/17 17:30 09/21/17 09:09 Lopressor PO 25 mg BIDWM KENN Administration Morphine Sulfate 1 - 2 mg 09/15/17 02:11 09/17/17 04:19 Morphine Sulf 2 Mg Inj IVP 2 mg Q2H PRN Administration Pain Omeprazole 20 mg 09/17/17 06:30 09/18/17 08:07 Prilosec PO 20 mg ACB KENN Administration Ondansetron HCl 4 mg 09/15/17 02:11 09/15/17 05:07 Zofran IVP 4 mg Q6H PRN Administration Nausea &/or vomiting Pantoprazole Sodium 40 mg 09/18/17 21:00 09/21/17 09:11 Protonix Iv IVP 40 mg BID KENN Administration Pantoprazole Sodium 40 mg 09/21/17 17:00 Protonix Tab PO ACBID KENN Potassium Chloride 20 meq 09/19/17 08:00 K-Dur 20 Meq Tablet PO BIDWM KENN Potassium Chloride 20 meq 09/19/17 08:45 09/19/17 10:12 K-Dur 20 Meq Tablet PO 09/19/17 08:46 20 meq O ONE Administration Potassium Chloride 40 meq 09/19/17 08:51 09/19/17 09:00 K-Dur 20 Meq Tablet PO 40 meq BIDWM [facility] Administration Potassium Chloride 40 meq 09/19/17 21:00 09/21/17 09:11 K-Dur 20 Meq Tablet PO 40 meq BID KENN Administration Prochlorperazine Edisylate 10 mg 09/15/17 10:33 09/20/17 01:18 Compazine Iv IVP 10 mg Q6H PRN Administration Nausea &/or vomiting Rivaroxaban 20 mg 09/20/17 17:30 09/20/17 17:42 Xarelto PO 20 mg WS [facility] Administration Senna/Docusate Sodium 2 tab 09/21/17 21:00 Senna Plus Tablet PO BID KENN Sodium Chloride 10 - 80 ml 09/14/17 21:29 09/21/17 09:12 Iv Flush IVF 20 ml PRN PRN Administration Flushing Vancomycin HCl 1 each 09/16/17 20:03 09/16/17 20:30 Pharmacy Consult - Vancomycin MC 09/16/17 20:04 1 each O ONE Administration Results 09/21/17 04:31 09/21/17 04:31 Assessment and Plan - Assessment and Plan (1) UTI (urinary tract infection) Status: Resolved (2) NSTEMI (non-ST elevated myocardial infarction) Status: Resolved (3) Hypotension Status: Acute - Attestation Attestation Narrative: 09/26/17 09:41 Recommendation After examining the patient I agree with the above assessment. I am involved in the formulation of the patient's plan of care. Hospital Course Summary Disclaimer: The visit summary below is not to be considered part of the above Progress Note.
[2017-09-20] MEDS: CEFTRIAXONE 1 G in NS 100 ML IV SCH (15:19)
[2017-09-20] MEDS ORDERED: RIVAROXABAN 20 MG TABLET PO SCH (17:30)
[2017-09-20] MEDS ORDERED: MAGNESIUM OXIDE 400 MG TABLET PO ONE (17:30)
[2017-09-20] MEDS: AMIODARONE 200 MG TABLET PO SCH (18:19)
[2017-09-20] MEDS: FUROSEMIDE 40 MG TABLET PO SCH (18:19)
[2017-09-21] MEDS: ALBUTEROL/IPRATROPIUM 2.5mg-0.5mg/3ml NEB AEROSOL PRN (04:02)
[2017-09-21] MEDS: ALBUTEROL/IPRATROPIUM 2.5mg-0.5mg/3ml NEB AEROSOL SCH ×2 (06:41→10:41)
[2017-09-21] MEDS: ACETAMINOPHEN 325 MG TABLET PO SCH (09:09)
[2017-09-21] MEDS: FLUTICASONE NASAL SPRAY 50mcg EA NOSTRIL SCH (09:10)
[2017-09-21] MEDS: AMIODARONE 200 MG TABLET PO SCH (09:10)
[2017-09-21] MEDS: ASPIRIN *EC* 325 MG TABLET PO SCH (09:10)
[2017-09-21] MEDS: FUROSEMIDE 40 MG TABLET PO SCH (09:10)
[2017-09-21] MEDS: PANTOPRAZOLE 40 MG INJECTION IVP SCH (09:11)
[2017-09-21] MEDS: SALINE FLUSH 10ml SYRINGE IVF PRN (09:12)
--- NOTE | 2017-09-21 10:23 | XRay Report ---
Indication: distention, pain PROCEDURE: XR abdomen 2V: Encounter: Initial Comparison: CT abdomen dated September 16, 2017 Findings: Small pleural effusions, greater on the left. No free air identified. Minimal bowel gas overall with scattered small air-fluid levels. No abnormally dilated small or large bowel seen. Bony structures are unremarkable. Impression: Minimal overall bowel gas. Fluid-filled bowel loops cannot be excluded. .
--- NOTE | 2017-09-21 11:32 | Discharge Summary ---
Discharge Information Date of admission: 09/15/17 11:32 Anticipated date of discharge: 09/21/17 Attending Physician: Adela Downs MD Primary care physician: Patt Farah MD - Discharge Diagnosis (1) Severe sepsis Status: Acute (2) NSTEMI (non-ST elevated myocardial infarction) Status: Resolved (3) UTI (urinary tract infection) Status: Acute Severe sepsis secondary to UTI - resolved Manifestations: encephalopathy, elevated troponin, acute kidney injury UTI - E coli New onset A-fib (Not POA) NSTEMI - suspect Type II secondary to sepsis Acute Kidney injury - baseline creatinine 0.6 - resolved Metabolic acidosis - resolved Dehydration - hemoconcentration noted on presentation - resolved Encephalopathy - resolved Generalized debility secondary to acute illness Hypokalemia (Not POA) Asthma/Allergies Mild pulmonary hypertension OA GERD - Procedures Procedures: = = = = = = = = = = = = = = = = = = = = = = = = = = = = = = = = = = = = = = = = = = = = = = = = = = = = = = = = = = = DATE OF PROCEDURE September 19, 2017 REFERRING PHYSICIAN Yuan Lara MD INDICATIONS Patient is a 77-year lady who was admitted with urinary tract infection and developed atrial fibrillation this morning and was referred for cardioversion. INFORMED CONSENT Informed consent was obtained after explaining the procedure and the potential risks to the patient and who agreed to proceed with the procedure. PROCEDURE 1. DC cardioversion. Conscious sedation was performed using Versed and fentanyl. Anterior-posterior Zoll pads were applied. 360 joules of energy was delivered in synchronized manner and patient converted from atrial fibrillation to sinus rhythm. She tolerated the procedure well with no complications. IMPRESSION 1. Successful DC cardioversion of atrial fibrillation to sinus rhythm. PLAN Will keep her on antiarrhythmics to maintain sinus and start her on anticoagulation. - Laboratory Labs: 09/21/17 04:31 09/21/17 04:31 - Microbiology Microbiology 09/16/17 20:37 Peripheral/Iv Start Blood Culture - Preliminary No Growth After 4 Days 09/16/17 20:30 Peripheral/Iv Start Blood Culture - Preliminary No Growth After 4 Days - Radiology Radiology: Date of Exam: 09/14/17 PROCEDURE: CT angio pulm emboli: Findings: Pulmonary arteries: Exam is diagnostic to the subsegmental pulmonary arterial level. No filling defects identified to suggest a pulmonary embolus. Other findings: Lungs are clear. No pleural effusion or pneumothorax. Central airways are patent. No axillary or mediastinal adenopathy by CT criteria. Heart size is normal. Trace pericardial effusion. The upper abdomen shows no acute findings. Impression: No pulmonary embolus or acute intrathoracic disease process seen. = = = = = = = = = = = = = = = = = = = = = = = = = = = = = = = = = = = = = = = = = = = = = = = = = = = = = = = = = = = Date of Exam: 09/15/17 Type of Exam(s): US echo doppler complete DATE OF PROCEDURE: September 15, 2017 Left atrial dimension is normal. Left ventricle end-diastolic dimension is normal. Left ventricle wall thickness is increased. LV systolic function is normal with ejection fraction of 64%. Right atrium is normal. Right ventricle is normal. Aortic root dimension is normal. Mitral valve is morphologically normal with mild mitral regurgitation. Aortic valve is a trileaflet structure with no stenosis. Mild aortic insufficiency is present. Tricuspid valve shows mild tricuspid regurgitation with mild pulmonary hypertension with estimated pulmonary artery systolic pressure of 37. Pulmonary valve shows no pulmonary insufficiency. There is trace to small pericardial effusion with no echocardiographic evidence of tamponade. IMPRESSION 1. Normal LV systolic function with ejection fraction of 64%. 2. Concentric left ventricular hypertrophy. 3. Mild mitral regurgitation. 4. Mild aortic insufficiency. 5. Mild tricuspid regurgitation with mild pulmonary hypertension with estimated pulmonary artery systolic pressure of 37. 6. Trace to small pericardial effusion with no echocardiographic evidence of tamponade. = = = = = = = = = = = = = = = = = = = = = = = = = = = = = = = = = = = = = = = = = = = = = = = = = = = = = = = = = = = Date of Exam: 09/14/17 PROCEDURE: CHEST 2-VIEWS UPRIGHT (PA & LAT) FINDINGS: Small area of atelectasis or scarring in the left base. Lungs are otherwise clear. There is no pleural effusion or pneumothorax. The heart size, mediastinal contours and pulmonary vascularity are within normal limits. There is no significant skeletal abnormality. IMPRESSION: No pneumonia. = = = = = = = = = = = = = = = = = = = = = = = = = = = = = = = = = = = = = = = = = = = = = = = = = = = = = = = = = = = Date of Exam: 09/16/17 PROCEDURE: XR chest 2V: Findings: There are bibasilar somewhat discoid linear changes of atelectasis and /or scarring with possible small bilateral pleural effusions. There is prominence of the cardiac silhouette which may be accentuated by the AP portable technique. No definite mediastinal or hilar adenopathy. The trachea is midline. No subdiaphragmatic free air. No significant tortuosity of the descending thoracic aorta. Impression: Bibasilar nonspecific linear and discoid changes of atelectasis and/ or scarring. Follow-up to resolution is recommended. = = = = = = = = = = = = = = = = = = = = = = = = = = = = = = = = = = = = = = = = = = = = = = = = = = = = = = = = = = = Date of Exam: 09/17/17 PROCEDURE: XR chest 1V: Impression: Bibasilar atelectasis and/or pleural effusion, similar to prior exam. = = = = = = = = = = = = = = = = = = = = = = = = = = = = = = = = = = = = = = = = = = = = = = = = = = = = = = = = = = = Date of Exam: 09/20/17 PROCEDURE: CHEST 2-VIEWS UPRIGHT (PA & LAT) Impression: Stable small effusions and mild edema. = = = = = = = = = = = = = = = = = = = = = = = = = = = = = = = = = = = = = = = = = = = = = = = = = = = = = = = = = = = Date of Exam: 09/16/17 PROCEDURE: CT abdomen pelvis wo con: Findings: There are small bilateral pleural effusions with probably passive dependent atelectasis. Overall heart size is normal. There is a small pericardial effusion or pericardial thickening. The liver and spleen are unremarkable in contour. Gallbladder is mildly distended with some hyperdense debris or sludge. Adrenal glands are normal. The pancreas is uniform in contour. Adrenal glands are symmetric in size without hydronephrosis or perinephric collection. Abdominal aorta is nonaneurysmal with a few scattered calcific atherosclerotic plaques. No retroperitoneal or mesenteric adenopathy. No definite bowel distention or bowel wall thickening. Pelvis: The urinary bladder is not distended. There is moderate edema in the presacral space. There is a small amount of free fluid in the pelvic cul-de- sac. The uterus is surgically absent. No definite bony destructive process. There is moderate degenerative disc disease of the lower lumbar spine with vacuum phenomenon. Impression: Moderate perirectal edema including presacral edema with a small amount of ascites in the pelvic cul-de-sac. A postcontrast CT is recommended if symptoms persist. Hyperdense material in the gallbladder suggesting stones or sludge. = = = = = = = = = = = = = = = = = = = = = = = = = = = = = = = = = = = = = = = = = = = = = = = = = = = = = = = = = = = Date of Exam: 09/18/17 PROCEDURE: US gall bladder: Findings: Hepatic parenchyma is homogeneous without evidence for focal mass. The gallbladder shows echogenic sludge without shadowing stones. Normal wall thickness. Sonographic Cox sign was negative. Both the intra and extrahepatic biliary system are of normal caliber with the common duct measuring 3 mm in dimension. Visualized portions of the head and body of the pancreas are unremarkable. The right kidney is present without collecting system dilatation. The right kidney measures 11.1 cm in length. Small amount of ascites. Impression: Gallbladder sludge without findings of cholelithiasis or acute cholecystitis. = = = = = = = = = = = = = = = = = = = = = = = = = = = = = = = = = = = = = = = = = = = = = = = = = = = = = = = = = = = Date of Exam: 09/21/17 PROCEDURE: XR abdomen 2V: Findings: Small pleural effusions, greater on the left. No free air identified. Minimal bowel gas overall with scattered small air-fluid levels. No abnormally dilated small or large bowel seen. Bony structures are unremarkable. Impression: Minimal overall bowel gas. Fluid-filled bowel loops cannot be excluded. History of Present Illness HPI: 77 yo F with PMH of GERD and Knee replacement in 2017 presented to the ED with reports of increased weakness of the past 2-3 days. She reports it started on Sunday with generalized body aches and weakness, it progressively got worse. She also reports SOA and increased use of her albuterol inhaler. She was seen yesterday in clinic and told she most likely had a viral URI. Her symptoms continued to get worse so she came to the ED. She did have a fever earlier today , but has taken Tylenol and now is afebrile. She feels like her heart is beating quickly and feels like she is lightheaded when she stands. No injury or other illness noted. She was found to have a UTI and be dehydrated in the ED. She had a critical troponin, and EKG was NSR. Cardiology consulted, thought secondary to URI and dehydration. Recommended admission for fluids and monitoring. Objective Vital signs: Temperature 98.1 F 09/21/17 08:33 Pulse Rate 85 09/21/17 08:19 Respiratory Rate 18 09/21/17 10:41 Blood Pressure 135/70 09/21/17 08:19 Pulse Oximetry 97 09/21/17 10:41 Rhythm: Atrial Fibrillation with Normal Ventricular Rate Height/Weight/BMI: Weight 75.6 kg - Constitutional Present: mild distress, well nourished, well developed, thin - Routine HEENT Exam Head: Present: normocephalic Eye: Present: PERRL. Absent: conjunctival icterus, scleral injection - Routine Respiratory Exam Present: diminished air movement (b/l bases) - Routine Cardiovascular Exam Present: RRR, S1, S2 - Routine Abdominal Exam Present: tenderness (generalized upper abdominal tenderness), distended - Routine Extremities Exam Present: edema - Routine Skin Exam Present: intact, dry, warm - Routine Neurological Exam Present: alert, oriented X3, CN II-XII intact, moving all extremities, normal speech - Routine Psychiatric Exam Present: normal thought process, cooperative Hospital Course This is a general summary of the patient's hospital course. For more details refer to the complete medical record. Hospital course: 09/15/17 - ADMITTED, INPATIENT STATUS DX: severe sepsis secondary to UTI, NSTEMI Ceftriaxone started for urinary coverage Consulted Dr Brady [facility] for hypotension/dehydration/YURIY/severe sepsis Clear liquid diet due to decreased oral drive, advance as able. 09/16/17 Urine culture growing E. coli Continue IVF of NS at 100c/hr as oral drive decreased. Creatinine improving with IVF - YURIY resolving. Transferred to medical floor on tele. 09/17/17 E. coli UTI sensitive to ceftriaxone. CT ab/pelvis showing GB sludge - US GB showing sludge, but no inflammation. Decrease with IVF of NS to 75cc/hr. 09/18/17 K decreased to 2.8 - replaced. Increased abdominal sx - Protonix changed to IV BID. LFTs have been intermittently mildly elevated. 09/19/17 New onset A-fib; cardiology aware -- Cardioverted to NSR. Amiodarone ordered. Metoprolol tartrate 25 mg BID also started. K decreased again to 2.7 - 40 Meq BID plus IV K boluses x4. Repeat BMP after treatment showing increase of potassium to 3.8. Continue BID Protonix for GI protection. Encourage bowel motivation with Dulcolax. Remains on liquids. 09/20/17 Weight trending up (+8kg), + fluid balance, increased SOA, increased O2 needs, decreased air movement b/l bases -- CXR showed mild edema and small effusions. Stopped IVF and Lasix 40 mg daily was started. ASA dc'd and Xarelto initiated for anticoagulation. K 3.6. Cont KDur. WBC 6.7; afebrile. 09/21/17 Ongoing abdominal pain - Abd xray neg for ileus/obstruction. Consider SBFT on . Continue PPI & bowel motivation. Day #7 of Rocephin for E. coli UTI. Remains in sinus; cont Xarelto and amiodarone Medically stable for transfer to IRU. Recommend consulting Dr. Brady. Monitor K closely, especially while on Lasix. Will need Rx for amiodarone, metoprolol tartrate, protonix (vs continue home prilosec), Xarelto at time of dc from IRU. It's too early to determine Lasix duration. Time spent with patient: discharge greater than 30 minutes Resuscitation Status: Full Code Discharge Plan - Discharge Disposition Discharge Date: 09/21/17 Disposition: 63 To [facility] *Condition: Stable Reason For Visit (Visit label in EMR): Severe sepsis secondary to E. coli UTI, NSTEMI - Discharge Medications *Discharge Medications: Continue Azelastine HCl 2 spray NS DAILY #0 Albuterol Sulfate [Ventolin Hfa] 2 puff INH Q4-6H PRN #0 PRN Reason: Wheezing DiphenhydrAMINE [Benadryl] 1 cap PO Q6H PRN PRN Reason: Allergy Symptoms Omeprazole [Prilosec] 1 cap PO ACB Melatonin/Pyridoxine HCl (B6) [Melatonin 10 mg Tablet] 1 - 2 tab PO HS PRN PRN Reason: Sleep Acetaminophen [Tylenol] 650 mg PO QID tab Fluticasone Nasal [place] [Flonase] 2 spray NS DAILY #0 Discontinued Aspirin *EC* [Ecotrin] 325 mg PO BID #84 tab - Discharge Packet/Instructions *Diet: Low fat, 2 g low sodium *Activity: Per attending in IRU *Pain Management/Treatment: Tylenol if needed *Wound Care: NA *Expected Signs/Symptoms: Abdominal discomfort/bloating, weakness, fatigue *Notify Physician if: Chest pain, difficulty breathing, dizziness or passing out , abdominal pain, vomiting/diarrhea, fever, stroke-like symptoms, or any new concern *During Business Hours Contact: Call your RN while on IRU *After Business Hours Contact: Call your RN while on IRU *Pending Lab/Results: No Pending Lab - IRU/GEN Discharge/Transfer - Referrals/Follow Up *Referrals/Follow Up: Patt Farah MD [Primary Care Provider] - - Patient Handouts - Dismissal Complete Discharge Instructions are:: Complete Physician Narrative - Narrative Physician: Adela Downs MD Attestation Narrative: Date: 09/21/17 Time: 1540 I have independently evaluated and examined this patient. I reviewed the chart, the patient's history, and the SPORTS PHYSIOLOGIST/PA's documented findings as above. We discussed and formulated the assessment and plan as above with additions as below: Mrs. Osorio was seen with her at bedside late this morning. She described discomfort/bloated feeling in the epigastrium which is been present since admission and is not worse but has not gone away. The discomfort is most notable at night when she is supine and may improve when she eats and stands. It is distinctly different than the heartburn she's experienced in the past and for which she chronically takes omeprazole. She is having bowel movements but reports they're very small and her appetite is poor after eating virtually nothing the first 4-5 days she was hospitalized. She describes early satiety with small amounts of food. Examination reveals the patient to be alert and in no acute distress; respirations are nonlabored with decreased airflow especially at the left base. Regular cardiac rhythm-telemetry strips reviewed-sinus rhythm. The abdomen is soft with mild tenderness on palpation in the epigastrium and mid abdomen but no guarding is present; there does not appear to be tenderness along the liver margin and Cox sign is negative. Transaminases have been modestly elevated throughout the hospitalization with minor fluctuation but prior imaging of the abdomen by CT and gallbladder sonogram was nonrevealing other than perirectal edema/presacral edema and moderate amount of ascites in the pelvic cul-de-sac in addition to gallbladder sludge. In general patient is making progress with respect to atrial fibrillation/rate control and urinary tract infection adequately controlled with current treatment. Ongoing GI symptoms of uncertain etiology but history suggests possible gastroparesis. Bowel stimulant added, may require small bowel follow-through study early next week if no improvement with increased activity. Stable to discharge to IRU to continue recovery/strengthening.
[2017-09-21 12:16] VITALS: BP 148/83; PULSE 80; RESP 12; TEMP 97.8; O2SAT 94
[2017-09-21] MEDS ORDERED: PANTOPRAZOLE 40 MG TABLET PO SCH (17:00)
[2017-09-21] MEDS ORDERED: SENNA + DOCUSATE TABLET PO SCH (21:00)
== END 2017-09-21 12:45 | DRG 871 ==
LOC: CCU 21:08 → ED 21:08 → SUATTDRO 09-15 02:10 → CCU 09-15 02:10 → SUATTDRO 09-15 11:32 → MED 09-16 14:21
PROVIDERS: ADMIT Hospitalist; ATTEND Internal Medicine

== ENCOUNTER 2017-09-21 12:58 | Inpatient (IN) ==
[2017-09-21] MEDS ORDERED: ONDANSETRON 4 MG/2 ML INJECTION IVP PRN (13:17)
[2017-09-21] MEDS ORDERED: PROCHLORPERAZINE 10 MG/2 ML INJECTION IVP PRN (13:17)
[2017-09-21] MEDS ORDERED: ALBUTEROL/IPRATROPIUM 2.5mg-0.5mg/3ml NEB AEROSOL PRN (13:17)
[2017-09-21] MEDS ORDERED: MAG-AL + SIM ORAL LIQUID 30ml PO PRN (13:17)
[2017-09-21] MEDS ORDERED: BISACODYL 10 MG SUPPOSITORY RECTALLY PRN (13:17)
[2017-09-21] MEDS ORDERED: DiphenhydrAMINE 25 MG CAPSULE PO PRN (13:17)
--- NOTE | 2017-09-21 13:43 | Cardiology Consult Note ---
<Gabi Dawn Davin - Last Filed: 09/21/17 15:22> History of Present Illness Consult date: 09/21/17 Requesting physician: Yeni Schneider Consult reason: atrial fibrillation Chief complaint: weakness History of present illness: Daniela is a 77 year old female who is known to Dr. Brady with history of TIA, GERD, osteoarthritis, and recent URI who is admitted to IRU today from acute care at [facility] where she was treated for severe sepsis and NSTEMI, type II secondary to E. coli UTI, and new onset atrial fibrillation. She underwent synchronized direct current cardioversion on 09/19/17 and was initially converted to SR, to later convert back to A Fib. She was started on Amiodarone and later converted to SR. She has tolerated antiarrhythmic therapy and anticoagulation well. Dr. Brady is consulted for further evaluation and management and we appreciate the consult. [facility] Patient Stated Medical History Transient Ischemic Attacks ( Yes: patient states about 4-5 years ago, no TIA) deficits Sleep Apnea No Other Respiratory Yes: Seasonal allergies Gastroesophageal Reflux Yes Disease Hx Incontinence Yes Hx Urinary Tract Infection Yes Osteoarthritis Yes Clinic Medical History (Last Reviewed 12/18/16 @ 11:46 by ROSI Campo) Osteoarthritis (Acute Medical) Cataract (Chronic Medical) GERD (gastroesophageal reflux disease) (Chronic Medical) TIA (transient ischemic attack) (Resolved Medical) Surgical History: Rt TKA 11-07-16, Lt TKA, Sinus surg, hysterectomy Family History: Family History (Last Reviewed 12/18/16 @ 11:46 by ROSI Campo) Mother Congestive heart failure Arthritis Father Stroke Arthritis Paternal Grandmother Stomach cancer Paternal Grandfather Heart attack - Social History Smoking status: Never smoker Substance use type: does not use Alcohol intake frequency: does not drink Household members: spouse Current occupational status: retired Current residence: Apartment/Private Home Medications Home Medications Medication Instructions Recorded Confirmed Type Albuterol Sulfate [Ventolin Hfa] 2 puff INH Q4-6H PRN #0 06/14/15 09/26/17 History Azelastine HCl 2 spray NS DAILY #0 06/14/15 09/26/17 History Fluticasone Nasal [place] [Flonase] 2 spray NS DAILY #0 06/14/15 09/26/17 History DiphenhydrAMINE [Benadryl] 1 cap PO Q6H PRN 10/30/16 09/26/17 History Omeprazole [Prilosec] 1 cap PO ACB 10/30/16 09/26/17 History Melatonin/Pyridoxine HCl (B6) 1 - 2 tab PO HS PRN 11/06/16 09/26/17 History [Melatonin 10 mg Tablet] Acetaminophen [Tylenol] 650 mg PO QID tab 11/08/16 09/26/17 Rx Amiodarone [Pacerone] 200 mg PO DAILY #30 tab 09/25/17 09/26/17 Rx Furosemide [Lasix 40 mg Tab] 40 mg PO 0900,1700 #30 tab 09/25/17 09/26/17 Rx Metoprolol Tartrate [Lopressor] 50 mg PO BIDWM #60 tab 09/25/17 09/26/17 Rx PEG 3350 17gm PACKET [Miralax] 17 gm PO DAILY packet 09/25/17 09/26/17 Rx Potassium Chloride [K-DUR 20 mEq 40 meq PO BIDBS #60 tab 09/25/17 09/26/17 Rx Tablet] Rivaroxaban [Xarelto] 20 mg PO WS #30 tab 09/25/17 09/26/17 Rx Senna + Docusate [Senna Plus 2 tab PO BID tab 09/25/17 09/26/17 Rx Tablet] Allergies Allergy/AdvReac Type Severity Reaction Status Date / Time amoxicillin Allergy Unknown RASH,HIVES Verified 09/26/17 01:32 Assessment and Plan - Assessment and Plan (1) NSTEMI (non-ST elevated myocardial infarction) Status: Resolved Likely type II due to acute illness - Denies chest pain - No ischemic EKG changes - Will continue to monitor (2) Overweight (BMI 25.0-29.9) Status: Acute (3) PAF (paroxysmal atrial fibrillation) Status: Chronic Continue Amiodarone for antiarrhythmic therapy - Continue Xarelto for stroke prevention - monitor cardiac telemetry - Assessment and Plan PAF (paroxysmal atrial fibrillation) Current visit: No Status: Chronic Continue Amiodarone for antiarrhythmic therapy - Continue Xarelto for stroke prevention - monitor cardiac telemetry NSTEMI (non-ST elevated myocardial infarction) Current visit: No Status: Resolved Likely type II due to acute illness - Denies chest pain - No ischemic EKG changes - Will continue to monitor Overweight (BMI 25.0-29.9) Current visit: No Status: Acute Thank you for allowing us to participate in the care of this patient, we will follow along with you. Hospital Course Summary Disclaimer: The visit summary below is not to be considered part of the above Progress Note. <NorafigueroaashokFernando - Last Filed: 09/27/17 10:38> [facility] Patient Stated Medical History Transient Ischemic Attacks ( Yes: patient states about 4-5 years ago, no TIA) deficits Cataracts Yes Glaucoma Yes Cardiac Arrhythmia Yes: Hx A-fib with RVR Sleep Apnea No Other Respiratory Yes: Seasonal allergies Gastroesophageal Reflux Yes Disease Hx Incontinence Yes Hx Urinary Tract Infection Yes Anemia Yes: as a child Osteoarthritis Yes Sepsis Yes: 2018 Depression Yes: pt feels Clinic Medical History (Last Reviewed 09/22/17 @ 20:05 by Adela Downs MD ) Osteoarthritis (Acute Medical) Cataract (Chronic Medical) GERD (gastroesophageal reflux disease) (Chronic Medical) TIA (transient ischemic attack) (Resolved Medical) Family History: Family History (Last Reviewed 12/18/16 @ 11:46 by ROSI aCmpo) Mother Congestive heart failure Arthritis Father Stroke Arthritis Paternal Grandmother Stomach cancer Paternal Grandfather Heart attack Exam Vital signs: Temperature 98.4 F 09/25/17 16:00 Pulse Rate 64 09/25/17 16:00 Respiratory Rate 16 09/25/17 16:00 Blood Pressure 149/72 H 09/25/17 16:00 Pulse Oximetry 94 09/25/17 16:00 Results 09/22/17 03:54 09/25/17 08:45 Assessment and Plan - Attestation Attestation Narrative: 09/27/17 10:37 Recommendation After examining the patient I agree with the above assessment. I am involved in the formulation of the patient's plan of care. - Assessment and Plan (1) Overweight (BMI 25.0-29.9) Status: Acute (2) NSTEMI (non-ST elevated myocardial infarction) Status: Resolved (3) PAF (paroxysmal atrial fibrillation) Status: Chronic Hospital Course Summary Disclaimer: The visit summary below is not to be considered part of the above Progress Note.
[2017-09-21 14:30] VITALS: BMI 26.0
[2017-09-21] MEDS ORDERED: CEFTRIAXONE 1 G in NS 100 ML IV SCH (15:00)
--- NOTE | 2017-09-21 15:55 | IRU History & Physical Report ---
[facility] IRU Date: Date: 09/21/17 Time: 1551 Chief complaint: weakness, debility HPI: Mrs. Montalvo is a 77-year-old female who presented to the ED on 09/14/2017 with reports of progressive weakness, confusion and generalized aching over the 2-3 days prior to her presentation. In the ER she was diagnosed with dehydration, UTI/AK I with a creatinine of 1.3, NSTEMI with a troponin of 0.835, metabolic acidosis, encephalopathy and severe sepsis. She was admitted to the CCU for ongoing treatment. She was started on IV ceftriaxone and IV fluid resuscitation. Dr. Davin Erazo and his team were consulted. Next Patient stabilized and was then transferred to the medical floor on 09/16/2017, but continued to intermittently report substernal chest discomfort and mild nausea which limited her to a clear liquid diet. 09/19 telemetry demonstrated new onset atrial fibrillation. Troponin was 0.022 at that time. Her potassium was also critically low at 2.6, despite attempts at oral replacement. IV supplementation was then ordered. Next 09/20 found patient continuing to feel short of breath with coughing which was occasionally productive. Telemetry at that time reflected atrial fibrillation. The patient complained of feeling unsteady on her feet fear of falling as well as feeling tightness related to increased swelling in her arms and legs. Next 09/21 patient is continuing to require close medical management. She is progressing with both physical and occupational therapy, she can tolerate 3 hours of daily therapy and will likely discharge home to the community with her . She could certainly benefit from an IRU admission. Preadmission patient was fully independent with all ADLs, she was moderately independent with stairs. At this time she is independent with eating, requires supervision with grooming and dressing her upper extremities and toileting. She requires moderate assist with dressing her lower extremities. She requires minimal assist with bathing, bed/chair transfers and toilet transfers, walking. She is currently using a rolling walker as an assistive device and can walk 250 feet, she was previously independent with walking. She is moderately independent with expression, social interaction, problem solving, and memory. Per OT patient is requiring extended periods of time to complete her ADLs due to her fatigue. She is very cooperative with both PT and OT. [facility] Patient Stated Medical History Transient Ischemic Attacks ( Yes: patient states about 4-5 years ago, no TIA) deficits Sleep Apnea No Other Respiratory Yes: Seasonal allergies Gastroesophageal Reflux Yes Disease Hx Incontinence Yes Hx Urinary Tract Infection Yes Osteoarthritis Yes Clinic Medical History (Last Reviewed 12/18/16 @ 11:46 by ROSI Campo) Osteoarthritis (Acute Medical) Cataract (Chronic Medical) GERD (gastroesophageal reflux disease) (Chronic Medical) TIA (transient ischemic attack) (Resolved Medical) Surgical History: Rt TKA 11-07-16, Lt TKA, Sinus surg, hysterectomy Family History: Family History (Last Reviewed 12/18/16 @ 11:46 by ROSI Campo) Mother Congestive heart failure Arthritis Father Stroke Arthritis Maternal Grandmother Stomach cancer Maternal Grandfather Heart attack Family History Updates: Family history and EMR was corrected as per patient's report to show that it was her maternal grand mother with stomach cancer and her maternal grandfather with a heart attack, previously both stated as paternal. - Social History Smoking status: Never smoker Substance use type: does not use Alcohol intake frequency: does not drink [place] [facility] [place] own home) Household members: spouse ( 56 years) Current occupational status: retired Current residence: Apartment/Private Home Review of Systems - Constitutional Constitutional: Present: fatigue, weakness, weight gain. Absent: fever(s), night sweats - EENMT Eyes: Absent: blurry vision, change in vision, diplopia Mouth/Throat: Absent: changes in swallowing, painful swallowing, change in taste , bleeding gums, change in voice - Cardiovascular Cardiovascular: Present: edema. Absent: chest pain, palpitations, dyspnea on exertion, orthopnea Rhythm: Present: regular rhythm Vascular: Present: pedal edema - Respiratory Respiratory: Present: cough. Absent: dyspnea - Gastrointestinal Gastrointestinal: Present: abdominal pain, change in bowel habits, constipation. Absent: nausea - Genitourinary Menstruation: post hysterectomy - Musculoskeletal Musculoskeletal: Present: muscle weakness, myalgias. Absent: abnormal gait, arthralgias, back pain, joint swelling, limited range of motion, muscle cramps - Integumentary/Breasts Integumentary: Absent: alopecia, erythema, lesions, pruritus, rash, jaundice - Neurological Neurological: Absent: abnormal gait, abnormal movements, abnormal speech, confusion, convulsions, dizziness, focal weakness, frequent falls, headache(s), loss of vision, memory loss, numbness, paresthesias, tremor(s) Neurological Comments: Thought processes slower than usual, but otherwise within normal limits - Psychiatric Psychiatric: Absent: abnormal sleep pattern, anxiety, depression - Endocrine Endocrine: Absent: cold intolerance, flushing, heat intolerance, palpitations - Hematologic/Lymphatic Hematologic/Lymphatic: Absent: easy bleeding, easy bruising, lymphadenopathy - Allergic/Immunologic Allergic/Immunologic: Absent: urticaria Medications Home Medications Medication Instructions Recorded Confirmed Type Albuterol Sulfate [Ventolin Hfa] 2 puff INH Q4-6H PRN #0 06/14/15 09/21/17 History Azelastine HCl 2 spray NS DAILY #0 06/14/15 09/21/17 History Fluticasone Nasal [place] [Flonase] 2 spray NS DAILY #0 06/14/15 09/21/17 History DiphenhydrAMINE [Benadryl] 1 cap PO Q6H PRN 10/30/16 09/21/17 History Omeprazole [Prilosec] 1 cap PO ACB 10/30/16 09/21/17 History Melatonin/Pyridoxine HCl (B6) 1 - 2 tab PO HS PRN 11/06/16 09/21/17 History [Melatonin 10 mg Tablet] Acetaminophen [Tylenol] 650 mg PO QID tab 11/08/16 09/21/17 Rx Allergies Allergy/AdvReac Type Severity Reaction Status Date / Time amoxicillin Allergy Unknown RASH,HIVES Verified 09/14/17 21:23 Results IRU - Labs Labs: Laboratory Tests 09/20/17 09/21/17 09/21/17 05:40 04:31 04:31 WBC 6.3 RBC 4.26 Hgb 13.0 Hct 38.7 MCV 90.8 MCH 30.5 MCHC 33.6 RDW Std Deviation 48.9 Plt Count 309 MPV 10.0 Neutrophils % (Manual) 64.0 Band Neutrophils % 2.0 Reactive Lymphs % 1.0 H Eosinophils % (Manual) 1.0 Neutrophils # (Manual) 4.0 Band Neutrophils # 0.1 Lymphocytes # (Manual) 2.0 Abs React Lymphs (Man) 0.1 H Eosinophils # (Manual) 0.1 RBC Morph Comment Normal Turbidity < 20 Sodium 144 Potassium 3.5 L Chloride 102 Carbon Dioxide 30 Anion Gap 12 BUN 6.0 L Creatinine 0.6 L GFR Calculation 97 BUN/Creatinine Ratio 10 Glucose 106 Calculated Osmolality 275 Calcium 8.3 L Magnesium 1.7 Total Bilirubin 0.50 Icterus Index < 2 AST 46 H ALT 54 H Alkaline Phosphatase 94 Total Protein 6.0 L Albumin 3.2 L Globulin 2.8 Albumin/Globulin Ratio 1.1 Specimen Hemolysis < 15 Stl Cyclospora species Negative Stool Rotavirus A PCR Negative Stool Adenovirus (PCR) Negative Stool Astrovirus (PCR) Negative Stool Campylobacter PCR Negative Stl C.difficile Tox PCR Negative Stool Cryptosporidium PCR Negative Stl E.coli Shiga Toxins Negative Stl Enterotoxigenic E PCR Negative Stool EPEC (PCR) Negative Stool EAEC (PCR) Negative Stool Entamoeba (PCR) Negative Stool Giardia Lamblia PCR Negative Stool Salmonella PCR Negative Stool Sapovirus (PCR) Negative Stl P. shigelloides PCR Negative Stl Shigella/EIEC PCR Negative St Y.enterocolitica PCR Negative Stool Vibrio (PCR) Negative Stl Vibrio cholera PCR Negative Stl Norovirus GI/GII PCR Negative Exam Vital Signs: Temperature 97.5 F 09/21/17 13:17 Pulse Rate 75 09/21/17 15:09 Respiratory Rate 16 09/21/17 13:17 Blood Pressure 152/84 H 09/21/17 13:17 Pulse Oximetry 96 09/21/17 13:17 Height/Weight/BMI: Height 1.7 m Weight 75.5 kg Body Mass Index 26.0 - Constitutional Present: no acute distress, well nourished, well developed, average body habitus , cooperative - Routine HEENT Exam Head: Present: normocephalic, atraumatic. Absent: cushingoid faces, abrasion, laceration, hematoma Eye: Present: EOMI, PERRL. Absent: conjunctival icterus, scleral injection, periorbital swelling, nystagmus ENT: Present: mucous membranes moist, oropharynx clear - Routine Neck Exam Present: supple, full ROM, trachea midline. Absent: lymphadenopathy, thyromegaly, tenderness, swelling - Routine Chest/Breast/Axilla Exam Chest wall: Absent: tenderness, mass Axillae: Absent: lymphadenopathy, mass - Routine Respiratory Exam Present: CTA bilaterally. Absent: accessory muscle use, decreased breath sounds , prolonged expiratory phase, rales, respiratory distress, rhonchi, stridor, wheezes, crackles, distant breath sounds - Routine Cardiovascular Exam Present: RRR, S1, S2. Absent: gallop, S3, S4, click, irregular rhythm - Routine Abdominal Exam Present: soft, normoactive bowel sounds, tenderness (diffuse), non distended. Absent: rebound, guarding, firm, rigid, organomegaly, mass, hernia, wound - Routine Extremities Exam Present: edema (1+ BLE), full ROM. Absent: cyanosis, clubbing, calf tenderness , palpable cord, Liz's sign - Routine Skin Exam Present: intact. Absent: erythema, mottling - Routine Neurological Exam Present: alert, oriented X3, CN II-XII intact, moving all extremities, normal speech - Routine Psychiatric Exam Present: normal affect, normal thought process, cooperative, good insight, good judgment. 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 coli UTI requiring a seven-day inpatient hospitalization which also included a NSTEMI type II, new onset atrial fibrillation requiring synchronized direct current cardioversion followed by chemical cardioversion with amiodarone. Appreciate the assistance of the hospitalist and Dr. Davin Erazo while patient is here on the inpatient rehabilitation unit. - Interventions to Obtain Goals PT Treatment Plan: Balance/Proprioception, Functional Activities, Gait Training , Patient/Family Education, Therapeutic Exercise OT Treatment Plan: ADL (Basic Care), Balance Training, IADL, Pt./Family Education, Ther. Exercise for ADL
--- NOTE | 2017-09-21 16:45 | IRU 24Hr Post Admit Eval ---
24 Hr Post Admission Physical - Relevant Changes Relevant Changes: No Reviewed: I have reviewed the patient's information and concur with the finding and results of the pre-admission screen. Certification: I certify the patient for rehabilitation. - Patient Condition (1) Debility Status: Acute Code(s): R53.81 - Other malaise Classification: Present on IRF Admission (2) Myopathy Status: Acute Code(s): G72.9 - Myopathy, unspecified Classification: Present on IRF Admission (3) Severe sepsis Status: Resolved Code(s): A41.9 - Sepsis, unspecified organism; R65.20 - Severe sepsis without septic shock Classification: Diagnosis Requiring Medical Follow Up (4) UTI (urinary tract infection) Status: Acute Code(s): N39.0 - Urinary tract infection, site not specified Classification: Present on IRF Admission (5) PAF (paroxysmal atrial fibrillation) Status: Chronic Code(s): I48.0 - Paroxysmal atrial fibrillation Classification: Present on IRF Admission (6) NSTEMI (non-ST elevated myocardial infarction) Status: Resolved Code(s): I21.4 - Non-ST elevation (NSTEMI) myocardial infarction Classification: Diagnosis Requiring Medical Follow Up (7) Primary osteoarthritis of right knee Status: Chronic Code(s): M17.11 - Unilateral primary osteoarthritis, right knee Classification: Present on IRF Admission, Diagnosis Requiring Medical Follow Up - Prior Functional Status Lives With: Spouse Residence Type: Apartment/Private Home Assitive Devices: None Prior Functional Status: Indep. at home or school, Used no assistive device, Indep. w/ all home ADL, Indep. w/ IADL - Current Functional Status Current Level of Function: Patient currently requires supervision with grooming, dressing upper extremities and toileting. She requires minimal assist with basic bathing, transfers to bed and chair, toilet transfers and walking. She requires moderate assist with dressing lower extremities and is moderately independent with comprehension expression Pedraza Edison interaction problem solving and memory area and she is currently using a rolling walker and able to walk 250 feet. He is independent with eating. Failed Alternative Therapy: Arrived from Acute Care Patient Requirements: The patient requires oversight by rehabilitation physician to manage their rehabilitation treatment plan and multidisciplinary approach to care that can only be provided in an IRF and requires a multidisciplinary approach to care, provided by professional PTs, OTs, STs, dieticians, RTs, rehabilitation nurses and is not available in lesser levels of care. Limitations Req: Mobility Impairment, ADL Impairment, Limited Mobility Physical Therapy Minutes: 90 Occupational Therapy Minutes: 90 Therapy: The patient is to receive therapy at least 5 days a week. 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 coli UTI, new onset paroxysmal atrial fibrillation, recent non-STEMI type II, and underlying osteoarthritis. She requires a multidisciplinary approach with PT, OT and medical supervision.
[2017-09-21] MEDS: ALBUTEROL/IPRATROPIUM 2.5mg-0.5mg/3ml NEB AEROSOL SCH ×2 (16:54→21:07)
--- NOTE | 2017-09-21 17:02 | IRU Plan of Care ---
U Overall Plan of Care - Patient Impairments (1) Debility Code(s): R53.81 - Other malaise Status: Acute Classification: Present on IRF Admission (2) Myopathy Code(s): G72.9 - Myopathy, unspecified Status: Acute Classification: Present on IRF Admission (3) Severe sepsis Code(s): A41.9 - Sepsis, unspecified organism; R65.20 - Severe sepsis without septic shock Status: Resolved Classification: Diagnosis Requiring Medical Follow Up (4) UTI (urinary tract infection) Code(s): N39.0 - Urinary tract infection, site not specified Status: Acute Classification: Present on IRF Admission (5) PAF (paroxysmal atrial fibrillation) Code(s): I48.0 - Paroxysmal atrial fibrillation Status: Chronic Classification: Present on IRF Admission (6) NSTEMI (non-ST elevated myocardial infarction) Code(s): I21.4 - Non-ST elevation (NSTEMI) myocardial infarction Status: Resolved Classification: Diagnosis Requiring Medical Follow Up (7) Primary osteoarthritis of right knee Code(s): M17.11 - Unilateral primary osteoarthritis, right knee Status: Chronic Classification: Present on IRF Admission, Diagnosis Requiring Medical Follow Up - Relevant Changes Relevant Changes: No Reviewed: I have reviewed the patient's information and concur with the finding and results of the pre-admission screen. Certification: I certify the patient for rehabilitation. - Medical Prognosis Medical Prognosis: Good Vital Signs: Last Vital Signs Temp 97.5 F 09/21/17 13:17 Pulse 75 09/21/17 15:09 Resp 16 09/21/17 13:17 BP 152/84 H 09/21/17 13:17 Pulse Ox 96 09/21/17 13:17 - Anticipated Interventions Anticipated Interventions: The patient requires inpatient IRF care for PT, OT, and/or ST for residuals remaining from [disuse myopathy] resulting in muscular weakness and strength deficits. - Current Functional Status Failed Alternative Therapy: Arrived from Acute Care Patient Requires: The patient requires oversight by rehabilitation physician to manage their rehabilitation treatment plan and multidisciplinary approach to care that can only be provided in an IRF and requires a multidisciplinary approach to care, provided by professional PTs, OTs, STs, rehabilitation nurses, and may require STs, dieticians, and RTS. This is not available in lesser levels of care. Physical Therapy Minutes: 90 Occupational Therapy Minutes: 90 Therapy: The patient is to receive therapy at least 5 days a week. - Anticipated LOS/Outcomes Anticipated Functional Outcome: It is anticipated that the patient will be able to return home at modified independent level of function Anticipated Length of Stay (days): 7 Anticipated DC Destination: Home, Self Care, Home Health Service Home Safety Plan: The patient will be provided with the development of a Home Safety Plan for return to a home or home-like environment and and to ensure safety post discharge. - Plan to Avoid Complications Barriers to Attaining Goals: Weakness, Balance, Endurance, Medical Limitation Plan to Avoid Complications: The patient cannot receive this care in a lesser intensive setting such as [facility] or Outpatient Therapy due to the patient requiring the following : This patient requires close medical monitoring of her cardiac status, Dr. Brady and his team will continue to follow her while she is here in the rehabilitation unit. She also requires ongoing IV antibiotic treatment for her urinary tract infection they require 24-hour rehabilitation nursing monitoring and assessment of palpitations, chest pain and edema. They require a multidisciplinary approach with PT, OT and medical supervision in view of her multiple medical issues.
[2017-09-21] MEDS: PANTOPRAZOLE 40 MG TABLET PO SCH (17:26)
[2017-09-21] MEDS: RIVAROXABAN 20 MG TABLET PO SCH (17:26)
[2017-09-21] MEDS: SENNA + DOCUSATE TABLET PO SCH (21:25)
[2017-09-21] MEDS: SALINE FLUSH 10ml SYRINGE IVF PRN (21:27)
[2017-09-22] MEDS: PANTOPRAZOLE 40 MG TABLET PO SCH ×2 (06:12→17:12)
[2017-09-22] MEDS: ALBUTEROL/IPRATROPIUM 2.5mg-0.5mg/3ml NEB AEROSOL SCH ×3 (06:30→19:26)
[2017-09-22] MEDS: AMIODARONE 200 MG TABLET PO SCH (08:12)
[2017-09-22] MEDS: FUROSEMIDE 40 MG TABLET PO SCH (08:13)
[2017-09-22] MEDS: SENNA + DOCUSATE TABLET PO SCH ×2 (08:13→20:42)
[2017-09-22] MEDS: SALINE FLUSH 10ml SYRINGE IVF PRN ×2 (08:14→17:12)
[2017-09-22] MEDS: FLUTICASONE NASAL SPRAY 50mcg EA NOSTRIL SCH (08:15)
[2017-09-22] MEDS ORDERED: FALL RISK - PHARMACY CONSULT MC ONE (09:44)
--- NOTE | 2017-09-22 11:02 | Consult Note ---
Consult Information - Data of Consult Consult date: 09/22/17 Requesting Physician: Onel Salas MD Primary Care Provider: Patt Farah MD - Consult Narrative Reason for consult: medical management History of present illness: Daniela is a very pleasant 77 showed female who is well known to the hospitalist service from recent acute admission for severe sepsis secondary to urinary tract infection. During her acute stay. She unfortunately suffered a NSTEMI followed by new-onset atrial fibrillation. She underwent synchronized direct current cardioversion on 09/19/17 and was initially converted to SR, to later convert back to A Fib. She was started on Amiodarone and later converted to SR. She was started on the following new medications amiodarone, Toprol tartrate, Protonix, Xarelto. In the severity of her illness accompanied with significant weakness. She was screened and accepted for inpatient debilitation unit for ongoing strengthening. It is her hopes to return home independently with her . She is seen and examined this morning for initial medical consultation on IRU. She is alert, oriented and pleasant. He does continue to complain of significant lower extremity edema and swelling. Did review weights. Admission weight from 09/14 was 70 kilograms, today she is 75.5 kilograms. She denies having shortness of breath, chest pain. She feels that her abdominal discomfort has improved. She was able to eat 3/4 of her breakfast this morning. Past Medical History Medical History: Medical History (Last Reviewed 09/22/17 @ 20:05 by Adela Downs MD) Osteoarthritis Cataract GERD (gastroesophageal reflux disease) TIA (transient ischemic attack) Surgical History: Rt TKA 11-07-16, Lt TKA, Sinus surg, hysterectomy Family History: Family History Mother Congestive heart failure Arthritis Father Stroke Arthritis Paternal Grandmother Stomach cancer Paternal Grandfather Heart attack Family History: As Above - Social History Smoking status: Never smoker Substance use type: does not use Alcohol intake frequency: does not drink Housing: house Household members: spouse Current occupational status: retired Current residence: Apartment/Private Home Social history: Resides independently at home with and Garcia. Primary care provider, Dr. Patt Farah Review of Systems All systems PM: 10-point ROS was reviewed, no additional remarkable complaints except - Constitutional Constitutional: Present: fatigue - EENMT Mouth/Throat: Present: scratchy throat - Integumentary/Breasts Integumentary: Present: swelling (2+ bilateral lower extremity edema) Medications Home Medications Medication Instructions Recorded Confirmed Type Albuterol Sulfate [Ventolin Hfa] 2 puff INH Q4-6H PRN #0 06/14/15 09/21/17 History Azelastine HCl 2 spray NS DAILY #0 06/14/15 09/21/17 History Fluticasone Nasal [place] [Flonase] 2 spray NS DAILY #0 06/14/15 09/21/17 History DiphenhydrAMINE [Benadryl] 1 cap PO Q6H PRN 10/30/16 09/21/17 History Omeprazole [Prilosec] 1 cap PO ACB 10/30/16 09/21/17 History Melatonin/Pyridoxine HCl (B6) 1 - 2 tab PO HS PRN 11/06/16 09/21/17 History [Melatonin 10 mg Tablet] Acetaminophen [Tylenol] 650 mg PO QID tab 11/08/16 09/21/17 Rx Allergies Allergy/AdvReac Type Severity Reaction Status Date / Time amoxicillin Allergy Unknown RASH,HIVES Verified 09/14/17 21:23 Exam Vital Signs: Temperature 97.9 F 09/22/17 08:00 Pulse Rate 85 09/22/17 08:00 Respiratory Rate 18 09/22/17 08:00 Blood Pressure 154/75 H 09/22/17 08:00 Pulse Oximetry 96 09/22/17 08:00 Height/Weight/BMI: Height 1.7 m Weight 75.5 kg Body Mass Index 26.0 - Constitutional Present: no acute distress, well nourished, well developed - Routine HEENT Exam Eye: Present: EOMI ENT: Present: mucous membranes moist, dentition normal - Routine Respiratory Exam Present: CTA bilaterally. Absent: wheezes - Routine Cardiovascular Exam Present: RRR, S1, S2. Absent: murmur - Routine Abdominal Exam Present: soft, normoactive bowel sounds, non distended. Absent: tenderness - Routine Extremities Exam Present: edema (2+ bilateral lower extremity edema), pulses intact - Routine Skin Exam Present: intact, dry, warm - Routine Neurological Exam Present: alert, oriented X3, CN II-XII intact, moving all extremities - Routine Psychiatric Exam Present: normal affect, normal thought process, cooperative Results - Labs CBC & Chem 7: 09/22/17 03:54 09/22/17 03:54 Assessment and Plan (1) UTI (urinary tract infection) Current visit: No Status: Acute Assessment and Plan: Impression General debility secondary to acute illness Peripheral edema secondary to fluid overload Severe sepsis secondary to urinary tract infection Atrial fibrillation NSTEMI Pulmonary hypertension Hx TIA Asthma Seasonal ALLERGIES GERD Osteoarthritis Plan Agree with admission to inpatient rehabilitation unit under the care of Dr. Schneider who is covering for Dr. Salas. Patient has completed a 7 day course of IV Rocephin. Will discontinue Have nursing staff place ANDREIA hose to bilateral lower extremities. Continue on Lasix 40 milligrams daily to help with edema. Baseline admission weight 70 Kg, Today she is 75.5Kg. Monitor daily weights Continue to work on aggressive bowel motivation-schedule MiraLAX and Senna plus daily, milk of magnesia as needed. Dulcolax suppositories as needed Continue on Xarelto and aspirin for anticoagulation She does report scratchy throat from what she suspects is postnasal drip and ALLERGIES. Will resume home Claritin. Will also add Mucinex and lozenges as needed Will occasionally monitor electrolytes give diuresis and potassium supplementation. BMP ordered for sunday 09/24. The hospitalist service will continue to follow patient medically manage existing comorbidities during her stay in the IRU unit. At time of discharge, her medical care will return to her primary care provider , Dr. Patt Farah Will need Rx for amiodarone, metoprolol tartrate, Protonix (vs continue home Prilosec), Xarelto at time of dc from IRU. It's too early to determine Lasix duration. DVT Prophylaxis: Xarelto GI Prophylaxis: Protonix Resuscitation Status: Full Code - Physician Narrative Physician: Adela Downs MD Narrative: Date: 09/22/17 Time: 2004 I have independently evaluated and examined this patient. I reviewed the chart, the patient's history, and the CHIEF [employer]IO [employer]PERATOR/PA's documented findings as above. We discussed and formulated the assessment and plan as above with additions as below: Mrs. Montalvo is known from acute hospitalization. 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 Hospitalization was complicated by poor oral intake/poor appetite, mild generalized abdominal discomfort, and possible gastroparesis. She had minor transaminitis during the hospital stay which persisted at discharge. Today she reports that the abdomen is a little better and that she is eating small meals ( ordering 1/2 meals) 3 times a day without nausea or vomiting. Bowel function remains minimal with only small stools or smears of stool described by nursing. She reports that she worked with therapy for little while today but still feels weak. Past history as described above. Patient was resting comfortably when seen; she was drowsy but responds to questions appropriately Respirations nonlabored, good airflow, breath sounds clear Regular rhythm, S1-S2 Abdomen soft, mild tenderness epigastrium/midabdomen without guarding In addition to above diagnoses please add: Abdominal discomfort and transaminitis Reassess liver enzymes in 1-2 days. Continue bowel regimen, agree with addition of MiraLAX. Telemetry reviewed-sinus rhythm. Hospital Course Summary Disclaimer: The visit summary below is not to be considered part of the above Progress Note. Hospital Course: Impression General debility secondary to acute illness Peripheral edema secondary to fluid overload Severe sepsis secondary to urinary tract infection Atrial fibrillation NSTEMI Pulmonary hypertension Hx TIA Asthma Seasonal ALLERGIES GERD Osteoarthritis Plan Agree with admission to inpatient rehabilitation unit under the care of Dr. Schneider who is covering for Dr. Salas. Patient has completed a 7 day course of IV Rocephin. Will discontinue Have nursing staff place ANDREIA hose to bilateral lower extremities. Continue on Lasix 40 milligrams daily to help with edema. Baseline admission weight 70 Kg, Today she is 75.5Kg. Monitor daily weights Continue to work on aggressive bowel motivation-schedule MiraLAX and Senna plus daily, milk of magnesia as needed. Dulcolax suppositories as needed Continue on Xarelto and aspirin for anticoagulation She does report scratchy throat from what she suspects is postnasal drip and ALLERGIES. Will resume home Claritin. Will also add Mucinex and lozenges as needed Will occasionally monitor electrolytes give diuresis and potassium supplementation. BMP ordered for sunday 09/24. The hospitalist service will continue to follow patient medically manage existing comorbidities during her stay in the IRU unit. At time of discharge, her medical care will return to her primary care provider , Dr. Patt Farah Will need Rx for amiodarone, metoprolol tartrate, Protonix (vs continue home Prilosec), Xarelto at time of dc from IRU. It's too early to determine Lasix duration.
[2017-09-22] MEDS: LORATADINE 10 MG TABLET PO SCH (11:51)
[2017-09-22] MEDS: POLYETHYL GLYCOL 3350 17gm PACKET PO SCH (11:51)
[2017-09-22] MEDS: RIVAROXABAN 20 MG TABLET PO SCH (17:12)
[2017-09-22] MEDS: BENZOCAINE/MENTHOL SORE THROAT LOZENGE MM PRN (18:04)
[2017-09-23] MEDS: LORATADINE 10 MG TABLET PO SCH (06:36)
[2017-09-23] MEDS: PANTOPRAZOLE 40 MG TABLET PO SCH ×2 (06:37→17:18)
[2017-09-23] MEDS: BENZOCAINE/MENTHOL SORE THROAT LOZENGE MM PRN (06:43)
[2017-09-23] MEDS: GUAIFENESIN 400MG TABLET PO PRN (06:47)
[2017-09-23] MEDS: ALBUTEROL/IPRATROPIUM 2.5mg-0.5mg/3ml NEB AEROSOL SCH ×2 (07:40→19:36)
[2017-09-23] MEDS: SENNA + DOCUSATE TABLET PO SCH ×2 (08:17→19:59)
[2017-09-23] MEDS: POLYETHYL GLYCOL 3350 17gm PACKET PO SCH (08:17)
[2017-09-23] MEDS: SALINE FLUSH 10ml SYRINGE IVF PRN (08:21)
[2017-09-23] MEDS: FLUTICASONE NASAL SPRAY 50mcg EA NOSTRIL SCH (08:21)
[2017-09-23] MEDS: AMIODARONE 200 MG TABLET PO SCH (08:21)
[2017-09-23] MEDS: FUROSEMIDE 40 MG TABLET PO SCH (08:21)
[2017-09-23] MEDS: ACETAMINOPHEN 325 MG TABLET PO PRN ×3 (11:06→21:54)
[2017-09-23] MEDS: RIVAROXABAN 20 MG TABLET PO SCH (17:18)
[2017-09-23] MEDS: METHYL SALICYLATE/MENTHOL OINT 28gm TP PRN ×2 (19:14→21:56)
[2017-09-23] MEDS: MENTHOL COUGH DROPS (RICOLA) MM PRN (19:24)
[2017-09-24] MEDS: METHYL SALICYLATE/MENTHOL OINT 28gm TP PRN ×3 (04:57→22:27)
[2017-09-24] MEDS: MENTHOL COUGH DROPS (RICOLA) MM PRN ×2 (04:57→22:28)
[2017-09-24] MEDS: ACETAMINOPHEN 325 MG TABLET PO PRN ×4 (04:57→22:28)
[2017-09-24] MEDS: LORATADINE 10 MG TABLET PO SCH ×2 (04:59→06:20)
[2017-09-24] MEDS: PANTOPRAZOLE 40 MG TABLET PO SCH ×3 (05:00→17:13)
[2017-09-24] MEDS: ALBUTEROL/IPRATROPIUM 2.5mg-0.5mg/3ml NEB AEROSOL SCH ×2 (08:02→19:37)
[2017-09-24] MEDS: SENNA + DOCUSATE TABLET PO SCH ×2 (08:24→22:28)
[2017-09-24] MEDS: FLUTICASONE NASAL SPRAY 50mcg EA NOSTRIL SCH (08:25)
[2017-09-24] MEDS: FUROSEMIDE 40 MG TABLET PO SCH (08:25)
[2017-09-24] MEDS: AMIODARONE 200 MG TABLET PO SCH (08:26)
[2017-09-24] MEDS: POLYETHYL GLYCOL 3350 17gm PACKET PO SCH (08:26)
[2017-09-24] MEDS: SALINE FLUSH 10ml SYRINGE IVF PRN ×2 (08:31→17:11)
--- NOTE | 2017-09-24 13:46 | Progress Note ---
- Date 09/24/17 Subjective: Daniela feels much better. Her abd pain has nearly resolved. She still only eats 1/ 2 portions but she denies bloating and nausea. She has mild pain with palpation , which is improved. She denies chest pain or SOA but does have a cough. She inquires about being off tele - she understands she's been in a normal rhythm since arriving in IRU. She is sore across her neck/traps but the heating pad and Tylenol provide relief. Objective Vital signs: Temperature 98.7 F 09/24/17 07:40 Pulse Rate 70 09/24/17 08:00 Respiratory Rate 20 09/24/17 08:02 Blood Pressure 142/71 H 09/24/17 07:40 Pulse Oximetry 94 09/24/17 08:02 Height/Weight/BMI: Height 1.7 m Weight 73.5 kg Body Mass Index 26.0 - Constitutional Present: no acute distress, well nourished, well developed - Routine HEENT Exam Head: Present: normocephalic Eye: Present: PERRL. Absent: conjunctival icterus, scleral injection ENT: Present: dentition normal - Routine Respiratory Exam Present: CTA bilaterally - Routine Cardiovascular Exam Present: RRR, S1, S2 - Routine Abdominal Exam Present: soft, normoactive bowel sounds, tenderness (mild upper abdominal tenderness), non distended - Routine Extremities Exam Present: edema (1+ BLE, compression stockings in place) - Routine Back/Spine/Pelvis Exam Back/Spine: Present: full ROM - Routine Musculoskeletal Exam Musculoskeletal: Present: moving extremities well - Routine Skin Exam Present: intact, dry, warm - Routine Neurological Exam Present: alert, oriented X3, CN II-XII intact, moving all extremities, normal speech - Routine Psychiatric Exam Present: normal affect, normal thought process, cooperative Results - Labs CBC & Chem 7: 09/22/17 03:54 09/24/17 04:40 Assessment and Plan (1) UTI (urinary tract infection) Current visit: No Status: Acute Assessment and Plan: Impression General debility secondary to acute illness Peripheral edema secondary to fluid overload Severe sepsis secondary to urinary tract infection with E. coli - 7-day course of Rocephin completed Atrial fibrillation - resolved, in sinus NSTEMI Pulmonary hypertension Hx TIA Asthma Seasonal ALLERGIES GERD Osteoarthritis Transaminitis - resolved Plan Tele - remains in sinus. Will check with cardiology about need for ongoing telemetry. Continue amiodarone and metoprolol. Consider increasing metoprolol vs starting MIKEY-I for better BP control; HR ranging 60s-80s. C/O cough; weight increasing despite Lasix 40 mg daily -- hx of pleural effusions on prior CXR. Repeat 2-view CXR today. Electrolytes/renal function stable on Lasix. LFTs returned to normal ranges. GI symptoms improving; consideration of SBFT if sx worsen. Will need Rx for amiodarone, metoprolol tartrate, Protonix (vs continue home Prilosec), Xarelto at time of dc from IRU. It's too early to determine Lasix duration. DVT Prophylaxis: Xarelto GI Prophylaxis: Protonix Resuscitation Status: Full Code - Physician Narrative Narrative: Date: 09/24/17 Time: 1342 Hospital Course Summary Disclaimer: The visit summary below is not to be considered part of the above Progress Note. Hospital Course: Impression General debility secondary to acute illness Peripheral edema secondary to fluid overload Severe sepsis secondary to urinary tract infection Atrial fibrillation NSTEMI Pulmonary hypertension Hx TIA Asthma Seasonal ALLERGIES GERD Osteoarthritis Plan Agree with admission to inpatient rehabilitation unit under the care of Dr. Schneider who is covering for Dr. Salas. Patient has completed a 7 day course of IV Rocephin. Will discontinue Have nursing staff place ANDREIA hose to bilateral lower extremities. Continue on Lasix 40 milligrams daily to help with edema. Baseline admission weight 70 Kg, Today she is 75.5Kg. Monitor daily weights Continue to work on aggressive bowel motivation-schedule MiraLAX and Senna plus daily, milk of magnesia as needed. Dulcolax suppositories as needed Continue on Xarelto and aspirin for anticoagulation She does report scratchy throat from what she suspects is postnasal drip and ALLERGIES. Will resume home Claritin. Will also add Mucinex and lozenges as needed Will occasionally monitor electrolytes give diuresis and potassium supplementation. BMP ordered for sunday 09/24. The hospitalist service will continue to follow patient medically manage existing comorbidities during her stay in the IRU unit. At time of discharge, her medical care will return to her primary care provider , Dr. Patt Farah Will need Rx for amiodarone, metoprolol tartrate, Protonix (vs continue home Prilosec), Apolinar at time of dc from IRU. It's too early to determine Lasix duration. 09/24/17 Tele - remains in sinus. Will check with cardiology about need for ongoing telemetry. Continue amiodarone and metoprolol. Consider increasing metoprolol vs starting MIKEY-I for better BP control; HR ranging 60s-80s. C/O cough; weight increasing despite Lasix 40 mg daily -- hx of pleural effusions on prior CXR. Repeat 2-view CXR today. Electrolytes/renal function stable on Lasix. LFTs returned to normal ranges. GI symptoms improving; consideration of SBFT if sx worsen.
[2017-09-24] MEDS: RIVAROXABAN 20 MG TABLET PO SCH (17:13)
[2017-09-25] MEDS: ACETAMINOPHEN 325 MG TABLET PO PRN ×2 (05:42→13:03)
[2017-09-25] MEDS: PANTOPRAZOLE 40 MG TABLET PO SCH ×2 (05:42→17:19)
[2017-09-25] MEDS: LORATADINE 10 MG TABLET PO SCH (05:42)
[2017-09-25] MEDS: SALINE FLUSH 10ml SYRINGE IVF PRN (05:46)
[2017-09-25] MEDS: MENTHOL COUGH DROPS (RICOLA) MM PRN (05:48)
--- NOTE | 2017-09-25 08:09 | Progress Note ---
Progress Note: Patient said shower went well and will be hitting therapy hard today since she didn't have much over the weekend. Says she feels a little stronger. Denies chest pain or dyspnea. Still having some abdominal pain but minor. Says she has some drainage today. Exam Vital Signs: Temperature 98.7 F 09/25/17 07:33 Pulse Rate 65 09/25/17 07:33 Respiratory Rate 18 09/25/17 07:33 Blood Pressure 143/73 H 09/25/17 07:33 Pulse Oximetry 93 09/25/17 07:33 Height/Weight/BMI: Height 1.7 m Weight 69.2 kg Body Mass Index 26.0 - Constitutional Present: no acute distress - Routine Respiratory Exam Present: CTA bilaterally - Routine Cardiovascular Exam Present: RRR, no murmur - Routine Abdominal Exam Present: soft Comments: slightly tender diffusely - Routine Extremities Exam Present: no edema Assessment and Plan (1) Primary osteoarthritis of right knee Current visit: No Status: Chronic (2) UTI (urinary tract infection) Current visit: No Status: Resolved (3) NSTEMI (non-ST elevated myocardial infarction) Current visit: No Status: Resolved (4) Severe sepsis Current visit: No Status: Resolved (5) PAF (paroxysmal atrial fibrillation) Current visit: No Status: Chronic (6) Debility Current visit: Yes Status: Acute (7) Myopathy Problem details: related to disuse Current visit: Yes Status: Acute Patient will continue OT and PT and continues to be very appropriate for rehabilitation.
[2017-09-25] MEDS: AMIODARONE 200 MG TABLET PO SCH (08:16)
[2017-09-25] MEDS: FUROSEMIDE 40 MG TABLET PO SCH ×3 (08:17→17:19)
[2017-09-25] MEDS: FLUTICASONE NASAL SPRAY 50mcg EA NOSTRIL SCH (08:17)
[2017-09-25] MEDS: SENNA + DOCUSATE TABLET PO SCH (08:18)
[2017-09-25] MEDS: POLYETHYL GLYCOL 3350 17gm PACKET PO SCH (08:18)
--- NOTE | 2017-09-25 08:19 | XRay Report ---
INDICATION: cough, pleural effusions PROCEDURE: CHEST 2-VIEWS UPRIGHT (PA & LAT) Encounter: Initial COMPARISON: September 20, 2017 FINDINGS: Small pleural effusions have decreased in size. Improving aeration of the lower lobes. Upper lung spencer are clear. No pneumothorax. Heart size and mediastinal contours are stable. Pulmonary vascularity is normal. Impression: Decreasing effusions and resolved pulmonary edema. .
--- NOTE | 2017-09-25 08:28 | Cardiology Progress Note ---
<Gabi Dawn M - Last Filed: 09/25/17 08:24> Subjective Principal diagnosis: AFib Interval history: Daniela is seen in follow up for atrial fibrillation. Review of telemetry shows she remains in SR. Okay to DC telemetry as requested by the patient. She denies chest pain pressure tightness, dyspnea, dizziness or weakness. Exam Vital signs: Temperature 98.7 F 09/25/17 07:33 Pulse Rate 65 09/25/17 07:33 Respiratory Rate 18 09/25/17 07:33 Blood Pressure 143/73 H 09/25/17 07:33 Pulse Oximetry 93 09/25/17 07:33 Inpatient Medications: Generic Name Dose Route Start Last Admin Trade Name Freq PRN Reason Stop Dose Admin Acetaminophen 650 mg 09/21/17 13:17 09/25/17 05:42 Tylenol PO 650 mg Q5H PRN Administration Discomfort Al Hydroxide/Mg Hydroxide 30 ml 09/21/17 13:17 Maalox Plus PO Q3H PRN Indigestion Albuterol/Ipratropium 3 ml 09/21/17 13:17 Duoneb AEROSOL Q4HR PRN Albuterol/Ipratropium 3 ml 09/22/17 19:00 09/24/17 19:37 Duoneb AEROSOL 3 ml RTBID KENN Administration Amiodarone HCl 200 mg 09/22/17 09:00 09/25/17 08:16 Pacerone PO 200 mg DAILY KENN Administration Benzocaine 1 lozenge 09/22/17 10:13 09/23/17 06:43 Cepacol Sore Throat Lozenge MM 1 lozenge PRN PRN Administration Sore throat Bisacodyl 10 mg 09/21/17 13:17 Dulcolax RECTALLY DAILY PRN Constipation Diphenhydramine HCl 25 mg 09/21/17 13:17 Benadryl PO Q6H PRN Allergy symptoms Fluticasone Propionate 2 spray 09/22/17 09:00 09/25/17 08:17 Flonase EA NOSTRIL 2 spray DAILY KENN Administration Furosemide 40 mg 09/25/17 09:00 Lasix 40 Mg Tab PO 0900,1700 KENN Guaifenesin 400 mg 09/22/17 10:13 09/23/17 06:47 Mucinex PO 400 mg TID PRN Administration Congestion Loratadine 10 mg 09/22/17 10:13 09/25/17 05:42 Claritin PO 10 mg ACB KENN Administration Magnesium Hydroxide 30 ml 09/21/17 13:17 Mom PO DAILY PRN Constipation Menthol 1 lozenge 09/21/17 13:17 09/25/17 05:48 Ricola Sf MM 1 lozenge PRN PRN Administration Cough Metoprolol Tartrate 50 mg 09/25/17 08:21 Lopressor PO BIDWM KENN Multi-Ingredient Ointment 1 applic 09/23/17 17:14 09/24/17 22:27 Analgesic [place] TP 1 applic PRN PRN Administration Ondansetron HCl 4 mg 09/21/17 13:17 Zofran IVP Q6H PRN Nausea &/or vomiting Pantoprazole Sodium 40 mg 09/21/17 17:00 09/25/17 05:42 Protonix Tab PO 40 mg ACBID KENN Administration Polyethylene Glycol 17 gm 09/22/17 11:15 09/25/17 08:18 Miralax PO 17 gm DAILY KENN Administration Potassium Chloride 40 meq 09/21/17 17:30 09/25/17 08:16 K-Dur 20 Meq Tablet PO 40 meq BIDBS KENN Administration Prochlorperazine Edisylate 10 mg 09/21/17 13:17 Compazine Iv IVP Q6H PRN Nausea &/or vomiting Rivaroxaban 20 mg 09/21/17 17:30 09/24/17 17:13 Xarelto PO 20 mg WS KENN Administration Senna/Docusate Sodium 2 tab 09/21/17 21:00 09/25/17 08:18 Senna Plus Tablet PO 2 tab BID KENN Administration Sodium Chloride 10 - 80 ml 09/21/17 13:17 09/25/17 05:46 Iv Flush IVF 10 ml PRN PRN Administration Flushing Discontinued Medications Generic Name Dose Route Start Last Admin Trade Name Freq PRN Reason Stop Dose Admin Albuterol/Ipratropium 3 ml 09/21/17 15:00 09/22/17 13:45 Duoneb AEROSOL Not Given RTQID KENN Furosemide 40 mg 09/22/17 09:00 09/25/17 08:17 Lasix 40 Mg Tab PO 40 mg DAILY KENN Administration Ceftriaxone Sodium 1 g/ Sodium 100 mls @ 200 mls/hr 09/21/17 15:00 09/21/17 16:30 Chloride IV Infused Q24H KENN Infusion Metoprolol Tartrate 25 mg 09/21/17 17:30 09/25/17 08:16 Lopressor PO 25 mg BIDWM KENN Administration Pharmacy Consult 1 each 09/22/17 09:44 Pharmacy Consult - Fall Risk 09/22/17 09:45 ONE TIME ONE - Constitutional no acute distress, well nourished, cooperative - Routine HEENT Exam Head: Present: normocephalic ENT: Present: mucous membranes moist - Routine Neck Exam Absent: JVD, carotid bruit - Routine Chest/Breast/Axilla Exam Chest wall: Absent: tenderness - Routine Respiratory Exam Present: CTA bilaterally. Absent: rales, wheezes - Routine Cardiovascular Exam Present: RRR, no murmur - Routine Abdominal Exam Present: soft, non tender - Routine Extremities Exam Present: no edema - Routine Skin Exam Present: intact, dry, warm - Routine Neurological Exam Present: alert, oriented X3 - Routine Psychiatric Exam Present: normal affect, normal thought process Results 09/22/17 03:54 09/24/17 04:40 Intake and Output 09/24/17 09/25/17 09/25/17 22:59 06:59 14:59 Intake Total 1040 / 1040 Balance 1040 / 1040 Intake: Oral 1040 / 1040 Other: Urine Appearance Clear Clear Urine Color Yellow Yellow Urine Odor Normal Normal Stool Color Brown Yellow Stool Consistency Soft Formed Size of Bowel Movement Small # Voids 1 1 Weight 152 lb 8.958 oz - Imaging and Cardiology Imaging & Cardiology Narrative: Date of Exam: 09/24/17 Ordering Provider: Charlene Oconnor APRN Type of Exam(s): XR chest 2V Reason for Exam(s): cough, pleural effusions INDICATION: cough, pleural effusions PROCEDURE: CHEST 2-VIEWS UPRIGHT (PA & LAT) Encounter: Initial COMPARISON: September 20, 2017 FINDINGS: Small pleural effusions have decreased in size. Improving aeration of the lower lobes. Upper lung spencer are clear. No pneumothorax. Heart size and mediastinal contours are stable. Pulmonary vascularity is normal. Impression: Decreasing effusions and resolved pulmonary edema. 09/25/17 08:33 Assessment and Plan - Assessment and Plan (1) NSTEMI (non-ST elevated myocardial infarction) Status: Resolved (2) Overweight (BMI 25.0-29.9) Status: Acute (3) PAF (paroxysmal atrial fibrillation) Status: Chronic - Assessment and Plan 09/21/17 PAF (paroxysmal atrial fibrillation) Current visit: No Status: Chronic Continue Amiodarone for antiarrhythmic therapy - Continue Xarelto for stroke prevention - monitor cardiac telemetry NSTEMI (non-ST elevated myocardial infarction) Current visit: No Status: Resolved Likely type II due to acute illness - Denies chest pain - No ischemic EKG changes - Will continue to monitor Overweight (BMI 25.0-29.9) Current visit: No Status: Acute Thank you for allowing us to participate in the care of this patient, we will follow along with you. 09/25/17 Suboptimal control of BP: Increase Metoprolol to 50mg BID - Increase Lasix to 40mg BID - Check BMP now - BMP and Mag in AM - Okay to DC telemetry Hospital Course Summary Disclaimer: The visit summary below is not to be considered part of the above Progress Note. Hospital Course: Impression General debility secondary to acute illness Peripheral edema secondary to fluid overload Severe sepsis secondary to urinary tract infection Atrial fibrillation NSTEMI Pulmonary hypertension Hx TIA Asthma Seasonal ALLERGIES GERD Osteoarthritis Plan Agree with admission to inpatient rehabilitation unit under the care of Dr. Schneider who is covering for Dr. Salas. Patient has completed a 7 day course of IV Rocephin. Will discontinue Have nursing staff place ANDREIA hose to bilateral lower extremities. Continue on Lasix 40 milligrams daily to help with edema. Baseline admission weight 70 Kg, Today she is 75.5Kg. Monitor daily weights Continue to work on aggressive bowel motivation-schedule MiraLAX and Senna plus daily, milk of magnesia as needed. Dulcolax suppositories as needed Continue on Xarelto and aspirin for anticoagulation She does report scratchy throat from what she suspects is postnasal drip and ALLERGIES. Will resume home Claritin. Will also add Mucinex and lozenges as needed Will occasionally monitor electrolytes give diuresis and potassium supplementation. BMP ordered for sunday 09/24. The hospitalist service will continue to follow patient medically manage existing comorbidities during her stay in the IRU unit. At time of discharge, her medical care will return to her primary care provider , Dr. Patt Farah Will need Rx for amiodarone, metoprolol tartrate, Protonix (vs continue home Prilosec), Xarelto at time of dc from IRU. It's too early to determine Lasix duration. 09/24/17 Tele - remains in sinus. Will check with cardiology about need for ongoing telemetry. Continue amiodarone and metoprolol. Consider increasing metoprolol vs starting MIKEY-I for better BP control; HR ranging 60s-80s. C/O cough; weight increasing despite Lasix 40 mg daily -- hx of pleural effusions on prior CXR. Repeat 2-view CXR today. Electrolytes/renal function stable on Lasix. LFTs returned to normal ranges. GI symptoms improving; consideration of SBFT if sx worsen. <Fernando Brady - Last Filed: 09/27/17 13:16> Exam Vital signs: Temperature 98.4 F 09/25/17 16:00 Pulse Rate 64 09/25/17 16:00 Respiratory Rate 16 09/25/17 16:00 Blood Pressure 149/72 H 09/25/17 16:00 Pulse Oximetry 94 09/25/17 16:00 Inpatient Medications: Discontinued Medications Generic Name Dose Route Start Last Admin Trade Name Freq PRN Reason Stop Dose Admin Acetaminophen 650 mg 09/21/17 13:17 09/25/17 13:03 Tylenol PO 650 mg Q5H PRN Administration Discomfort Al Hydroxide/Mg Hydroxide 30 ml 09/21/17 13:17 Maalox Plus PO Q3H PRN Indigestion Albuterol/Ipratropium 3 ml 09/21/17 15:00 09/22/17 13:45 Duoneb AEROSOL Not Given RTQID KENN Albuterol/Ipratropium 3 ml 09/21/17 13:17 Duoneb AEROSOL Q4HR PRN Albuterol/Ipratropium 3 ml 09/22/17 19:00 09/25/17 10:45 Duoneb AEROSOL 3 ml RTBID KENN Administration Amiodarone HCl 200 mg 09/22/17 09:00 09/25/17 08:16 Pacerone PO 200 mg DAILY KENN Administration Benzocaine 1 lozenge 09/22/17 10:13 09/23/17 06:43 Cepacol Sore Throat Lozenge MM 1 lozenge PRN PRN Administration Sore throat Bisacodyl 10 mg 09/21/17 13:17 Dulcolax RECTALLY DAILY PRN Constipation Diphenhydramine HCl 25 mg 09/21/17 13:17 Benadryl PO Q6H PRN Allergy symptoms Fluticasone Propionate 2 spray 09/22/17 09:00 09/25/17 08:17 Flonase EA NOSTRIL 2 spray DAILY KENN Administration Furosemide 40 mg 09/22/17 09:00 09/25/17 08:17 Lasix 40 Mg Tab PO 40 mg DAILY KENN Administration Furosemide 40 mg 09/25/17 09:00 09/25/17 17:19 Lasix 40 Mg Tab PO 40 mg 0900,1700 KENN Administration Guaifenesin 400 mg 09/22/17 10:13 09/25/17 13:04 Mucinex PO 400 mg TID PRN Administration Congestion Ceftriaxone Sodium 1 g/ Sodium 100 mls @ 200 mls/hr 09/21/17 15:00 09/21/17 16:30 Chloride IV Infused Q24H [facility] Infusion Loratadine 10 mg 09/22/17 10:13 09/25/17 05:42 Claritin PO 10 mg ACB KENN Administration Magnesium Hydroxide 30 ml 09/21/17 13:17 09/25/17 12:04 Mom PO 15 ml DAILY PRN Administration Constipation Menthol 1 lozenge 09/21/17 13:17 09/25/17 05:48 Ricola Sf MM 1 lozenge PRN PRN Administration Cough Metoprolol Tartrate 25 mg 09/21/17 17:30 09/25/17 08:16 Lopressor PO 25 mg BIDWM KENN Administration Metoprolol Tartrate 50 mg 09/25/17 08:21 09/25/17 17:18 Lopressor PO 50 mg BIDWM KENN Administration Multi-Ingredient Ointment 1 applic 09/23/17 17:14 09/24/17 22:27 Analgesic [place] TP 1 applic PRN PRN Administration Ondansetron HCl 4 mg 09/21/17 13:17 Zofran IVP Q6H PRN Nausea &/or vomiting Pantoprazole Sodium 40 mg 09/21/17 17:00 09/25/17 17:19 Protonix Tab PO 40 mg ACBID KENN Administration Pharmacy Consult 1 each 09/22/17 09:44 Pharmacy Consult - Fall Risk 09/22/17 09:45 ONE TIME ONE Polyethylene Glycol 17 gm 09/22/17 11:15 09/25/17 08:18 Miralax PO 17 gm DAILY KENN Administration Potassium Chloride 40 meq 09/21/17 17:30 09/25/17 17:18 K-Dur 20 Meq Tablet PO 40 meq BIDBS KENN Administration Prochlorperazine Edisylate 10 mg 09/21/17 13:17 Compazine Iv IVP Q6H PRN Nausea &/or vomiting Rivaroxaban 20 mg 09/21/17 17:30 09/25/17 17:19 Xarelto PO 20 mg WS KENN Administration Senna/Docusate Sodium 2 tab 09/21/17 21:00 09/25/17 08:18 Senna Plus Tablet PO 2 tab BID KENN Administration Sodium Chloride 10 - 80 ml 09/21/17 13:17 09/25/17 05:46 Iv Flush IVF 10 ml PRN PRN Administration Flushing Results 09/22/17 03:54 09/25/17 08:45 Assessment and Plan - Assessment and Plan (1) Overweight (BMI 25.0-29.9) Status: Acute (2) NSTEMI (non-ST elevated myocardial infarction) Status: Resolved (3) PAF (paroxysmal atrial fibrillation) Status: Chronic - Attestation Attestation Narrative: 09/27/17 13:16 Recommendation After examining the patient I agree with the above assessment. I am involved in the formulation of the patient's plan of care. Hospital Course Summary Disclaimer: The visit summary below is not to be considered part of the above Progress Note.
[2017-09-25] MEDS: ALBUTEROL/IPRATROPIUM 2.5mg-0.5mg/3ml NEB AEROSOL SCH (10:45)
[2017-09-25 10:52] VITALS: RESP 16
[2017-09-25] MEDS: GUAIFENESIN 400MG TABLET PO PRN (13:04)
--- NOTE | 2017-09-25 13:09 | IRU Team Meeting ---
IRU Team Meeting - Nursing Bladder Assistive Devices Utilized:: Absorbent Pad Bladder Management Level of Assist: Modified Independent Bladder Frequency of Accidents: No accidents Bowel Assistive Devices Utilized:: Medication, Absorbent Pad Bowel Management Level of Assist: Modified Independent Bowel Frequency of Accidents: No accidents Vital Signs: Vital Signs - 24 hr 09/24/17 15:56 09/24/17 16:00 09/24/17 19:37 Temperature 98.3 F Pulse Rate 69 68 Respiratory Rate 16 16 Blood Pressure 149/67 H Pulse Oximetry 96 09/24/17 20:35 09/25/17 00:00 09/25/17 07:25 Temperature 98.0 F Pulse Rate 70 65 67 Respiratory Rate 16 Blood Pressure 138/71 Pulse Oximetry 95 09/25/17 07:33 09/25/17 10:45 Temperature 98.7 F Pulse Rate 65 Respiratory Rate 18 16 Blood Pressure 143/73 H Pulse Oximetry 93 65 L Current Medications: Acetaminophen (Tylenol) 650 mg PO Q5H PRN PRN Reason: Discomfort Last Admin: 09/25/17 13:03 Dose: 650 mg Al Hydroxide/Mg Hydroxide (Maalox Plus) 30 ml PO Q3H PRN PRN Reason: Indigestion Albuterol/Ipratropium (Duoneb) 3 ml AEROSOL Q4HR PRN Albuterol/Ipratropium (Duoneb) 3 ml AEROSOL RTBID [facility] Last Admin: 09/25/17 10:45 Dose: 3 ml Amiodarone HCl (Pacerone) 200 mg PO DAILY [facility] Last Admin: 09/25/17 08:16 Dose: 200 mg Benzocaine (Cepacol Sore Throat Lozenge) 1 lozenge MM PRN PRN PRN Reason: Sore throat Last Admin: 09/23/17 06:43 Dose: 1 lozenge Bisacodyl (Dulcolax) 10 mg RECTALLY DAILY PRN PRN Reason: Constipation Diphenhydramine HCl (Benadryl) 25 mg PO Q6H PRN PRN Reason: Allergy symptoms Fluticasone Propionate (Flonase) 2 spray EA NOSTRIL DAILY [facility] Last Admin: 09/25/17 08:17 Dose: 2 spray Furosemide (Lasix 40 Mg Tab) 40 mg PO 0900,1700 [facility] Last Admin: 09/25/17 10:06 Dose: Not Given Guaifenesin (Mucinex) 400 mg PO TID PRN PRN Reason: Congestion Last Admin: 09/25/17 13:04 Dose: 400 mg Loratadine (Claritin) 10 mg PO ACB [facility] Last Admin: 09/25/17 05:42 Dose: 10 mg Magnesium Hydroxide (Mom) 30 ml PO DAILY PRN PRN Reason: Constipation Last Admin: 09/25/17 12:04 Dose: 15 ml Menthol (Ricola Sf) 1 lozenge MM PRN PRN PRN Reason: Cough Last Admin: 09/25/17 05:48 Dose: 1 lozenge Metoprolol Tartrate (Lopressor) 50 mg PO BIDWM [facility] Multi-Ingredient Ointment (Analgesic [place]) 1 applic TP PRN PRN Last Admin: 09/24/17 22:27 Dose: 1 applic Ondansetron HCl (Zofran) 4 mg IVP Q6H PRN PRN Reason: Nausea &/or vomiting Pantoprazole Sodium (Protonix Tab) 40 mg PO ACBID [facility] Last Admin: 09/25/17 05:42 Dose: 40 mg Polyethylene Glycol (Miralax) 17 gm PO DAILY [facility] Last Admin: 09/25/17 08:18 Dose: 17 gm Potassium Chloride (K-Dur 20 Meq Tablet) 40 meq PO BIDBS [facility] Last Admin: 09/25/17 08:16 Dose: 40 meq Prochlorperazine Edisylate (Compazine Iv) 10 mg IVP Q6H PRN PRN Reason: Nausea &/or vomiting Rivaroxaban (Xarelto) 20 mg PO WS [facility] Last Admin: 09/24/17 17:13 Dose: 20 mg Senna/Docusate Sodium (Senna Plus Tablet) 2 tab PO BID [facility] Last Admin: 09/25/17 08:18 Dose: 2 tab Sodium Chloride (Iv Flush) 10 - 80 ml IVF PRN PRN PRN Reason: Flushing Last Admin: 09/25/17 05:46 Dose: 10 ml - Physical Therapy Bed, Chair, Wheelchair Transfer Assist: Independent Ambulation Ability: Independent Ambulation Distance: 800 Stair Climbing Ability: Modified Independent Number of Steps Climbed: 12 Car Transfer Ability: Modified Independent - Occupational Therapy Eating Ability: Independent Grooming Ability: Independent Bathing Ability: Modified Independent Upper Body Dressing Ability: Independent Lower Body Dressing Ability: Independent Tub Transfer Assist: Modified Independent Toileting Assist: Independent Toilet Transfer Assist: Independent - Goals Physical Therapy Goals: 09/25/17: 1. JHAVERI balance test of 50/56. 2. D/C planning. Occupational Therapy Goals: 09/25/17: 1. Demo meal prep modified independent. 2. Demo laundry task modified independent. 3. Demo vacuuming modified independent. 4. Discharge planning. - Barriers to Discharge Barriers to Attaining Goals: Other (Balance and discharge medications (needs to have them sent)) - Care Plan Anticipated Length of Stay (days): 6 Anticipated DC Destination: Home, Self Care I have led this team conference and agree with the plan. Will plan on discharge tomorrow.
--- NOTE | 2017-09-25 13:28 | Discharge Summary ---
Discharge Information Date of admission: 09/21/17 12:58 Anticipated date of discharge: 09/26/17 Attending Physician: Carmen Gonzalez DO Primary care physician: Patt Farah MD Consults: 09/21/17 13:17 [Physician Consult] [CONS] Routine Consulting Provider: Fernando Brady Reason For Exam: NSTEMI-? type II secondary to sepsis Ordering Provider has Notified Form Grader: No 09/21/17 17:11 Physician Consult [CONS] Routine Consulting Provider: Adela Downs Reason For Exam: medical management Ordering Provider has Notified Form Grader: Yes - Discharge Diagnosis (1) Primary osteoarthritis of right knee Status: Chronic (2) UTI (urinary tract infection) Status: Resolved (3) NSTEMI (non-ST elevated myocardial infarction) Status: Resolved (4) Severe sepsis Status: Resolved (5) PAF (paroxysmal atrial fibrillation) Status: Chronic (6) Debility Status: Acute (7) Myopathy Status: Acute - Laboratory Labs: 09/22/17 03:54 09/25/17 08:45 - Radiology Radiology: = = = = = = = = = = = = = = = = = = = = = = = = = = = = = = = = = = = = = = = = = = = = = = = = = = = = = = = = = = = Date of Exam: 09/24/17 Ordering Provider: Charlene Oconnor APRN Type of Exam(s): XR chest 2V Reason for Exam(s): cough, pleural effusions INDICATION: cough, pleural effusions PROCEDURE: CHEST 2-VIEWS UPRIGHT (PA & LAT) Encounter: Initial COMPARISON: September 20, 2017 FINDINGS: Small pleural effusions have decreased in size. Improving aeration of the lower lobes. Upper lung spencer are clear. No pneumothorax. Heart size and mediastinal contours are stable. Pulmonary vascularity is normal. Impression: Decreasing effusions and resolved pulmonary edema. History of Present Illness HPI: Mrs. Montalvo is a 77 yo female who came to rehab from acute care on 09/25/17. She was admitted to the CCU with dehydration, UTI/YURIY, NSTEMI, metabolic acidosis, encephalopathy and severe sepsis. She was started on IV ceftriaxone and IV fluids. She was stabilized and transferred to the medical floor on 09/16/17. She continued with some chest discomfort and diagnosed with Atrial fibrillation on 09/19. She was transferred to rehab 09/21. Objective Vital signs: Temperature 98.7 F 09/25/17 07:33 Pulse Rate 65 09/25/17 07:33 Respiratory Rate 16 09/25/17 10:45 Blood Pressure 143/73 H 09/25/17 07:33 Pulse Oximetry 65 L 09/25/17 10:45 Rhythm: Normal Sinus Rhythm Height/Weight/BMI: Height 1.7 m Weight 69.2 kg Body Mass Index 26.0 - Constitutional Present: no acute distress - Routine HEENT Exam Head: Present: normocephalic, atraumatic - Routine Respiratory Exam Present: CTA bilaterally - Routine Cardiovascular Exam Present: RRR - Routine Abdominal Exam Present: soft Comments: slight tenderness - Routine Extremities Exam Present: no edema - Routine Musculoskeletal Exam Musculoskeletal: Present: normal strength - Routine Neurological Exam Present: alert, oriented X3 Hospital Course This is a general summary of the patient's hospital course. For more details refer to the complete medical record. Patient was admitted to rehab on 09/21/17. Has worked with PT and OT and has made very good progress. Meeting all goals with PT and OT. She is independent it transfers and toilet transfers. She walked 475 feet today independently and walked 12 stairs modified independent. Independent in all of her ADLS Did have a cough and CXR was done that is continuing to improve. Lasix was increased. Patient also had some abdominal pain but has improved. Her level of function is really very close to normal and is ready for dismissal. Hospital course: . Time spent with patient: 25 - 35 minutes Resuscitation Status: Full Code Discharge Plan - Discharge Disposition Discharge Date: 09/25/17 Disposition: 01 Discharged Home, Self-Care *Condition: Stable Reason For Visit (Visit label in EMR): Dissuse Myopathy - Discharge Medications *Discharge Medications: New Amiodarone [Pacerone] 200 mg PO DAILY #30 tab Furosemide [Lasix 40 mg Tab] 40 mg PO 0900,1700 #30 tab Metoprolol Tartrate [Lopressor] 50 mg PO BIDWM #60 tab PEG 3350 17gm PACKET [Miralax] 17 gm PO DAILY packet Rivaroxaban [Xarelto] 20 mg PO WS #30 tab Senna + Docusate [Senna Plus Tablet] 2 tab PO BID tab Potassium Chloride [K-DUR 20 mEq Tablet] 40 meq PO BIDBS #60 tab Continue Azelastine HCl 2 spray NS DAILY #0 Albuterol Sulfate [Ventolin Hfa] 2 puff INH Q4-6H PRN #0 PRN Reason: Wheezing DiphenhydrAMINE [Benadryl] 1 cap PO Q6H PRN PRN Reason: Allergy Symptoms Omeprazole [Prilosec] 1 cap PO ACB Melatonin/Pyridoxine HCl (B6) [Melatonin 10 mg Tablet] 1 - 2 tab PO HS PRN PRN Reason: Sleep Acetaminophen [Tylenol] 650 mg PO QID tab Fluticasone Nasal [place] [Flonase] 2 spray NS DAILY #0 - Discharge Packet/Instructions *Diet: Cardiac diet *Activity: As tolerated *Pain Management/Treatment: Can take tylenol as needed for pain *Wound Care: N/A *Expected Signs/Symptoms: Call if decreased endurance, fatigue *Notify Physician if: Call if fever, weakness, chest pain *During Business Hours Contact: Contact your primary care provider or Dr. Brady *After Business Hours Contact: Contact the on-call provider *Pending Lab/Results: No Pending Lab Outpatient Orders: BMP - Basic Metabolic - [facility] Time Frame: 1 Week, Location: None Selected - Referrals/Follow Up *Referrals/Follow Up: Patt Farah MD [Primary Care Provider] - (Dr. Patt Farah on 10/04/17 at 9:20 am for Hosp. follow-up. [facility] [address] [place] [id number]) Fernando Brady MD [Physician] - 2 Weeks - Patient Handouts - Dismissal Complete Discharge Instructions are:: Complete Physician Narrative - Narrative Attestation Narrative: Date: 09/25/17 Time: 1325 Carmen Gonzalez DO
[2017-09-25 16:04] VITALS: BP 149/72; PULSE 64; TEMP 98.4; O2SAT 94
[2017-09-25] MEDS: RIVAROXABAN 20 MG TABLET PO SCH (17:19)
== END 2017-09-25 18:37 | disposition home or self-care (01) | DRG 91 ==
PROVIDERS: ADMIT Family Medicine; ATTEND Internal Medicine